=== PATIENT | male | born 1960 | race Caucasian/White ===

== ENCOUNTER 2020-05-04 14:52 | Inpatient (IN) | payer MEDICARE, SELFPAY ==
[2020-05-04] VITALS (8 sets, daily range): BP systolic 119–162; BP diastolic 70–87; PULSE 75–106; RESP 16–18; TEMP 36.5–36.9; O2SAT 95–97
--- NOTE | 2020-05-04 15:05 | XR_ITS ---
WS: [id number] Exam: XR foot RT min 3V* [id number] Date/Time of Exam: 05/04/2020 3:09 PM Reason For Exam: infection Comparison 08/31/2015. No acute fracture noted. Marked soft tissue swelling of the second toe. No obvious bone destruction a t this time. There is been amputation of the third toe. Advanced degenerative changes noted in the mi dfoot joints. Posterior heel spur. No soft tissue foreign bodies are seen. XR/XR foot RT min 3V* [id number] IMPRESSION: 1. Marked soft tissue swelling of the second toe. No bone destruction identifie d at this time. 2. No acute fracture. Degenerative changes. 3. Amputation of the third toe.
--- NOTE | 2020-05-04 17:00 | XR_ITS ---
WS: [id number] Exam: XR chest 1V portable [id number] Date/Time of Exam: 05/04/2020 5:07 PM Reason For Exam: reduced breath sounds Comparison 09/16/2015. Findings: The lungs are clear and fully expanded. Costophrenic angles are sharp. No infiltrates. Bronchovascula r relief appears normal. Cardiac silhouette is unremarkable. Bony elements are intact. XR/XR chest 1V portable [id number] IMPRESSION: Unremarkable chest radiograph.
[2020-05-04 17:03] LABS: Glucose Point of Care 348 mg/dL (70-110)
--- NOTE | 2020-05-04 17:05 | ECG_ITS ---
[facility] Test Date: 2020-05-04 Pat Name: Evan Iverson Jr Department: Room: Gender: Male Mental Telepathist: : 1960 Requested By: Jorge Black Order Number: [id number] Reading MD: ALONSO BRANCH Measurements Intervals [place] Rate: 93 P: -1 CA: 129 QRS: -4 QRSD: 97 T: 39 QT: 349 QTc: 436 Interpretive Statements SINUS RHYTHM LOW QRS VOLTAGE IN PRECORDIAL LEADS [QRS DEFLECTION < 1.0 mV IN CHEST LEADS] No previous ECG available for comparison Electronically Signed On 05-04-2020 20:07:11 NETWORK FIREWALL ENGINEER by ALONSO BRANCH [id number]
--- NOTE | 2020-05-04 17:06 | W.ED.EXTPRO ---
HPI - Extremity Problem General: Chief complaint: Extremity Problem,Nontraumatic Stated complaint: infected toe on right foot. Dr. Haas sent over Time Seen by Provider: 05/04/20 16:49 History of Present Illness: HPI Narrative: The patient is a 60-year-old male type II diabetic who comes to the ER complaining of right second toe swelling. He was seen at podiatry earlier today and told to come to the ER for evaluation. His right second toe has a large abscess and cellulitis to it extending to his right midfoot. He takes nothing for his diabetes. He says the oral medications make him vomit and the insulin makes him feel sick to his stomach. I described to him he already has his right third toe amputated and then they will start cutting feet legs off, kidney failure, infections, blindness, impotence, and . He says I have heard it all before man I do not care I am not going to take those medicines. MD Complaint: extremity pain and extremity swelling Location: right Quality: sharp Radiation: none Relieving factors: nothing Associated symptoms: Reports no associated symptoms; Deny chest pain or rash Review of Systems General: Reports: 10 or more systems reviewed and unremarkable except in HPI and below Const: Denies: fatigue Eyes: Denies: change in vision, blurry vision or eye redness ENMT: Denies: throat pain, swelling of lips/tongue, ear or mastoid pain or nasal congestion Card: Denies: chest pain, palpitations, irregular heart rhythm, edema, dyspnea on exertion or orthopnea Resp: Denies: dyspnea, productive cough or non-productive cough GI: Denies: abdominal pain, diarrhea or GI cramping : Denies: flank pain, urinary frequency or urinary urgency Musc: Reports: joint pain; Denies: neck pain, back pain, extremity pain, joint redness, limited range of motion or muscle weakness Skin/Breast: Denies: rash, pruritus, erythema, skin pain or skin tenderness Neuro: Denies: headache(s), numbness in extremities, weakness in extremities, sensory changes, difficulty walking, dizziness, confusion or Slurred speech present Psych: Denies: anxiety or depression Endo: Denies: polyuria All/Imm: Denies: urticaria, throat swelling or tongue swelling Physical Exam Const: COMMON NORMALS: no acute distress, average body habitus, patient oriented x3, no limitations, healthy appearing, alert and well nourished GENERAL APPEARANCE: cooperative, comfortable, well kempt and well developed ORIENTATION/CONSCIOUSNESS: Yes awake, Yes oriented to person, Yes oriented to place and Yes oriented to time HENMT: COMMON NORMALS: normocephalic, external ears normal and Normal external nose present HEAD & SCALP: normal to inspection and normocephalic NOSE: Normal external nose present EXTERNAL EAR: Yes external ears normal MOUTH: Normal oral and palatal mucosa present THROAT: posterior oropharynx normal Eye: COMMON NORMALS: Equal, round and reactive pupils present and EOMs intact bilaterally GENERAL EYE: appearance normal, both eyes and all related structures PUPIL: Yes Equal, round and reactive pupils present Neck/C-Spine: COMMON NORMALS: full ROM, no lymphadenopathy, no meningeal signs and no JVD GENERAL: Yes normal visual inspection Lymph: LYMPHATIC: no lymphadenopathy noted Chest: COMMONS NORMALS: normal inspection of the chest and normal palpation of entire chest wall Resp: COMMON NORMALS: normal respiratory effort, No retractions, No use of accessory muscles, clear to auscultation bilaterally and percussion normal EFFORT & INSPECTION: Yes able to speak in complete sentences AUSCULTATION: clear to auscultation bilaterally PERCUSSION: percussion normal Cardio: COMMON NORMALS: no JVD, regular rhythm, S1 normal heart sound present, S2 normal heart sound present and Peripheral pulses 2+ throughout RATE: tachycardic (100) RHYTHM: regular rhythm HEART SOUNDS: S1 normal heart sound present and S2 normal heart sound present PERIPHERAL PULSES: Peripheral pulses 2+ throughout GI: COMMON NORMALS: Normal to inspection, nondistended, normoactive bowel sounds present, Soft to palpation, non-tender and no masses INSPECTION: Yes normal to inspection PALPATION: Yes Soft to palpation : COMMON NORMALS: Yes no CVA tenderness BLADDER/KIDNEY EXAM: Yes no CVA tenderness Back/Pelvis: COMMON NORMALS: no CVA tenderness, thoracic and lumbar spine normal to inspection, no thoracic nor lumbar tenderness and thoraco-lumbar ROM normal Extremity: COMMON NORMALS: normal to inspection, full ROM, capillary refill normal, no joint enlargement and no pedal edema GENERAL: Yes normal exam except as noted Neuro: COMMON NORMALS: patient oriented x3, CN's II-XII intact bilaterally, moves all extremities, no focal motor deficits, no sensory deficits noted and gait normal SENSORIUM/ORIENTATION: Yes alert, Yes oriented to person, Yes oriented to place and Yes oriented to time MENINGEAL SIGNS: Yes no meningeal signs Psych: COMMON NORMALS: mental status grossly normal, Normal thought process present, cooperative, normal affect and speech normal APPEARANCE: Yes well kempt ATTITUDE: Yes calm SPEECH: Yes normal speech THOUGHT PROCESS: Normal thought process present Skin: COMMON NORMALS: no rashes or lesions noted NARRATIVE SKIN EXAM: Right third toe amputated. Right second toe large and swollen with obvious large abscess to the distal aspect. Likely need surgical drainage or amputation. Cellulitis extending to right midfoot from the abscess. Associated mild swelling and tenderness in the foot GENERAL SKIN EXAM: no rashes or lesions noted Course Vital Signs: Vital signs: Vital Signs Temperature 98.4 F 05/04/20 15:00 Pulse Rate 96 05/04/20 17:03 Respiratory Rate 18 05/04/20 17:03 Blood Pressure 119/78 05/04/20 17:03 Pulse Oximetry 97 05/04/20 17:03 MDM - Extremity (Nontraumatic) MDM Narrative: Medical decision making narrative: Patient comes in from Dr. Haas's office with a right second toe abscess. He is a noncompliant diabetic and refuses to take anything for his diabetes due to side effects. He already has his right third toe amputated. X-ray is negative for osteomyelitis but does show soft tissue swelling. He also has cellulitis to the right midfoot. He was started on IV Vanco, Zosyn, and IV fluids. Discussed with Dr. Haas who interestingly says he did not see him today. He has no records of him and his system either. He also says he is not on-call and cannot consult on this patient. Discussed with Dr. Connelly who declined the consult because he does not do toe abscesses. Discussed with who will follow him on the floor. Recommends CT IV contrast. Lab Data: Labs: Lab Results 05/04/20 05/04/20 05/04/20 Range/Units 16:58 17:10 17:10 WBC 8.2 (4.0-10.0) 10^3/ uL RBC 5.24 (4.1-5.3) 10^6/u L Hgb 14.8 (11.7-16.6) g/dL Hct 44.5 (42.0-52.0) % MCV 84.9 (80-94) fL MCH 28.2 (28.0-34.0) pg MCHC 33.3 (30.0-36.0) g/dL RDW 11.6 L (12.1-15.1) % Plt Count 253 (130-400) 10^3/c mm MPV 9.3 (7.4-10.4) fL Neut % (Auto) 71.9 % Lymph % (Auto) 13.0 % [place] % (Auto) 14.1 % Eos % (Auto) 0.4 % Baso % (Auto) 0.2 % Neut # (Auto) 5.88 (1.8-7.7) 10^3/u L Lymph # (Auto) 1.1 (0.8-4.8) 10^3/u L [place] # (Auto) 1.2 H (0.2-0.9) 10^3/u L Eos # (Auto) 0.0 (0.0-0.8) 10^3/u L Baso # (Auto) 0.0 (0.0-0.1) 10^3/u L Nucleated RBC % (a uto) 0 % Nucleated RBCs # 0.0 /100WBC Sodium 130 L (136-145) mmol/L Potassium 4.5 (3.5-5.1) mmol/L Chloride 95 L (98-107) mmol/L Carbon Dioxide 23 (22-29) mmol/L Anion Gap 16.5 (5-19) BUN 14 (8-23) mg/dL Creatinine 0.7 (0.7-1.2) mg/dL GFR Calculation 114.3 (90-130) mL/min Glucose 350 H (65-115) mg/dL POC Glucose 348 H (70-110) mg/dL Calculated Osmolal ity 284 L (285-295) mOsm/k g Lactic Acid (0.5-2.2) mmol/L Calcium 9.1 (8.5-10.5) mg/dL Total Bilirubin 0.7 (0.15-1.2) mg/dL AST 10 (0-40) U/L ALT 12 (0-41) U/L Alkaline Phosphata se 74 (40-130) IU/L C-Reactive Protein 107.9 H (0.0-4.9) mg/L Total Protein 7.5 (6.6-8.7) g/dL Albumin 3.8 (3.5-5.2) g/dL Globulin 3.7 (1.3-4.6) g/dL 05/04/20 Range/Units 17:10 WBC (4.0-10.0) 10^3/ uL RBC (4.1-5.3) 10^6/u L Hgb (11.7-16.6) g/dL Hct (42.0-52.0) % MCV (80-94) fL MCH (28.0-34.0) pg MCHC (30.0-36.0) g/dL RDW (12.1-15.1) % Plt Count (130-400) 10^3/c mm MPV (7.4-10.4) fL Neut % (Auto) % Lymph % (Auto) % [place] % (Auto) % Eos % (Auto) % Baso % (Auto) % Neut # (Auto) (1.8-7.7) 10^3/u L Lymph # (Auto) (0.8-4.8) 10^3/u L [place] # (Auto) (0.2-0.9) 10^3/u L Eos # (Auto) (0.0-0.8) 10^3/u L Baso # (Auto) (0.0-0.1) 10^3/u L Nucleated RBC % (a uto) % Nucleated RBCs # /100WBC Sodium (136-145) mmol/L Potassium (3.5-5.1) mmol/L Chloride (98-107) mmol/L Carbon Dioxide (22-29) mmol/L Anion Gap (5-19) BUN (8-23) mg/dL Creatinine (0.7-1.2) mg/dL GFR Calculation (90-130) mL/min Glucose (65-115) mg/dL POC Glucose (70-110) mg/dL Calculated Osmolal ity (285-295) mOsm/k g Lactic Acid 1.3 (0.5-2.2) mmol/L Calcium (8.5-10.5) mg/dL Total Bilirubin (0.15-1.2) mg/dL AST (0-40) U/L ALT (0-41) U/L Alkaline Phosphata se (40-130) IU/L C-Reactive Protein (0.0-4.9) mg/L Total Protein (6.6-8.7) g/dL Albumin (3.5-5.2) g/dL Globulin (1.3-4.6) g/dL Discharge Plan Discharge Patient Disposition: Admitted As Inpatient Clinical Impression: Abscess of second toe of right foot, Cellulitis, Hx of medication noncompliance Condition: Stable Coding Level of Care Code ED Investigator Welfare for Mayeg Fwd Exam Comprehensive
[2020-05-04 17:22] LABS: Basophils % 0.2 %; Eosinophils % 0.4 %; Hematocrit 44.5 % (42.0-52.0); Hemoglobin 14.8 g/dL (11.7-16.6); Lymphocytes # 1.1 10^3/uL (0.8-4.8); Mean Corpuscular HGB Conc 33.3 g/dL (30.0-36.0); Mean Corpuscular Hemoglobin 28.2 pg (28.0-34.0); Mean Corpuscular Volume 84.9 fL (80-94); Mean Platelet Volume 9.3 fL (7.4-10.4); Monocytes # 1.2 10^3/uL (0.2-0.9); Monocytes % 14.1 %; Neutrophils # 5.88 10^3/uL (1.8-7.7); Neutrophils % 71.9 %; Nucleated Red Blood Cells % 0 %; Platelet Count 253 10^3/cmm (130-400); Red Blood Count 5.24 10^6/uL (4.1-5.3); Red Cell Distribution Width 11.6 % (12.1-15.1); White Blood Count 8.2 10^3/uL (4.0-10.0)
[2020-05-04 17:40] LABS: Lactic Sepsis W/Reflex 1.3 mmol/L (0.5-2.2)
[2020-05-04] MEDS: vancomycin 1,000 MG in sodium chloride 0.9% 250 ML 250 MG IV ×2 (17:40→17:56)
[2020-05-04] MEDS: piperacillin-tazobactam 3.375 GM in sodium chloride 0.9% (plus) 50 ML IV (17:41)
[2020-05-04] MEDS: sodium chloride 0.9% 1,000 ML 999 ML IV (17:41)
[2020-05-04 17:47] LABS: Alanine Aminotransferase 12 U/L (0-41); Albumin Level 3.8 g/dL (3.5-5.2); Alkaline Phosphatase 74 IU/L (40-130); Anion Gap 16.5 (5-19); Aspartate Amino Transferase 10 U/L (0-40); Blood Urea Nitrogen 14 mg/dL (8-23); C Reactive Protein 107.9 mg/L (0.0-4.9); Calcium 9.1 mg/dL (8.5-10.5); Carbon Dioxide 23 mmol/L (22-29); Chloride 95 mmol/L (98-107); Creatinine Clr Calc Pharmacy 150.9269; Globulin 3.7 g/dL (1.3-4.6); Glomerular Filtration Rate 114.3 mL/min (90-130); Glucose 350 mg/dL (65-115); Osmolality Calculated 284 mOsm/kg (285-295); Potassium 4.5 mmol/L (3.5-5.1); Sodium 130 mmol/L (136-145); Total Bilirubin 0.7 mg/dL (0.15-1.2); Total Protein 7.5 g/dL (6.6-8.7)
--- NOTE | 2020-05-04 19:09 | CTR_ITS ---
PROCEDURE INFORMATION: Exam: CT Right Lower Extremity With Contrast, Foot Exam date and time: 05/04/2020 7:24 PM Age: 60 years old Clinical indication: Swelling, leg or foot; Prior surgery; Additional info: Osteomyelitis? TECHNIQUE: Imaging protocol: CT of the Right lower extremity with intravenous contrast was performed. Exam focused on the foot. Radiation optimization: All CT scans at this facility use at least one of these dose optimization techniques: automated exposure control; mA and/or kV adjustment per patient size (includes targeted exams where dose is matched to clinical indication); or iterative reconstruction. Contrast material: OMNI 300; Contrast volume: 95 ml; Contrast route: INTRAVENOUS (IV); COMPARISON: CR XR foot RT min 3V* [id number] 05/04/2020 3:07 PM RADIATION DOSE METRICS: Total DLP (mGy-cm): 350.88 FINDINGS: Bones/joints: Previous 3rd digit amputation. Distal phalanx of the 2nd toe is fragmented and eroded. Lucent changes are noted in the middle phalanx of the 2nd toes well. Proximal phalanx of the 2nd toe appears unremarkable. Productive osteoarthritis changes throughout the midfoot with osteophytes between tarsal bones and the metatarsal tarsal joint spaces. Hindfoot alignment is unremarkable. Calcaneal insertional enthesophytes are noted. Soft tissues: There is soft tissue thickening and soft tissue gas of the 2nd digit. Vasculature: Scattered arterial wall calcifications. CT/CT foot RT w con [id number] IMPRESSION: Osteomyelitis in the 2nd digit distal phalanx and middle phalanx with surrounding soft tissue infection with gas-forming organism. Radiation Dose CTDIVOL = (mGy): DLP = 350.88 (mGy-cm)
--- NOTE | 2020-05-04 19:24 | PM.HP ---
Providers/Chief Complaint Primary Care Provider: Sreekanth Balbuena, DEPUTY PROGRAM MANAGER-C Chief Complaint: infected toe on right foot. Dr. Haas sent over History of Present Illness Evan Iverson Jr is a 60 year old male with history of type 2 diabetes, noncompliant does not want to use insulin or Metformin because it makes him sick(nausea and vomiting), presented today from wound care clinic for worsening right second toe ulcer. Patient is stating that he noticed change in skin color around 3 days ago of right second toe and in 3 days it has gotten worse to the point it has some purulent drainage, black necrotic tissue and it has swollen more. He has not noticed any fever, nausea, vomiting, diarrhea. He is insensate in his extremities. Denies chest pain orthopnea, shortness of breath. He considers himself very active for his age he [id number] his [place]. Diagnostics in the ER revealed normal hemodynamics, does not show signs of sepsis, high CRP noted, I have requested ESR, however foot x-ray is it does show swelling of right second toe with edema, CT scan of second toe showed osteomyelitis with concern for gas gangrene. Review of Systems Const: Denies: fever(s), chills, body aches or change in appetite Eyes: Denies: change in vision ENMT: Denies: throat pain Card: Denies: chest pain Resp: Denies: dyspnea GI: Denies: abdominal pain : Denies: flank pain Musc: Reports: extremity swelling, joint pain, joint swelling, joint redness, joint warmth and joint stiffness; Denies: extremity pain Skin/Breast: Reports: skin pain, skin tenderness, skin swelling, new lesions, changing lesions, non-healing lesions and dry skin Neuro: Denies: headache(s) Psych: Denies: anxiety Endo: Denies: polyuria [place]/Lymph: Denies: easy bruising All/Imm: Denies: urticaria Medications/Allergies Home Medications Medication Instructions Recorded Confirmed Last Taken Type Vitamin B-12 1 tab PO QAM 05/04/20 05/04/20 05/04/20 History Vitamin C 1 tab PO QAM 05/04/20 05/04/20 05/04/20 History aspirin [Aspir-81] 81 mg PO QAM 05/04/20 05/04/20 05/04/20 History cholecalciferol (vitamin D3) 25 mcg PO QAM 05/04/20 05/04/20 05/04/20 History [Vitamin D3] cinnamon bark [Cinnamon] 2,500 mg PO BID 05/04/20 05/04/20 05/04/20 08:00 History ibuprofen 800 mg PO PRN 05/04/20 05/04/20 Unknown History turmeric 400 mg PO QAM 05/04/20 05/04/20 05/04/20 08:00 History zinc 1 cap PO QAM 05/04/20 05/04/20 05/04/20 History Allergies Allergy/AdvReac Type Severity Reaction Status Date / Time No Known Allergies Allergy Verified 05/04/20 17:20 PFSH Acute PFSH: Medical History Amputation toe Right toe 2015 through level of [place] tarsal phalangeal joint Diabetic foot ulcer Hx of medication noncompliance Peripheral neuropathy Type 2 diabetes mellitus Surgical History H/O hand surgery H/O knee surgery H/O neck surgery Family History Other Family history non-contributory Social History Smoking and tobacco status: never smoked Alcohol intake: former Substance/Drug Use: never Lives independently: Yes Housing: House Vitals/I&O/Wt Last Vital Signs Temp 98.4 F 05/04/20 15:00 Pulse 96 05/04/20 17:03 Resp 18 05/04/20 17:03 BP 119/78 05/04/20 17:03 Pulse Ox 97 05/04/20 17:03 05/04/20 05/04/20 05/04/20 06:59 14:59 22:59 Intake Total 50 / 50 Balance 50 / 50 Weight last 48 hrs Weight 97.522 kg Physical Exam Narrative: EXAM NARRATIVE: Very pleasant middle-aged male Currently comfortable in his bed not complaining of active pain however he is insensate in his extremities Currently saturating well on room air No active signs of sepsis S1, S2 sinus rhythm no active signs of heart failure No acute respiratory distress Abdomen soft nontender Awake alert oriented x3 No neurological deficit Right second toe with purulent base, black eschar at the dorsum of the toe with purulent cellulitis at the metatarsophalangeal joint, swelling 1+, dorsalis pedis pulses 1+ No cyanosis, gas/wet gangrene Left foot no skin ulcers or edema Data : 05/04/20 17:10 05/04/20 17:10 Micro: Microbiology 05/04/20 17:21 Blood Culture - Preliminary Blood SPECIMEN COLLECTED 05/04/20 17:20 Blood Culture - Preliminary Blood SPECIMEN COLLECTED A&P Assessment and plan (1) Abscess of second toe of right foot: Status: Acute (2) Cellulitis: Status: Acute (3) Osteomyelitis: Status: Acute Additional A&P Information Right second toe osteomyelitis Nonhealing diabetic foot ulcer, patient does have exposure to farm animals He has not been using Metformin or insulin We will check hemoglobin A1c, Dr. Sanon has been notified, I would add vancomycin Zosyn and clindamycin because of gas gangrene concerns, does not show signs of necrotizing fasciitis No active signs of sepsis We will keep him n.p.o. with normal saline He received short acting insulin in the ER I would not repeat at this time and check blood sugar every 6 hours while he is n.p.o. Noncompliant/suboptimally controlled type 2 diabetes We will check hemoglobin A1c level, for now I would keep him on moderate sliding scale and add long-acting insulin once he is able to eat after the surgery Full code N.p.o. DVT prophylaxis: SCDs Attestations Medical Necessity Statement*: Anticipating stay in the hospital cross more than 2 midnights he will need surgical intervention for right second toe osteomyelitis/gas gangrene Time Spent in Patient Care: (>than 50% of time spent in counselling and/or direct pt care on unit). 35mins Coding Level of Care Code Acute Telecommunication Tower Technician for Marva Orr Diagnoses Abscess of second toe of right foot L02.611 Cellulitis L03.90 Osteomyelitis M86.9
--- NOTE | 2020-05-04 19:40 | PM.CONSULT ---
Providers/Reason For Consult Consulting Physican/Specialty*: Chip Haas D.P.M. Reason for Consult*: Clarify documentation error Primary Care Provider: Sreekanth Balbuena, RICCARDO-Anna History of Present Illness History of Present Illness I was consulted by Dr. Aguilar from the emergency department this evening 05/04/2020 in regards to patient Evan Iverson. I would like to address multiple inaccuracies in the documentation from the emergency department physician. Chief complaint states that Dr. Haas referred this patient to the emergency department. THIS IS INCORRECT. I did not referred this patient to the emergency department. Mr. Iverson is unknown to me, I have never seen him in clinic, I do not know this gentleman, this is no documentation of me ever having been involved in his care. Unfortunately after being contacted by Dr. Aguilar and clarifying with him that I have not seen this patient his documentation remains unclear, my name remaines in the chief complaint as well as in the assessment and plan, this is likely a scribe documentation error. Meds/Allergies Home Medications and Allergies Home Medications Medication Instructions Recorded Confirmed Last Taken Type Vitamin B-12 1 tab PO QAM 05/04/20 05/04/20 05/04/20 History Vitamin C 1 tab PO QAM 05/04/20 05/04/20 05/04/20 History aspirin [Aspir-81] 81 mg PO QAM 05/04/20 05/04/20 05/04/20 History cholecalciferol (vitamin D3) 25 mcg PO QAM 05/04/20 05/04/20 05/04/20 History [Vitamin D3] cinnamon bark [Cinnamon] 2,500 mg PO BID 05/04/20 05/04/20 05/04/20 08:00 History ibuprofen 800 mg PO PRN 05/04/20 05/04/20 Unknown History turmeric 400 mg PO QAM 05/04/20 05/04/20 05/04/20 08:00 History zinc 1 cap PO QAM 05/04/20 05/04/20 05/04/20 History Allergies Allergy/AdvReac Type Severity Reaction Status Date / Time No Known Allergies Allergy Verified 05/04/20 17:20 PFSH Acute PFSH: Medical History (Updated 05/04/20 @ 19:29 by Asim Vickers MD) Amputation toe Right toe 2016 through level of [place] tarsal phalangeal joint Diabetic foot ulcer Hx of medication noncompliance Peripheral neuropathy Type 2 diabetes mellitus Surgical History (Updated 05/04/20 @ 19:29 by Asim Vickers MD) H/O hand surgery H/O knee surgery H/O neck surgery Family History (Updated 05/04/20 @ 19:29 by Asim Vickers MD) Other Family history non-contributory Social History (Updated 05/04/20 @ 19:29 by Asim Vickers MD) Smoking and tobacco status: never smoked Alcohol intake: former Substance/Drug Use: never Lives independently: Yes Housing: House Vitals/I&O/Wt Last Vital Signs Temp 98.4 F 05/04/20 15:00 Pulse 96 05/04/20 17:03 Resp 18 05/04/20 17:03 BP 119/78 05/04/20 17:03 Pulse Ox 97 05/04/20 17:03 05/04/20 05/04/20 05/04/20 06:59 14:59 22:59 Intake Total 50 / 50 Balance 50 / 50 Weight last 48 hrs Weight 215 lb Data Micro: Micro: Microbiology 05/04/20 17:21 Blood Culture - Pr eliminary Blood SPECIMEN COLLEC SAMANTHA 05/04/20 17:20 Blood Culture - Pr eliminary Blood SPECIMEN COLLE SAMANTHA Coding Level of Care Code Acute Counter Top Maker for Marva Orr
[2020-05-04] MEDS: iohexol 300 mg/mL 100 mL Btl IV (20:09)
[2020-05-04 20:12] LABS: Add Urine Microscopic? NO
[2020-05-04 20:31] LABS: Bilirubin Urine Neg (Negative); Blood Urine Neg (Negative); Glucose Urine UA 4+ (Normal); Ketones Urine 2+ (Negative); Leukocyte Esterase Urine Negative (Negative); Nitrate Urine Negative (Negative); Protein Urine Neg (Negative); Urine Appearance Clear (CLEAR); Urine Color Yellow (Yellow); Urobilinogen Urine Norm (Negative); pH Urine 5 (5-7)
[2020-05-04 22:29] LABS: Glucose Point of Care 382 mg/dL (70-110)
[2020-05-04 22:47] LABS: Chol HDL Ratio 4.78 mg/dL (1.0-5.00); Cholesterol 196 mg/dL (0-200); HDL Cholesterol 41 mg/dL (60-100); LDL Cholesterol Calculated 121 mg/dL (50-129); LDL HDL Ratio 2.95 RATIO (0.00-3.22); Triglycerides 172 mg/dL (0-150)
[2020-05-04 22:59] LABS: Erythrocyte Sedimentation Rate 56 mm/hr (0-10)
[2020-05-04] MEDS: clindamycin 600 MG/50 ML PREMIX 100 MG IV (23:22)
[2020-05-04] MEDS: sodium chloride 0.9% 1,000 ML 100 ML IV (23:22)
[2020-05-04] MEDS: ketorolac 30 mg/mL INJ 15 MG IVP (23:23)
[2020-05-04 23:29] LABS: Estmated Average Glucose 295; Hemoglobin A1C 11.9 % (4.0-6.0)
[2020-05-05] VITALS (10 sets, daily range): BP systolic 117–155; BP diastolic 58–85; PULSE 59–70; RESP 16–18; TEMP 36.1–37.1; O2SAT 95–98
--- NOTE | 2020-05-05 00:18 | PC.PHAR ---
Pharmacokinetic dosing service Date: 05/05/20 Time: 29 Objective: Patient: Evan Iverson Floor: 251-2 Age: 60 yo Serum creatinine: 0.7 mg/dL Height: 76.0 Inches Weight (kg): 97.522 Diagnosis: Relevant medical/social history: Cultures and sensitivities: Other labs: Assessment: IBW (kg): 86.80 Dosing wt(kg): 97.522 Estimated Creatinine clearance (ml/min): 130 Clearance limited to 130 ml/min to reduce risk of overdosing. CRCL method: Cockcroft and Gault using ibw(default). Drug selected: Vancomycin Loading dose (mg): 0 Vd (liters): 87.8 (factor used: 0.9 L/kg) Dagoberto (hr-1): 0.112 Half life (hrs): 6.19 Recommended dose: 1500 mg Interval: 8 hrs Infusion time (hrs): 1.5 Predicted peak (mcg/mL): 26.6 Predicted trough (mcg/mL): 12.84 Total body weight is being used for vancomycin dosing. Renal function is stable [ ] /unstable [ ] Recommendations: Give Vancomycin 1500 mg q 8 hrs with an expected Cpeak of 26.6 mcg/ml and an expected Ctrough of 12.84 mcg/ml Renal dosing of other antibiotics (review renal dosing of other medications and list guidelines here): Thank you for the consult, will continue to follow. Signature: Sheeba [facility]
[2020-05-05] MEDS: vancomycin 1,500 MG/300 ML PIGGYBACK 200 MG IV (01:08)
[2020-05-05] MEDS: piperacillin-tazobactam 3.375 GM in sodium chloride 0.9% (plus) 50 ML IV ×4 (03:22→18:18)
[2020-05-05 03:26] LABS: Basophils % 0.3 %; Eosinophils # 0.1 10^3/uL (0.0-0.8); Eosinophils % 1.2 %; Hematocrit 40.2 % (42.0-52.0); Hemoglobin 13.2 g/dL (11.7-16.6); Lymphocytes # 1.8 10^3/uL (0.8-4.8); Lymphocytes % 27.5 %; Mean Corpuscular HGB Conc 32.8 g/dL (30.0-36.0); Mean Corpuscular Hemoglobin 27.9 pg (28.0-34.0); Mean Platelet Volume 9.5 fL (7.4-10.4); Monocytes # 1.3 10^3/uL (0.2-0.9); Monocytes % 19.1 %; Neutrophils % 51.4 %; Nucleated Red Blood Cells % 0 %; Platelet Count 234 10^3/cmm (130-400); Red Blood Count 4.73 10^6/uL (4.1-5.3); Red Cell Distribution Width 11.6 % (12.1-15.1); White Blood Count 6.6 10^3/uL (4.0-10.0)
[2020-05-05 03:47] LABS: Blood Urea Nitrogen 15 mg/dL (8-23); Calcium 8.8 mg/dL (8.5-10.5); Carbon Dioxide 26 mmol/L (22-29); Chloride 104 mmol/L (98-107); Glomerular Filtration Rate 114.3 mL/min (90-130); Glucose 208 mg/dL (65-115); Osmolality Calculated 291 mOsm/kg (285-295); Sodium 137 mmol/L (136-145)
[2020-05-05 05:18] LABS: Glucose Point of Care 262 mg/dL (70-110)
--- NOTE | 2020-05-05 05:57 | PM.CONSULT ---
Providers/Reason For Consult Consulting Physican/Specialty*: Alphonse Sanon MD Reason for Consult*: Diabetic foot infection Attending Physician: Asim Vickers MD Primary Care Provider: CLYDE Johnson History of Present Illness History of Present Illness Mr. Evan Iverson Jr is a 60 year old male presents to the emergency department with worsening diabetic foot infection involving the right second toe. Patient denies fevers chills nausea or vomiting reports that over the past couple of days got worse, no history of trauma and he does give history of right third toe amputation. Right foot x-ray No acute fracture noted. Marked soft tissue swelling of the second toe. No obvious bone destruction at this time. There is been amputation of the third toe. Advanced degenerative changes noted in the midfoot joints. Posterior heel spur. No soft tissue foreign bodies are seen. XR/XR foot RT min 3V* [id number] IMPRESSION: 1. Marked soft tissue swelling of the second toe. No bone destruction identified at this time. 2. No acute fracture. Degenerative changes. 3. Amputation of the third toe. CT scan: FINDINGS: Bones/joints: Previous 3rd digit amputation. Distal phalanx of the 2nd toe is fragmented and eroded. Lucent changes are noted in the middle phalanx of the 2nd toes well. Proximal phalanx of the 2nd toe appears unremarkable. Productive osteoarthritis changes throughout the midfoot with osteophytes between tarsal bones and the metatarsal tarsal joint spaces. Hindfoot alignment is unremarkable. Calcaneal insertional enthesophytes are noted. Soft tissues: There is soft tissue thickening and soft tissue gas of the 2nd digit. Vasculature: Scattered arterial wall calcifications. CT/CT foot RT w con [id number] IMPRESSION: Osteomyelitis in the 2nd digit distal phalanx and middle phalanx with surrounding soft tissue infection with gas-forming organism. Patient was admitted on the hospitalist service for diabetes management and control General surgery was consulted for further evaluation and potential intervention Review of Systems General: Reports: 10 or more systems reviewed and unremarkable except in HPI and below Meds/Allergies Home Medications and Allergies Home Medications Medication Instructions Recorded Confirmed Last Taken Type Vitamin B-12 1 tab PO QAM 05/04/20 05/04/20 05/04/20 History Vitamin C 1 tab PO QAM 05/04/20 05/04/20 05/04/20 History aspirin [Aspir-81] 81 mg PO QAM 05/04/20 05/04/20 05/04/20 History cholecalciferol (vitamin D3) 25 mcg PO QAM 05/04/20 05/04/20 05/04/20 History [Vitamin D3] cinnamon bark [Cinnamon] 2,500 mg PO BID 05/04/20 05/04/20 05/04/20 08:00 History ibuprofen 800 mg PO PRN 05/04/20 05/04/20 Unknown History turmeric 400 mg PO QAM 05/04/20 05/04/20 05/04/20 08:00 History zinc 1 cap PO QAM 05/04/20 05/04/20 05/04/20 History Allergies Allergy/AdvReac Type Severity Reaction Status Date / Time No Known Allergies Allergy Verified 05/05/20 06:08 Current Medications Current Medications Generic Name Dose Route Start Last Admin Trade Name Freq PRN Reason Stop Dose Admin Clindamycin HCl/Dextrose 600 mg in 50 mls @ 100 mls/hr 05/04/20 23:00 05/05/20 03:22 Cleocin IV 05/05/20 15:29 Infused Q8H SEBASTIÁN Infusion Protocol Piperacillin Sod/Tazobactam 50 mls @ 12.5 mls/hr 05/05/20 02:00 05/05/20 03:22 Sod 3.375 gm/ Sodium Chloride IV 12.5 mls/hr Q8H SEBASTIÁN Administration Protocol Sodium Chloride 1,000 mls @ 100 mls/hr 05/04/20 21:55 05/05/20 03:22 Sodium Chloride 0.9% IV 100 mls/hr .Q10H SEBASTIÁN Infusion Vancomycin/PEG/NADA/Lysine/Water 1,500 mg in 300 mls @ 200 mls/hr 05/05/20 00:30 05/05/20 03:23 Vancocin IV Infused Q8H SEBASTIÁN Infusion Insulin Aspart 0 unit 05/04/20 21:55 05/04/20 23:23 Insulin Aspart 100 Unit/1 Ml SUBCUT 12 unit WM&BEDTIME SEBASTIÁN Administration Protocol PFSH Acute PFSH: Medical History Amputation toe Right toe 2016 through level of [place] tarsal phalangeal joint Diabetic foot ulcer Hx of medication noncompliance Peripheral neuropathy Type 2 diabetes mellitus Surgical History H/O hand surgery H/O knee surgery H/O neck surgery Family History Other Family history non-contributory Social History Smoking and tobacco status: never smoked Alcohol intake: former Substance/Drug Use: never Lives independently: Yes Housing: House Vitals/I&O/Wt Last Vital Signs Temp 98.2 F 05/05/20 04:14 Pulse 68 05/05/20 04:14 Resp 18 05/05/20 04:14 BP 155/73 05/05/20 04:14 Pulse Ox 97 05/05/20 04:14 05/04/20 05/04/20 05/05/20 14:59 22:59 06:59 Intake Total 1550 / 1550 750 / 2300 Output Total 0 / 0 Balance 1550 / 1550 750 / 2300 Weight last 48 hrs Weight 215 lb Physical Exam Narrative: EXAM NARRATIVE: Patient is conscious alert oriented X3 BMI 26 Head and neck examination PERRLA no masses no cervical lymphadenopathy no jaundice Cardiac examination audible S1-S2 no murmurs no gallops no arrhythmias Chest is clear bilateral,abscence of Rhonchi or wheezes,no surgical emphysema Abdomen nontender nondistended soft no organomegaly guarding or rigidity/no signs of peritonitis Right foot palpable right dorsalis pedis artery and posterior tibial artery with swelling of the right second toe with cellulitis and edema. Capillary refill less than 2 seconds. Evidence of amputation of right third toe in the past. Data Micro: Micro: Microbiology 05/04/20 17:21 Blood Culture - Pr eliminary Blood SPECIMEN [facility] 05/04/20 17:20 Blood Culture - Pr eliminary Blood SPECIMEN [facility] A&P Assessment and plan (1) Abscess of second toe of right foot: After thorough history physical examination reviewing the chart and images of the x-rays and CT scan with my personal interpretation we will proceed with right second toe amputation as I did patient financial counselor the patient and he agrees to proceed accordingly. Informed consent per chart Status: Acute Consult Attestations Medical Necessity Statement: Hospitalization for medical management of diabetes and perioperative care of right second toe amputation Time Spent in Patient Care: (>than 50% of time spent in counselling and/or direct pt care on unit). Coding Level of Care Code Acute Local Company Truck Driver for Marva Orr Diagnoses Abscess of second toe of right foot L02.611
[2020-05-05] MEDS: clindamycin 600 MG/50 ML PREMIX 100 MG IV ×2 (06:24→14:53)
--- NOTE | 2020-05-05 07:31 | PC.NURSE ---
AM NOTE SEE PTS SKIN ASSESSMENT IN WOUND ASSESSMENT
[2020-05-05] MEDS: vancomycin 1,500 MG/300 ML PIGGYBACK 300 MG IV ×2 (08:13→16:12)
--- NOTE | 2020-05-05 10:08 | PC.NURSE ---
OR NOTE OFF FLOOR VIA OR STRETCHER WITH TYRONE CHIN AT SIDE
--- NOTE | 2020-05-05 10:50 | PC.CHAP ---
Pastoral Care Encounter/Spiritual Assessment Type of Contact [] Declined raiser helper visit [] Patient/Family/Request visit [] Outpatient visit [x] Follow-up visit [] Physician referral [] Code/Alert [] Routine visit [] Staff referral [] Actively dying [] Patient sleeping [] Family support [] [] Out of room [] Palliative care [] [] Receiving care in room [] Pre-surgical visit [] Trauma [] Long length of stay [] ICU visit [] Other: Relational/Emotional Strength [] Patient feels connected with others/family/visitors/staff [] Distress [] Loneliness/isolation [] Abandonment Spirituality of Patient [] Person of [place] [] Attends Yazidism of their [place] [] Believes in Prayer [] Reads Bible or Moravian materials [] There are Spiritual issues to be addressed Product/Device Technologist Interventions [] Prayer [] Active listening [] Non-anxious presence [] Spiritual/emotional support [] Crisis/trauma care [] Spiritual counseling [] Bereavement support [] Provided bereavement packet [] Provided Bible/devotional materials [] Provided toy/stuffed animal, coloring book to patient or family member [] Provided Communion [] Anointing/[place] [] Salvation [] Completed spiritual assessment [] Other: Impact on Illness or Injury [] Angry [] Fearful [] Anxious [] Often cries [] Exhaustion [] Unable to work [] Unable to attend pentecostalism [] Unable to walk/stand [] Unable to read [] Unable to drive [] Unable to eat/drink [] Unable to sleep [] Unable to be with family [] Patient intubated [] Other: Summary Follow-up visit Time spent with patient 5 min s
--- NOTE | 2020-05-05 11:19 | P.ANESASSM_ITS ---
Pre-Anesthetic Assessment Pre-Anesthetic Assessment: Height/Weight: Height 1.93 m Weight 97.522 kg Temp Pulse Resp BP Pulse Ox 98.8 F 70 18 117/58 96 05/05/20 11:02 05/05/20 11:02 05/05/20 11:02 05/05/20 11:02 05/05/20 11:02 Preop Diagnosis: Right diabetic foot infection Proposed Procedure: Operation Date: 05/05/20 11:25 Proposed Procedures p amputation right second toe(Not Applicable) - Alphonse Sanon MD Was Beta Elizabeth taken within 24 hours: N/A Last intake: Intake Last Liquid Date 05/05/20 Last Liquid Time 08:00 Last Solid Date 05/04/20 Last Solid Time 22:00 Social: Social History: No alcohol and No tobacco Exam: Pre-Anes Outpt Exam: alert, oriented x 3, clear to auscultation bilaterally and regular rate & rhythm Airway: Submandibular: WNL Cervical ROM: WNL MP: 2 Dentition: Full Metabolic: Metabolic: DM (poorly controlled) Neuropsych: Neuropsych: Neuropathy Anesthetic Plan: ASA status: 3 Anesthesia: MAC Risk of > 500 ml blood loss (7ml/kg in children): No Meds/Allergies Current Medications: Current Medications Generic Name Dose Route Start Last Admin Trade Name Freq PRN Reason Stop Dose Admin Clindamycin HCl/De xtrose 600 mg in 50 mls @ 100 mls/hr 05/04/20 23:00 05/05/20 06:54 Cleocin IV Infused Q8H SEBASTIÁN Infusion Protocol Piperacillin Sod/T azobactam 50 mls @ 12.5 mls /hr 05/05/20 02:00 05/05/20 10:15 Sod 3.375 gm/ So dium Chloride IV 12.5 mls/hr Q8H SEBASTIÁN Administration Protocol Sodium Chloride 1,000 mls @ 100 m ls/hr 05/04/20 21:55 05/05/20 03:22 Sodium Chloride 0.9% IV 100 mls/hr .Q10H SEBASTIÁN Infusion Vancomycin/PEG/NAD A/Lysine/Water 1,500 mg in 300 m ls @ 200 mls/hr 05/05/20 00:30 05/05/20 08:13 Vancocin IV 300 mls/hr Q8H SEBASTIÁN Administration Insulin Aspart 0 unit 05/04/20 21:55 05/05/20 08:12 Insulin Aspart 1 00 Unit/1 Ml SUBCUT 10 unit WM&BEDTIME SEBASTIÁN Administration Protocol PFSH Anesthesia PFSH: Medical History Amputation toe Right toe 2015 through level of [place] tarsal phalangeal joint Diabetic foot ulcer Hx of medication noncompliance Peripheral neuropathy Type 2 diabetes mellitus Surgical History H/O hand surgery H/O knee surgery H/O neck surgery Family History Other Family history non-contributory Social History Smoking and tobacco status: never smoked Alcohol intake: former Substance/Drug Use: never Lives independently: Yes Housing: House Data Anesthesia CBC & Chem 7: 05/05/20 02:53 05/05/20 02:53 Other Labs: Laboratory Results - last 48 hr 05/04/20 05/04/20 05/04/20 16:58 17:10 17:10 WBC 8.2 RBC 5.24 Hgb 14.8 Hct 44.5 MCV 84.9 MCH 28.2 MCHC 33.3 RDW 11.6 L Plt Count 253 MPV 9.3 Neut % (Auto) 71.9 Lymph % (Auto) 13.0 [place] % (Auto) 14.1 Eos % (Auto) 0.4 Baso % (Auto) 0.2 Neut # (Auto) 5.88 Lymph # (Auto) 1.1 [place] # (Auto) 1.2 H Eos # (Auto) 0.0 Baso # (Auto) 0.0 Nucleated RBC % (auto) 0 Nucleated RBCs # 0.0 ESR Sodium 130 L Potassium 4.5 Chloride 95 L Carbon Dioxide 23 Anion Gap 16.5 BUN 14 Creatinine 0.7 GFR Calculation 114.3 Glucose 350 H POC Glucose 348 H Estimat Average Glucose Hemoglobin A1c Calculated Osmolality 284 L Lactic Acid Calcium 9.1 Total Bilirubin 0.7 AST 10 ALT 12 Alkaline Phosphatase 74 C-Reactive Protein 107.9 H Total Protein 7.5 Albumin 3.8 Globulin 3.7 Triglycerides Cholesterol LDL Cholesterol, Calc HDL Cholesterol LDL/HDL Ratio Cholesterol/HDL Ratio Urine Color Urine Appearance Urine pH Ur Specific Emerson Urine Protein Urine Glucose (UA) Urine Ketones Urine Blood Urine Nitrate Urine Bilirubin Urine Urobilinogen Ur Leukocyte Esterase 05/04/20 05/04/20 05/04/20 17:10 17:10 17:10 WBC RBC Hgb Hct MCV MCH MCHC RDW Plt Count MPV Neut % (Auto) Lymph % (Auto) [place] % (Auto) Eos % (Auto) Baso % (Auto) Neut # (Auto) Lymph # (Auto) [place] # (Auto) Eos # (Auto) Baso # (Auto) Nucleated RBC % (auto) Nucleated RBCs # ESR 56 H Sodium Potassium Chloride Carbon Dioxide Anion Gap BUN Creatinine GFR Calculation Glucose POC Glucose Estimat Average Glucose 295 Hemoglobin A1c 11.9 H Calculated Osmolality Lactic Acid 1.3 Calcium Total Bilirubin AST ALT Alkaline Phosphatase C-Reactive Protein Total Protein Albumin Globulin Triglycerides Cholesterol LDL Cholesterol, Calc HDL Cholesterol LDL/HDL Ratio Cholesterol/HDL Ratio Urine Color Urine Appearance Urine pH Ur Specific [place] Urine Protein Urine Glucose (UA) Urine Ketones Urine Blood Urine Nitrate Urine Bilirubin Urine Urobilinogen Ur Leukocyte Esterase 05/04/20 05/04/20 05/04/20 17:10 17:43 22:14 WBC RBC Hgb Hct MCV MCH MCHC RDW Plt Count MPV Neut % (Auto) Lymph % (Auto) [place] % (Auto) Eos % (Auto) Baso % (Auto) Neut # (Auto) Lymph # (Auto) [place] # (Auto) Eos # (Auto) Baso # (Auto) Nucleated RBC % (auto) Nucleated RBCs # ESR Sodium Potassium Chloride Carbon Dioxide Anion Gap BUN Creatinine GFR Calculation Glucose POC Glucose 382 H Estimat Average Glucose Hemoglobin A1c Calculated Osmolality Lactic Acid Calcium Total Bilirubin AST ALT Alkaline Phosphatase C-Reactive Protein Total Protein Albumin Globulin Triglycerides 172 H Cholesterol 196 LDL Cholesterol, Calc 121 HDL Cholesterol 41 L LDL/HDL Ratio 2.95 Cholesterol/HDL Ratio 4.78 Urine Color Yellow Urine Appearance Clear Urine pH 5 Ur Specific Emerson 1.020 Urine Protein Neg Urine Glucose (UA) 4+ H Urine Ketones 2+ H Urine Blood Neg Urine Nitrate Negative Urine Bilirubin Neg Urine Urobilinogen Norm Ur Leukocyte Esterase Negative 05/05/20 05/05/20 05/05/20 02:53 02:53 05:10 WBC 6.6 RBC 4.73 Hgb 13.2 Hct 40.2 L MCV 85.0 MCH 27.9 L MCHC 32.8 RDW 11.6 L Plt Count 234 MPV 9.5 Neut % (Auto) 51.4 Lymph % (Auto) 27.5 [place] % (Auto) 19.1 Eos % (Auto) 1.2 Baso % (Auto) 0.3 Neut # (Auto) 3.40 Lymph # (Auto) 1.8 [place] # (Auto) 1.3 H Eos # (Auto) 0.1 Baso # (Auto) 0.0 Nucleated RBC % (auto) 0 Nucleated RBCs # 0.0 ESR Sodium 137 Potassium 4.0 Chloride 104 Carbon Dioxide 26 Anion Gap 11.0 BUN 15 Creatinine 0.7 GFR Calculation 114.3 Glucose 208 H POC Glucose 262 H Estimat Average Glucose Hemoglobin A1c Calculated Osmolality 291 Lactic Acid Calcium 8.8 Total Bilirubin AST ALT Alkaline Phosphatase C-Reactive Protein Total Protein Albumin Globulin Triglycerides Cholesterol LDL Cholesterol, Calc HDL Cholesterol LDL/HDL Ratio Cholesterol/HDL Ratio Urine Color Urine Appearance Urine pH Ur Specific [place] Urine Protein Urine Glucose (UA) Urine Ketones Urine Blood Urine Nitrate Urine Bilirubin Urine Urobilinogen Ur Leukocyte Esterase Micro: Microbiology 05/04/20 17:21 Blood Culture - Preliminary Blood SPECIMEN COLLECTED 05/04/20 17:20 Blood Culture - Preliminary Blood SPECIMEN COLLECTED Cardiac Studies: No Data to Display
[2020-05-05] MEDS: lidocaine 2% INJ 20 mL (13:11)
--- NOTE | 2020-05-05 13:34 | P.OP_ITS ---
Operative Report Date of procedure: May 05, 2020 Pre-op Diagnosis: Right diabetic foot infection Post-op diagnosis: same (Right diabetic foot infection with involvement of right second toe showing wet gangrene) Procedure Done: Amputation of right second toe Specimens removed/disposition: Right second toe Surgeon: Alphonse Sanon Ripening Room Attendant: factory focus technician Lynne Circulating nurse Abbi Anesthesia: MAC (Alcides Boothe), Local and Other (Digital block of right second toe Dr. Sanon) Estimated blood loss (mL): 5 Condition: stable Disposition: floor Brief History: Full H&P per chart for right diabetic foot infection with wet gangrene of right second toe Informed consent per chart Procedure: Right second toe amputation to the level of the proximal part of proximal phalanx Patient after being identified in the holding area and his right lower extremity was marked by me, and informed consent per chart ,patient was then taken back to the OR placed in supine position got IV propofol by anesthesia. Time-out was done verifying the patient's name/date of /planned procedure and destination after the procedure,all were in agreement.preoperative antibiotics administered per protocol, and beta alberto protocol was confirmed. prep and drape of the right lower extremity was done under the usual sterile technique. I started by digital nerve block of the right second toe(wet gangrene of the right second toe), an elliptical longitudinal skin incision at the base of the right second toe was done, dissection was carried down all the way to the proximal phalanx, were an electric saw used to amputate at the level of the healthier proximal half of the proximal phalanx of the right second toe. The specimen was then passed to the circulating nurse for permanent pathology, and electric bone rasp was used to Sooth the edges of the amputated bone,hemostasis was achieved followed by copious and thorough irrigation, 3-0 yes was used to cover the bone with the related tendon, followed by deep subdermal closure then interrupted figure of mattress 3-0 nylon sutures. Followed by dry dressing, then ABD Kerlix and Count was completed at the end of the procedure I was present for the whole entire procedure Patient was then taken to the recovery in stable condition.
--- NOTE | 2020-05-05 13:52 | ANE.PACU2 ---
Inpatient post-anesthesia follow up: Airway intact: Yes Vital signs: Temperature 98.0 F Pulse Rate [Apical ] 96 Pulse Rate 63 Respiratory Rate 16 Blood Pressure [Le ft Arm] 145/85 Blood Pressure 120/85 Pulse Oximetry 95 Oxygen Delivery Me thod Room Air Oxygen Flow Rate Fraction of Inspir ed Oxygen Hydration adequate: Yes Nausea and vomiting: No Pain level: 1 Mental status: Baseline
--- NOTE | 2020-05-05 14:48 | PC.NURSE ---
OR NOTE UP VIA ELSY WITH TYRONE GILLESPIE ASSISTING PT TO BED - THIS NURSE NOT PRESENT IN ROOM AT TIME OF BED TRANSFER - HAND OFF GIVEN - AP RRR - LUNGS CTA THROUGHOUT - ABD SOFT WITH NO DISTENTION BS - IV TO LEFT ARM INFUSING VIA PUMP - BULKY MAUREEN DRESSING TO RIGHT FOOT C/D/I
[2020-05-05] MEDS: sodium chloride 0.9% 1,000 ML 100 ML IV (14:54)
--- NOTE | 2020-05-05 15:53 | PM.PN ---
Subjective Subjective: Interval history: Patient states he would like to lower his blood sugars naturally. He wants to go to a natural path. He does not check his blood sugars at home. He has lost about 50 pounds recently. No complaints. Medications: Reviewed: Yes Vitals/I&O/Wt Last Vital Signs Temp 96.9 F L 05/05/20 14:20 Pulse 61 05/05/20 14:20 Resp 16 05/05/20 14:20 BP 142/74 05/05/20 14:20 Pulse Ox 98 05/05/20 14:20 05/05/20 05/05/20 05/05/20 06:59 14:59 22:59 Intake Total 800 / 2350 950 / 950 100 / 1050 Output Total 0 / 0 255 / 255 Balance 800 / 2350 695 / 695 100 / 795 Weight last 48 hrs Weight 97.522 kg Physical Exam Narrative: EXAM NARRATIVE: General: Patient appears his stated age of 60. He is in no acute distress at time of exam Heart: Rate and rhythm are regular. Normal S1-S2 without murmurs clicks gallops rubs Lung: Clear to auscultation bilaterally without wheezes rales or rhonchi Abdomen: Soft nontender nondistended normal bowel sounds no hepatosplenomegaly or masses palpated Extremities: No clubbing cyanosis or edema in the lower extremities or ankles. Did not remove dressing. Data : 05/05/20 02:53 05/05/20 02:53 Micro: Microbiology 05/04/20 17:21 Blood Culture - Preliminary Blood SPECIMEN COLLECTED 05/04/20 17:20 Blood Culture - Preliminary Blood SPECIMEN COLLECTED A&P Assessment and plan (1) Uncontrolled diabetes mellitus: Patient's hemoglobin A1c is over 11. He is rather unrealistic about natural medications assisting this condition. I have scheduled insulin to start tonight at 10 units Lantus. I ordered agricultural extension educator hopefully he can at least get an Accu-Chek machine at home and hopefully education. Status: Acute (2) Osteomyelitis: iDiscussed with Dr. Graf. He completely removed all infected bone and tissue. It is reasonable to continue antibiotics due to patient's hyperglycemia Status: Acute (3) Abscess of second toe of right foot: Status post amputation Status: Acute Attestations Medical Necessity Statement*: osteomyelitis and uncontrolled DM with new insulin start Coding Level of Care Code Acute Vacuum Cleaner Mechanic for Chg Fwd Diagnoses Uncontrolled diabetes mellitus E11.65 Osteomyelitis M86.9 Abscess of second toe of right foot L02.611
[2020-05-05 16:46] LABS: Glucose Point of Care 302 mg/dL (70-110)
[2020-05-05 20:27] LABS: Glucose Point of Care 301 mg/dL (70-110)
[2020-05-05] MEDS: insulin glargine 100 units/1 mL 10 UNIT SUBCUT (21:41)
[2020-05-05 23:56] LABS: Vancomycin Trough 15.9 ug/mL (10-15)
[2020-05-06] VITALS: BP 142/73; PULSE 62; RESP 18; TEMP 36.7; O2SAT 97
[2020-05-06] MEDS: vancomycin 1,500 MG/300 ML PIGGYBACK 300 MG IV (00:40)
[2020-05-06 00:46] LABS: Glucose Point of Care 187 mg/dL (70-110)
[2020-05-06 04:00] VITALS: BP 152/79; PULSE 63; RESP 18; TEMP 36.6; O2SAT 97
[2020-05-06] MEDS: sodium chloride 0.9% 1,000 ML 100 ML IV (04:09)
--- NOTE | 2020-05-06 06:13 | P.PN_ITS ---
Subjective Subjective: Interval history: Patient overall is feeling better and doing well. No acute events overnight. Undergone uneventful right second toe amputation 05/05/2020. Vitals/I&O/Wt Last Vital Signs Temp 97.9 F 05/06/20 04:00 Pulse 63 05/06/20 04:00 Resp 18 05/06/20 04:00 BP 152/79 05/06/20 04:00 Pulse Ox 97 05/06/20 04:00 05/05/20 05/05/20 05/06/20 14:59 22:59 06:59 Intake Total 950 / 950 645.625 / 3670.572 8660 / 3185.625 Output Total 255 / 255 600 / 855 760 / 1615 Balance 695 / 695 45.625 / 740.625 830 / 1570.625 Weight last 48 hrs Weight 215 lb Physical Exam Narrative: EXAM NARRATIVE: Patient is conscious alert oriented X3 BMI 26.2 Right foot dressing is dry and in place. Incision is clean dry and intact, sutures in place Data : 05/05/20 02:53 05/05/20 02:53 Micro: Microbiology 05/04/20 17:21 Blood Culture - Preliminary Blood NEGATIVE TO DATE 05/04/20 17:20 Blood Culture - Preliminary Blood NEGATIVE TO DATE A&P Assessment and plan (1) Abscess of second toe of right foot: Patient is a status post amputation of right second toe 05/05/2020 Daily dressing change in the form of 4 x 4's ABDs Kerlix and Nasir Nonweightbearing right forefoot Upon discharge patient can follow-up with me at surgical nurse practitioner clinic in 1 week Defer diabetes management and education to hospitalist service Assurance and education All questions have been answered and all concerns have been addressed to patient's satisfaction. Status: Acute Attestations Medical Necessity Statement*: Ongoing hospitalization for medical management of diabetes and perioperative surgical care of right second toe amputation Time Spent in Patient Care: 16 - 35 minutes (>than 50% of time spent in counselling and/or direct pt care on unit) . Coding Level of Care Code Acute Burn Nurse for Marva Orr Diagnoses Abscess of second toe of right foot L02.611
[2020-05-06 06:22] LABS: Glucose Point of Care 272 mg/dL (70-110)
[2020-05-06 07:24] VITALS: BP 162/87; PULSE 63; RESP 17; TEMP 36.8; O2SAT 97
[2020-05-06] MEDS: vancomycin 1,500 MG/300 ML PIGGYBACK 200 MG IV (08:16)
[2020-05-06] MEDS: piperacillin-tazobactam 3.375 GM in sodium chloride 0.9% (plus) 50 ML IV (10:04)
[2020-05-06 10:56] LABS: Glucose Point of Care 327 mg/dL (70-110)
[2020-05-06 12:00] VITALS: BP 161/75; PULSE 69; RESP 18; TEMP 36.5; O2SAT 96
--- NOTE | 2020-05-06 12:53 | P.DS_ITS ---
Discharge Providers Date of Admission: 05/04/20 19:17 Date of Discharge: May 06, 2020 Attending Provider at Admission: Asim Vickers MD Attending Provider at Discharge: Buddy Chatman Primary Care Provider: CLYDE Johnson Diagnoses at Discharge Discharge Diagnosis (1) Abscess of second toe of right foot: Status: Resolved Reason for Visit Reason for Visit: infected toe on right foot. Dr. Haas sent over Hospital Course Hospital Course 60 year old male with history of type 2 diabetes, noncompliant does not want to use insulin or Metformin because it makes him sick(nausea and vomiting), presented today from wound care clinic for worsening right second toe ulcer. Patient is stating that he noticed change in skin color around 3 days ago of right second toe and in 3 days it has gotten worse to the point it has some purulent drainage, black necrotic tissue and it has swollen more. He has not noticed any fever, nausea, vomiting, diarrhea. He is insensate in his extremities. Denies chest pain orthopnea, shortness of breath. He considers himself very active for his age he [id number] his [address] [place]. Diagnostics in the ER revealed normal hemodynamics, does not show signs of sepsis, high CRP noted, I have requested ESR, however foot x-ray is it does show swelling of right second toe with edema, CT scan of right second toe showed osteomyelitis with concern for gas gangrene. Patient was started on Vancomycin and Zosyn 3.375g IV q8hr. Patient was taken for right second toe amputation by general surgery on 05/05. Post op patient has been doing well. 05/04 blood culture take did not show any growth. Wound culture also did not show any growth on preliminary cultures. At the time I assumed care the patient and discussed with general surgery he was stable for discharge on oral antibiotics with close outpatient follow-up with wound care clinic. Patient was discharged in stable condition. Physical Exam Narrative: EXAM NARRATIVE: General: Patient appears his stated age of 60. He is in no acute distress at time of exam Heart: Rate and rhythm are regular. Normal S1-S2 without murmurs clicks gallops rubs Lung: Clear to auscultation bilaterally without wheezes rales or rhonchi Abdomen: Soft nontender nondistended normal bowel sounds no hepatosplenomegaly or masses palpated Extremities: No clubbing cyanosis or edema in the lower extremities or ankles. Did not remove dressing. Discharge Data Data Completed and Pending: Completed Studies During Hospitalization Category Date Time Status CT foot RT w con [id number] Stat Cat Scan 05/04/20 19:09 Completed XR chest 1V ayse ble [id number] Urgent Exams 05/04/20 17:00 Completed XR foot RT min 3V * [id number] Urgent Exams 05/04/20 15:05 Completed Pending at discharge Category Date Time Status Blood Culture Sta t Lab 05/04/20 17:21 Results Wound Culture Sta t Lab 05/04/20 20:58 Results Wound Culture and Gram Stain Stat Lab 05/04/20 21:55 Uncollected Pathology: Surgic al [PTH] Routine Pth 05/05/20 13:20 Received Labs from last 24 hours 05/06/20 05/06/20 05/06/20 10:48 06:19 00:17 POC Glucose 327 H 272 H 187 H Vancomycin Trough 05/05/20 05/05/20 05/05/20 23:21 20:23 16:35 POC Glucose 301 H 302 H Vancomycin Trough 15.9 H Vitals: Last Vital Signs Temp 97.7 F 05/06/20 12:00 Pulse 69 05/06/20 12:00 Resp 18 05/06/20 12:00 BP 161/75 05/06/20 12:00 Pulse Ox 96 05/06/20 12:00 Discharge Plan Discharge Patient Disposition: Home Condition: Stable Prescriptions: New Lantus Solostar U-100 Insulin 100 unit/mL (3 mL) insulin pen 10 unit SUBCUT QPM Qty: 3 RF: 0 Augmentin 875-125 mg tablet 1 tab PO Q12H Qty: 20 RF: 0 Continued aspirin 81 mg Tablet,Delayed Release (Dr/Ec) 81 mg PO QAM RF: 0 Cinnamon 500 mg Capsule 2,500 mg PO BID RF: 0 Vitamin D3 25 mcg (1,000 unit) Tablet 25 mcg PO QAM RF: 0 Vitamin B-12 1 tab PO QAM RF: 0 Vitamin C 1 tab PO QAM RF: 0 zinc 1 cap PO QAM RF: 0 Discontinued ibuprofen 200 mg Tablet 800 mg PO PRN RF: 0 turmeric 400 mg Capsule 400 mg PO QAM RF: 0 Discharge Orders: Discharge Order (Routine); Ordered 05/06/20 Ordered By: Buddy Chatman Referrals: Alphonse Sanon MD [Physician] - 05/19/20 9:15 am ([facility]OCK[facility] ASSEMBLY OPERATOR OFFICE in one week(NOT THE [facility])) Sreekanth Balbuena, CHUR[employer] HISTORY PROFESSOR-C [Primary Care Provider] - 05/16/20 1:40 pm Ender Rosales MD [Physician] - 1 week (Call on Saturday to make an appointment to be seen in 1 week.) Discharge Diet: Diabetic Discharge Activity: Limit activity as instructed Patient Instructions: Type 2 Diabetes, Diabetes and Diet, Amoxicillin/Clavulanate Potassium (By mouth), Insulin Glargine (Injection), Foot Care for Diabetics, How to Check Your Blood Sugar (GEN), Acute Wound Care (GEN), Toe Amputation (DC) Activity Restrictions/Additional Instructions: 1. Patient can shower after 48 hours from surgery PROVIDING THE A PLASTIC BAG COVERING THE RIGHT FOOT. 2. DAILY APPLICATION OF DRY GAUZE FOLLOWED BY ABD AND MAUREEN WRAP 3. NON WEIGHT BEARING RIGHT FOREFOOT 4. Do lift HEAVILY 5. Do not operate heavy machinery or drive while using pain medications. 6.Contact the office or return to the ER for worsening nausea vomiting fevers or chills, or noticing any redness around incision site or discharge. Diabetes Mellitus - Monitor blood sugar in am and three time per day with meals - If blood sugar aboove 200 persistently please contact your PCP Discharge Attestations Time Spent in Discharge Care*: greater than 30 min Specific Discharge Activities: educating patient, discussing with pcp/other providers ( Discussed with general surgery and clear discharge), discussing with supportive employment case manager/social workers/dc planners, documenting/other paperwork and evaluating patient/reviewing data Status at Discharge: Cognitive status at discharge: cognitively intact , Behavioral status at discharge: cooperative , Functional status at discharge: other ( now weight-bearing boot was prescribed) Overall status at discharge: patient is back to baseline Quality Metrics Clinical Quality Measures During this hospital stay, did patient experience: None Coding Level of Care Code Acute Fiberglass Insulation Installer for Chg Fwd Diagnoses Abscess of second toe of right foot L02.611
--- NOTE | 2020-05-06 14:17 | PC.NURSE ---
discharge instructions provided, verbalized understanding and denies further questions or concerns.
[2020-05-06 15:18] VITALS: BP 161/75; PULSE 69; RESP 18; TEMP 36.5; O2SAT 96
== END 2020-05-06 15:11 | disposition home or self-care (01) | DRG 616 ==
LOC: ER 19:34 → MEDSURG 20:04
PROVIDERS: Internal Medicine; Physician Assistant; Surgery; Admitting Provider Internal Medicine; Emergency Provider Family Medicine; PCP Nurse Practitioner; Visit Provider Hospitalist
PROC: 0Y6R0Z1 Detachment at Right 2nd Toe, High, Open Approach (ICD-10-PCS; principal; 2020-05-05 11:25)
DX: E11.69 Type 2 diabetes mellitus with other specified complication (principal); A48.0 Gas gangrene; M86.171 Other acute osteomyelitis, right ankle and foot; E11.52 Type 2 diabetes mellitus with diabetic peripheral angiopathy with gangrene; T38.3X6A Underdosing of insulin and oral hypoglycemic [antidiabetic] drugs, initial encounter; Z91.128 Patient's intentional underdosing of medication regimen for other reason; Z89.421 Acquired absence of other right toe(s); L03.031 Cellulitis of right toe; F10.21 Alcohol dependence, in remission; E11.621 Type 2 diabetes mellitus with foot ulcer
CPT/HCPCS: 10160; 36415; 36416; 71045; 73630; 73701; 80048; 80053; 80061; 80202; 81003; 82962; 83036; 83605; 85025; 85651; 86140; 87040; 87070; 87077; 87186; 88305; 93005; 96365; 96367; 96372; 97161; 97760; 99285; J1815 ×2; J1885; J2250; J2543; J2704; J3010; J3370; J3490; J7030; J7050; Q9967

== ENCOUNTER → 2020-05-19 09:00 | Outpatient (BNVA) | payer MEDICARE, SELFPAY | PROVIDERS: PCP Nurse Practitioner; Visit Provider Internal Medicine | DX: E11.621 Type 2 diabetes mellitus with foot ulcer (principal); L97.509 Non-pressure chronic ulcer of other part of unspecified foot with unspecified severity; E11.65 Type 2 diabetes mellitus with hyperglycemia; E78.5 Hyperlipidemia, unspecified; M86.9 Osteomyelitis, unspecified; S98.139A Complete traumatic amputation of one unspecified lesser toe, initial encounter | CPT/HCPCS: 99204 ==

== ENCOUNTER 2020-07-01 09:40 | Outpatient (CLI) | payer MEDICARE, SELFPAY | END 2020-07-01 09:41 | disposition home or self-care (01) | LOC: WOUND 09:42 | PROVIDERS: PCP Nurse Practitioner; Visit Provider Surgery | DX: E11.621 Type 2 diabetes mellitus with foot ulcer (principal); L97.512 Non-pressure chronic ulcer of other part of right foot with fat layer exposed ==

== ENCOUNTER 2020-07-08 09:35 | Outpatient (CLI) | payer MEDICARE, SELFPAY | END 2020-07-08 09:36 | disposition home or self-care (01) | LOC: WOUND 09:37 | PROVIDERS: PCP Nurse Practitioner; Visit Provider Nurse Practitioner Family | DX: E11.621 Type 2 diabetes mellitus with foot ulcer (principal); L97.512 Non-pressure chronic ulcer of other part of right foot with fat layer exposed ==

== ENCOUNTER → 2021-03-21 10:09 | Outpatient (BNVA) | payer MEDICARE, SELFPAY | PROVIDERS: PCP Nurse Practitioner; Visit Provider Nurse Practitioner Family | DX: Z20.822 Contact with and (suspected) exposure to COVID-19 (principal) | CPT/HCPCS: 87635 ==

== ENCOUNTER 2021-03-24 08:47 | Outpatient (CLI) | payer MEDICARE, SELFPAY ==
[2021-03-24 08:45] VITALS: BP 158/82; PULSE 78; RESP 18; TEMP 36.9; O2SAT 97; BMI 27.7
[2021-03-24 09:26] VITALS: BP 142/87; PULSE 73; RESP 18; TEMP 36.9; O2SAT 96
[2021-03-24 10:22] VITALS: BP 136/82; PULSE 74; RESP 18; TEMP 36.8; O2SAT 96
== END 2021-03-24 08:48 | disposition home or self-care (01) ==
LOC: OPS 08:49
PROVIDERS: PCP Nurse Practitioner; Visit Provider Nurse Practitioner Family
DX: U07.1 COVID-19 (principal)
CPT/HCPCS: 96365

== ENCOUNTER → 2021-11-02 13:27 | Outpatient (BNVA) | payer MEDICARE, SELFPAY | PROVIDERS: Visit Provider Internal Medicine | DX: E11.65 Type 2 diabetes mellitus with hyperglycemia (principal); E11.621 Type 2 diabetes mellitus with foot ulcer; E78.5 Hyperlipidemia, unspecified; L97.529 Non-pressure chronic ulcer of other part of left foot with unspecified severity; S98.139A Complete traumatic amputation of one unspecified lesser toe, initial encounter; L03.032 Cellulitis of left toe; Z79.4 Long term (current) use of insulin | CPT/HCPCS: 99215 ==

== ENCOUNTER 2021-11-02 14:54 | Emergency (ER) | payer MEDICARE, SELFPAY ==
[2021-11-02 15:29] VITALS: BP 173/86; PULSE 83; RESP 16; TEMP 37.3; O2SAT 97; BMI 27.6
--- NOTE | 2021-11-02 16:38 | XRR_ITS ---
PROCEDURE INFORMATION: Exam: XR Left Foot Exam date and time: 11/02/2021 6:24 PM Age: 61 years old Clinical indication: Condition or disease; Other: Ulcer TECHNIQUE: Imaging protocol: Radiologic exam of the Left foot. Views: 3 or more views. COMPARISON: No relevant prior studies available. 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 Soft tissues: Normal. XR/XR foot LT min 3V* [id number] IMPRESSION: 1. Negative for acute bony abnormality. 2. 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
--- NOTE | 2021-11-02 18:20 | ED_ITS ---
HPI - Extremity Problem General: Chief complaint: Extremity Problem,Nontraumatic Stated complaint: infection on left toe Time Seen by Provider: 11/02/21 18:08 Source: patient Mode of arrival: ambulatory Limitations: no limitations History of Present Illness: 61-year-old male who has a history of a diabetes and states that he noticed a wound to his left great toe roughly 4 to 5 days ago an area where he peeled off skin he has had some erythema to the toe as well. States he has follow-up with podiatry next week but he saw his docket clerk today who was concerned. He denies any pain but does have some nephropathy. He has had low-grade fevers denies any drainage. Associated symptoms: Deny chest pain or fever(s) Review of Systems Const: Denies: fever(s), chills, body aches or change in appetite Eyes: Denies: blurry vision or eye discomfort ENMT: Denies: throat pain or dental pain Card: Denies: chest pain Resp: Denies: dyspnea GI: Denies: abdominal pain, nausea, vomiting or diarrhea : Denies: dysuria Musc: Reports: extremity pain Skin/Breast: Reports: erythema Neuro: Denies: headache(s) Psych: Denies: depression Laureano/Lymph: Denies: easy bruising All/Imm: Denies: urticaria PFSH ED PFSH: Medical History Amputation toe Right toe 2016 through level of [place] tarsal phalangeal joint Diabetic foot ulcer Hx of medication noncompliance Peripheral neuropathy Type 2 diabetes mellitus Surgical History H/O hand surgery H/O knee surgery H/O neck surgery Family History Other Diabetes Hypertension Social History Smoking and tobacco status: never smoked Alcohol intake: former Lives independently: Yes Housing: House Physical Exam Const: COMMON NORMALS: no acute distress, patient oriented x3 and healthy appearing HENMT: COMMON NORMALS: normocephalic and atraumatic HEAD & SCALP: normocephalic and atraumatic Eye: COMMON NORMALS: Equal, round and reactive pupils present and EOMs intact bilaterally PUPIL: Yes Equal, round and reactive pupils present Neck/C-Spine: COMMON NORMALS: full ROM and supple Chest: COMMONS NORMALS: normal inspection of the chest and normal palpation of entire chest wall Resp: COMMON NORMALS: normal respiratory effort, No retractions, No use of accessory muscles and clear to auscultation bilaterally AUSCULTATION: clear to auscultation bilaterally Cardio: COMMON NORMALS: regular rate, regular rhythm and No murmurs present (Cardio) RATE: regular rate RHYTHM: regular rhythm GI: COMMON NORMALS: Normal to inspection, nondistended, normoactive bowel sounds present, Soft to palpation, non-tender and no masses PALPATION: Yes Soft to palpation Extremity: COMMON NORMALS: full ROM NARRATIVE EXTREMITY EXAM: Erythema noted to left great toe does have a small ulcer roughly dime size no drainage at this time Neuro: COMMON NORMALS: patient oriented x3, moves all extremities and no focal motor deficits Psych: COMMON NORMALS: mental status grossly normal, Normal thought process present and cooperative THOUGHT PROCESS: Normal thought process present Skin: COMMON NORMALS: no rashes or lesions noted and no wounds GENERAL SKIN EXAM: no rashes or lesions noted Course Vital Signs: Vital signs: Vital Signs Temperature 99.2 F 11/02/21 15:29 Pulse Rate 83 11/02/21 15:29 Respiratory Rate 16 11/02/21 15:29 Blood Pressure 173/86 11/02/21 15:29 Pulse Oximetry 97 11/02/21 15:29 MDM - Extremity (Nontraumatic) Medical Decision Making Patient presents with a diabetic foot ulcer with mild cellulitis his x-ray shows no osteomyelitis White count is normal we will start patient on Bactrim he has follow-up with podiatry next week already he is to follow-up as scheduled return if worsening. Lab Data : 11/02/21 18:22 11/02/21 18:22 Radiology Impressions Foot X-Ray 11/02/21 16:38 IMPRESSION: 1. Negative for acute bony abnormality. 2. 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 Laboratory Results WBC 11.2 10^3/uL (4.0-10.0) H 11/02/21 18:22 RBC 4.77 10^6/uL (4.1-5.3) 11/02/21 18:22 Hgb 13.9 g/dL (11.7-16.6) 11/02/21 18: Hct 42.4 % (42.0-52.0) 11/02/21: MCV 88.9 fl (80-94) 11/02/21 18: MCH 29.1 pg (28.0-34.0) 11/02/21 18: MCHC 32.8 g/dL (30.0-36.0) 11/02/21: RDW 11.4 % (12.1-15.1) L 11/02/21 18: Plt Count 246 10^3/cmm (130-400) 11/02/21: MPV 9.3 fL (7.4-10.4) 11/02/21 18: Neut % (Auto) 70.7 % 11/02/21 18: Lymph % (Auto) 14.6 % 11/02/21 18: Villalba % (Auto) 13.5 % 11/02/21 18: Eos % (Auto) 0.5 % 11/02/21 18: Baso % (Auto) 0.3 % 11/02/21 18: Neut # (Auto) 7.91 10^3/uL (1.8-7.7) H 11/02/21: Lymph # (Auto) 1.6 10^3/uL (0.8-4.8) 11/02/21 18: Villalba # (Auto) 1.5 10^3/uL (0.2-0.9) H 11/02/21: Eos # (Auto) 0.1 10^3/uL (0.0-0.8) 11/02/21 18: Baso # (Auto) 0.0 10^3/uL (0.0-0.1) 11/02/21: Nucleated RBC % (auto) 0 % 11/02/21: Nucleated RBCs # 0.0 /100WBC 11/02/21 18:22 Sodium 135 mmol/L (136-145) L 11/02/21 18: Potassium 4.4 mmol/L (3.5-5.1) 11/02/21 18:22 Chloride 98 mmol/L (98-107) 11/02/21 18:22 Carbon Dioxide 24 mmol/L (22-29) 11/02/21 18:22 Anion Gap 17.4 (5-19) 11/02/21 18:22 BUN 16 mg/dL (8-23) 11/02/21 18:22 Creatinine 0.8 mg/dL (0.7-1.2) 11/02/21 18:22 GFR Calculation 97.6 mL/min (90-130) 11/02/21 18:22 Glucose 120 mg/dL (65-115) H 11/02/21 18:22 Calculated Osmolality 282 mOsm/kg (285-295) L 11/02/21 18:22 Calcium 9.4 mg/dL (8.5-10.5) 11/02/21 18:22 Discharge Plan Discharge Patient Disposition: Home Clinical Impression: Diabetic foot ulcer Qualifiers: Diabetic foot ulcer location: toe Diabetes mellitus type: other specified (including NEELA) Laterality: left Non-pressure ulcer stage: unspecified non- pressure ulcer stage Qualified Code(s): E13.621 - Other specified diabetes mellitus with foot ulcer Cellulitis Qualifiers: Site of cellulitis: extremity Site of cellulitis of extremity: toe Laterality: left Qualified Code(s): L03.032 - Cellulitis of left toe Condition: Stable Prescriptions: New Bactrim DS 800-160 mg tablet 1 tab PO BID 10 Days Qty: 20 0RF No Action magnesium 250 mg tablet 250 mg PO DAILY budesonide-formoterol [Symbicort] 160-4.5 mcg/actuation HFA aerosol inhaler 2 puff inhalation BID 14 Days Qty: 10.2 0RF Rx Instructions: 340 B aspirin 81 mg Tablet,Delayed Release (Dr/Ec) 81 mg PO QAM Cinnamon 500 mg Capsule 2,500 mg PO BID Vitamin D3 25 mcg (1,000 unit) Tablet 25 mcg PO QAM Vitamin B-12 1 tab PO QAM Vitamin C 1 tab PO QAM zinc 1 cap PO QAM Discharge Orders: Discharge ED (Routine); Ordered 11/02/21 Ordered By: Marina Ron Discharge Diet: Advance as tolerated Discharge Activity: Resume usual activity Patient Instructions: Diabetic Foot Ulcers (ED) Coding Level of Care Code ED Cyber Defense Analyst for Chg Fwd Exam Comprehensive
[2021-11-02 18:37] LABS: Basophils % 0.3 %; Eosinophils # 0.1 10^3/uL (0.0-0.8); Eosinophils % 0.5 %; Hematocrit 42.4 % (42.0-52.0); Hemoglobin 13.9 g/dL (11.7-16.6); Lymphocytes # 1.6 10^3/uL (0.8-4.8); Lymphocytes % 14.6 %; Mean Corpuscular HGB Conc 32.8 g/dL (30.0-36.0); Mean Corpuscular Hemoglobin 29.1 pg (28.0-34.0); Mean Corpuscular Volume 88.9 fl (80-94); Mean Platelet Volume 9.3 fL (7.4-10.4); Monocytes # 1.5 10^3/uL (0.2-0.9); Monocytes % 13.5 %; Neutrophils # 7.91 10^3/uL (1.8-7.7); Neutrophils % 70.7 %; Nucleated Red Blood Cells % 0 %; Platelet Count 246 10^3/cmm (130-400); Red Blood Count 4.77 10^6/uL (4.1-5.3); Red Cell Distribution Width 11.4 % (12.1-15.1); White Blood Count 11.2 10^3/uL (4.0-10.0)
[2021-11-02] MEDS: vancomycin 1,000 MG in sodium chloride 0.9% 250 ML 250 MG IV (18:54)
[2021-11-02 19:08] LABS: Blood Urea Nitrogen 16 mg/dL (8-23); Calcium 9.4 mg/dL (8.5-10.5); Carbon Dioxide 24 mmol/L (22-29); Chloride 98 mmol/L (98-107); Glomerular Filtration Rate 97.6 mL/min (90-130); Glucose 120 mg/dL (65-115); Osmolality Calculated 282 mOsm/kg (285-295); Sodium 135 mmol/L (136-145)
[2021-11-02 19:10] LABS: Anion Gap 17.4 (5-19); Potassium 4.4 mmol/L (3.5-5.1)
[2021-11-02 19:42] VITALS: BP 146/79; PULSE 69; RESP 16; O2SAT 99
[2021-11-02 20:02] VITALS: BP 146/79; PULSE 69; RESP 16; O2SAT 99
== END 2021-11-02 20:04 | disposition home or self-care (01) ==
PROVIDERS: Family Medicine; Emergency Provider Emergency Medicine
DX: L03.032 Cellulitis of left toe (principal); E11.621 Type 2 diabetes mellitus with foot ulcer; L97.529 Non-pressure chronic ulcer of other part of left foot with unspecified severity; Z89.421 Acquired absence of other right toe(s); Z79.82 Long term (current) use of aspirin
CPT/HCPCS: 73630; 80048; 85025; 96365; 99215; 99284; J3370; J7050

== ENCOUNTER 2021-11-04 08:59 | Inpatient (IN) | payer MEDICARE, SELFPAY ==
[2021-11-04] VITALS (7 sets, daily range): BP systolic 144–178; BP diastolic 55–83; PULSE 63–87; RESP 15–19; TEMP 36.6–37.2; O2SAT 93–98; BMI 27.6
--- NOTE | 2021-11-04 09:40 | XRR_ITS ---
PROCEDURE INFORMATION: Exam: XR Left Foot Exam date and time: 11/04/2021 9:48 AM Age: 61 years old Clinical indication: Swelling, leg or foot; Additional info: Diabetic foot ulcer big toe TECHNIQUE: Imaging protocol: Radiologic exam of the Left foot. Views: 3 or more views. AP Oblique Lateral COMPARISON: CR (LOW EXM, ) 11/02/2021 6:24 PM FINDINGS: Bones/joints: There is normal alignment without fractures or dislocations. Unchanged moderate toe interphalangeal degenerative changes are seen, involving the 1st through 3rd toes. [id number]-[id number]-[id number] mid tarsal degenerative changes are seen with small degenerative osteophytes. There are no osseous erosive changes seen. Soft tissues: There is no radiographic soft tissue swelling. There are no radiopaque foreign bodies. There is no soft tissue gas. Notes: If there is further concern, recommend follow-up radiographs, three-phase bone scan or MRI for complete assessment. XR/XR foot LT min 3V* [id number] IMPRESSION: No fractures or dislocation of the left foot. Degenerative changes, as noted above. No osseous erosive changes.
--- NOTE | 2021-11-04 10:12 | ED_ITS ---
HPI - Skin/Abscess/Foreign Bdy General: Chief complaint: Skin/Abscess/Foreign Body Stated complaint: Right Toe abnormality Time Seen by Provider: 11/04/21 09:29 Source: patient Mode of arrival: ambulatory History of Present Illness: 61-year-old male presents emergency room with complaint of left great toe infection. He was here 2 days ago and started on Bactrim. He is noticed malodorous discharge from the wound when he went to change the dressing today he has been taking the Bactrim. Patient is an insulin controlled diabetic. He does not smoke. He has no known history of peripheral artery disease. No fever sweats or chills. MD complaint: abscess/boil Onset (ago): day(s) Tetanus up to date: yes Location: L foot (Left great toe) Quality: aching Relieving factors: none Exacerbating factors: none Context: other (Diabetic toe ulcer) Associated symptoms: Deny arthralgias, chills, cough, fever(s), itching, myalgias, nausea, rigidity, short of breath, vomiting or other Treatments prior to arrival: none Review of Systems Const: Denies: fever(s), chills, fatigue or malaise ENMT: Denies: throat pain, ear or mastoid pain, nasal discharge or nasal congestion Card: Denies: chest pain, palpitations, irregular heart rhythm, edema, dyspnea on exertion or orthopnea Resp: Denies: dyspnea, productive cough or non-productive cough GI: Denies: nausea or vomiting : Denies: flank pain, difficulty urinating, dysuria, urinary frequency or urinary urgency Skin/Breast: Denies: rash or pruritus PFSH ED PFSH: Medical History Amputation toe Right toe 2016 through level of [place] tarsal phalangeal joint Diabetic foot ulcer Hx of medication noncompliance Peripheral neuropathy Type 2 diabetes mellitus Surgical History H/O hand surgery H/O knee surgery H/O neck surgery History of amputation Family History Other Diabetes Hypertension Social History Smoking and tobacco status: never smoked Alcohol intake: former Lives independently: Yes Housing: House Physical Exam Const: GENERAL APPEARANCE: cooperative and comfortable ORIENTATION/CONSCIOUSNESS: Yes awake, Yes oriented to person, Yes oriented to place and Yes oriented to time HENMT: COMMON NORMALS: normocephalic, atraumatic, hearing grossly normal bilaterally, external ears normal, EAC's normal, TM's normal bilaterally, Normal nasal mucous membranes and turbinates present, moist oral mucous membranes and oropharynx normal HEAD & SCALP: normocephalic and atraumatic NOSE: Normal nasal mucous membranes and turbinates present EXTERNAL EAR: Yes external ears normal EXTERNAL AUDITORY CANAL: EAC's normal TYMPANIC MEMBRANE: TM's normal bilaterally Eye: COMMON NORMALS: Equal, round and reactive pupils present, EOMs intact bilaterally, conjunctivae normal and no scleral icterus CONJUNCTIVA: Yes conjunctivae normal PUPIL: Yes Equal, round and reactive pupils present Neck/C-Spine: COMMON NORMALS: full ROM, no lymphadenopathy, supple and no JVD Lymph: LYMPHATIC: no lymphadenopathy noted and no lymphedema noted Resp: COMMON NORMALS: normal respiratory effort, No retractions, No use of accessory muscles and clear to auscultation bilaterally AUSCULTATION: clear to auscultation bilaterally Cardio: COMMON NORMALS: no JVD, regular rate, regular rhythm and No murmurs present (Cardio) RATE: regular rate RHYTHM: regular rhythm GI: COMMON NORMALS: Soft to palpation and No hepatosplenomegaly present AUSCULTATION: Yes normoactive bowel sounds PALPATION: Yes Soft to palpation, No Tenderness to palpation present (GI), No Guarding due to palpation present (GI) and Yes No hepatosplenomegaly present Extremity: COMMON NORMALS: normal to inspection, capillary refill normal, no clubbing, cyanosis or edema, no calf tenderness and no pedal edema OTHER: Left great toe discolored with a central ulcer surrounding skin blanchable except there may be an underlying abscess. No exposed bone x-ray does not show any tissue gas. There is some proximal erythema and lymphangitic streaking. Neuro: SENSORIUM/ORIENTATION: Yes oriented to person, Yes oriented to place and Yes oriented to time Skin: COMMON NORMALS: no rashes or lesions noted GENERAL SKIN EXAM: no rashes or lesions noted Course Vital Signs: Vital signs: Vital Signs Temperature 98.2 F 08/30/22 10:40 Pulse Rate 80 11/07/21 10:40 Respiratory Rate 17 11/07/21 10:40 Blood Pressure 158/79 11/07/21 10:40 Pulse Oximetry 98 11/07/21 10:40 Oxygen Delivery Me thod 11/07/21 10:40 Oxygen Flow Rate 6 11/07/21 08:08 MDM - Skin/Abscess/Foreign Bdy Medicial Decision Making Admitted for cellulitis. Suspect osteomyelitis left great toe will need aggressive antibiotics vascular evaluation consultation with orthopedics discussed with hospitalist orders written Medical Records I reviewed the patient's medical records. Lab Data I reviewed the patient's lab results. : 11/07/21 01:51 11/07/21 01:51 Radiology Impressions Foot X-Ray 11/04/21 09:40 IMPRESSION: No fractures or dislocation of the left foot. Degenerative changes, as noted above. No osseous erosive changes. Foot CT 11/04/21 10:20 IMPRESSION: Findings are consistent with acute osteomyelitis with pathologic fracture involving the plantar aspect of the 1st distal phalanx. No abscess or drainable fluid collection identified. Duplex Scan Lower Extremity Artery 11/04/21 12:40 IMPRESSION: No significant stenosis or occlusion. Laboratory Results WBC 11.2 10^3/uL (4.0-10.0) H 11/04/21 10:00 RBC 4.70 10^6/uL (4.1-5.3) 11/04/21 10:00 Hgb 13.7 g/dL (11.7-16.6) 11/04/21 10:00 Hct 41.6 % (42.0-52.0) L 11/04/21 10:00 MCV 88.5 fl (80-94) 11/04/21 10:00 MCH 29.1 pg (28.0-34.0) 11/04/21 10:00 MCHC 32.9 g/dL (30.0-36.0) 11/04/21 10:00 RDW 11.3 % (12.1-15.1) L 11/04/21 10:00 Plt Count 272 10^3/cmm (130-400) 11/04/21 10:00 MPV 9.3 fL (7.4-10.4) 11/04/21 10:00 Neut % (Auto) 75.8 % 11/04/21 10:00 Lymph % (Auto) 11.8 % 11/04/21 10:00 Bowie % (Auto) 11.1 % 11/04/21 10:00 Eos % (Auto) 0.7 % 11/04/21 10:00 Baso % (Auto) 0.2 % 11/04/21 10:00 Neut # (Auto) 8.51 10^3/uL (1.8-7.7) H 11/04/21 10:00 Lymph # (Auto) 1.3 10^3/uL (0.8-4.8) 11/04/21 10:00 Bowie # (Auto) 1.2 10^3/uL (0.2-0.9) H 11/04/21 10:00 Eos # (Auto) 0.1 10^3/uL (0.0-0.8) 11/04/21 10:00 Baso # (Auto) 0.0 10^3/uL (0.0-0.1) 11/04/21 10:00 Nucleated RBC % (auto) 0 % 11/04/21 10:00 Nucleated RBCs # 0.0 /100WBC 11/04/21 10:00 ESR 27 mm/hr (0-10) H 11/04/21 10:00 Sodium 137 mmol/L (136-145) 11/04/21 10:00 Potassium 5.7 mmol/L (3.5-5.1) H 11/04/21 10:00 Chloride 103 mmol/L (98-107) 11/04/21 10:00 Carbon Dioxide 23 mmol/L (22-29) 11/04/21 10:00 Anion Gap 16.2 (5-19) 11/04/21 10:00 BUN 20 mg/dL (8-23) 11/04/21 10:00 Creatinine 0.9 mg/dL (0.7-1.2) 11/04/21 10:00 GFR Calculation 85.2 mL/min (90-130) L 11/04/21 10:00 Glucose 170 mg/dL (65-115) H 11/04/21 10:00 Calculated Osmolality 291 mOsm/kg (285-295) 11/04/21 10:00 Calcium 9.1 mg/dL (8.5-10.5) 11/04/21 10:00 Iron 19 ug/dL (59-158) L 11/04/21 10:19 TIBC 251 mcg/dl 11/04/21 10:19 % Saturation 7.5 % (20-50) L 11/04/21 10:19 Unsat Iron Binding 232 ug/dL (112-347) 11/04/21 10:19 C-Reactive Protein 54.1 mg/L (0.0-4.9) H 11/04/21 10:19 Vitamin B12 449 pg/mL (232-1245) 11/04/21 10:19 Procalcitonin 0.06 ng/mL (0-0.5) 11/04/21 10:19 TSH 2.21 uIU/mL (0.27-4.20) 11/04/21 10:19 Discharge Plan Discharge Patient Disposition: Admitted As Inpatient Admit Provider: Savage Quezada Clinical Impression: Cellulitis, Abscess of skin or subcutaneous tissue, Uncontrolled diabetes mellitus Condition: Stable Discharge Diet: Advance as tolerated Discharge Activity: Limit activity as instructed Coding Level of Care Code ED Breakfast Bar Attendant for Marva Orr
--- NOTE | 2021-11-04 10:20 | CTR_ITS ---
PROCEDURE INFORMATION: Exam: CT Left Lower Extremity With Contrast, Foot Exam date and time: 11/04/2021 10:55 AM Age: 61 years old Clinical indication: Other: Non healing ulcer lt great toe; Additional info: Diabetic toe ulcer - L great toe TECHNIQUE: Imaging protocol: CT of the Left lower extremity with intravenous contrast was performed. Exam focused on the foot. Radiation optimization: All CT scans at this facility use at least one of these dose optimization techniques: automated exposure control; mA and/or kV adjustment per patient size (includes targeted exams where dose is matched to clinical indication); or iterative reconstruction. Contrast material: OMNI 350; Contrast volume: 80 ml; Contrast route: INTRAVENOUS (IV); COMPARISON: CR (LOW EXM, ) 11/04/2021 9:48 AM RADIATION DOSE METRICS: Total DLP (mGy-cm): 159.19 FINDINGS: Bones/joints: There is erosive change along the plantar aspect of the 1st distal phalanx with what appears to be a pathologic fracture. Findings are consistent with acute osteomyelitis. Soft tissues: There is subcutaneous edema and skin thickening involving the 1st digit. No definite abscess or drainable fluid collection is seen. CT/CT foot LT w con [id number] IMPRESSION: Findings are consistent with acute osteomyelitis with pathologic fracture involving the plantar aspect of the 1st distal phalanx. No abscess or drainable fluid collection identified.
[2021-11-04 10:21] LABS: Basophils % 0.2 %; Eosinophils # 0.1 10^3/uL (0.0-0.8); Eosinophils % 0.7 %; Hematocrit 41.6 % (42.0-52.0); Hemoglobin 13.7 g/dL (11.7-16.6); Lymphocytes # 1.3 10^3/uL (0.8-4.8); Lymphocytes % 11.8 %; Mean Corpuscular HGB Conc 32.9 g/dL (30.0-36.0); Mean Corpuscular Hemoglobin 29.1 pg (28.0-34.0); Mean Corpuscular Volume 88.5 fl (80-94); Mean Platelet Volume 9.3 fL (7.4-10.4); Monocytes # 1.2 10^3/uL (0.2-0.9); Monocytes % 11.1 %; Neutrophils # 8.51 10^3/uL (1.8-7.7); Neutrophils % 75.8 %; Nucleated Red Blood Cells % 0 %; Platelet Count 272 10^3/cmm (130-400); Red Cell Distribution Width 11.3 % (12.1-15.1); White Blood Count 11.2 10^3/uL (4.0-10.0)
[2021-11-04 10:34] LABS: Blood Urea Nitrogen 20 mg/dL (8-23); Calcium 9.1 mg/dL (8.5-10.5); Carbon Dioxide 23 mmol/L (22-29); Chloride 103 mmol/L (98-107); Glomerular Filtration Rate 85.2 mL/min (90-130); Glucose 170 mg/dL (65-115); Osmolality Calculated 291 mOsm/kg (285-295); Sodium 137 mmol/L (136-145)
[2021-11-04 10:41] LABS: Potassium 5.7 mmol/L (3.5-5.1)
[2021-11-04] MEDS: vancomycin 1,000 MG in sodium chloride 0.9% 250 ML 250 MG IV (10:44)
[2021-11-04 10:59] LABS: Anion Gap 16.2 (5-19)
[2021-11-04] MEDS: iohexol 350 mg/mL 100 mL Btl IV (10:59)
[2021-11-04 11:11] LABS: C Reactive Protein 54.1 mg/L (0.0-4.9)
[2021-11-04 12:22] LABS: Glucose Point of Care 132 mg/dL (70-110)
--- NOTE | 2021-11-04 12:30 | PC.NURSE ---
Patient arrived from ER wia wheelchair. Patient is alert and oriented, up ad bri. Patient has been educated on safety guidelines and is aware of call carrizales use. Patient VS are stable. Pulses are deplorable bilaterally.
--- NOTE | 2021-11-04 12:40 | USR_ITS ---
PROCEDURE INFORMATION: Exam: US Duplex Lower Extremity Arteries Exam date and time: 11/04/2021 1:29 PM Age: 61 years old Clinical indication: Pain; Toes; Left; Additional info: Pad TECHNIQUE: Imaging protocol: Real-time ultrasound scan of the arteries of the bilateral lower extremities with 2-D mcclure scale, color Doppler flow and spectral waveform analysis. Images documented and saved. COMPARISON: CT foot RT w con [id number] 11/04/2021 10:55 AM FINDINGS: Diffuse intimal thickening and other sclerotic changes with scattered small plaques are noted bilaterally. There is a small partially calcified plaque eccentric plaque in the right common femoral artery measuring 10 mm in length and 2 mm in thickness. No other obvious large focal plaques are identified. Right common femoral artery: No occlusion or significant stenosis. Normal waveform. Right superficial femoral artery: No occlusion or significant stenosis. Normal waveform. Right popliteal artery: No occlusion or significant stenosis. Normal waveform. Right calf/foot arteries: No occlusion or significant stenosis in the visualized arteries. Normal waveforms. Dorsalis pedis artery is patent. The peroneal branch was not assessed. Left common femoral artery: No occlusion or significant stenosis. Normal waveform. Left superficial femoral artery: No occlusion or significant stenosis. Normal waveform. Left popliteal artery: No occlusion or significant stenosis. Normal waveform. Left calf/foot arteries: No occlusion or significant stenosis in the visualized arteries. Monophasic waveforms. Dorsalis pedis artery is patent. The peroneal branch was not assessed. US/[place] [id number] IMPRESSION: No significant stenosis or occlusion.
--- NOTE | 2021-11-04 12:42 | USCV_ITS ---
Evan Iverson Age: 61 Gender: M : 1960 Exam Date: 11/04/2021 13:47 Ordering Phys: Savage Quezada MD Technologist: JAYCEE [place]am Location: [facility] [place] Indication: CAD BP: 169 / 83 HR: 62 Rhythm: Sinus Technical Quality: Adequate MEASUREMENTS (Male / Female) Normal Values 2D ECHO LV Diastolic Diameter PLAX 4.8 cm 4.2 - 5.9 / 3.9 - 5.3 cm LV Systolic Diameter PLAX 3.3 cm IVS Diastolic Thickness 1.3 cm 0.6 - 1.0 / 0.6 - 0.9 cm IVS Systolic Thickness 2.6 cm LVPW Diastolic Thickness 1.6 cm 0.6 - 1.0 / 0.6 - 0.9 cm LVPW Systolic Thickness 2.4 cm LVOT Diameter 2.0 cm LV Ejection Fraction 2D Teich 59.4 % LV Ejection Fraction MOD 2C 55.6 % LV Ejection Fraction 2C AL 54.3 % LA Diameter 3.5 cm LA Width 3.5 cm LA Height 5.0 cm RA Width 4.3 cm RA Height 4.4 cm Aorta at Sinotubular Diameter 2.3 cm IVC Diameter 1.8 cm M-MODE Aortic Annulus Diameter 3.3 cm LA Ao Ratio MM 1.1 MV E Point Septal Separation 0.9 cm DOPPLER AV Peak Velocity 135.0 cm/s LVOT Peak Velocity 86.0 cm/s AV Area Cont Eq vti 2.1 cm squared AV Area Cont Eq pk 2.0 cm squared MV Peak Velocity 103.0 cm/s MV Area PHT 3.5 cm squared Mitral E to A Ratio 0.8 MV E' Velocity 43.5 cm/s Mitral E to MV E' Ratio 11.7 Mitral E to LV E' Lateral Ratio 10.8 Mitral E to LV E' Septal Ratio 12.9 TR Peak Velocity 231.5 cm/s TR Peak Gradient 21.4 mmHg TR Mean Velocity 180.3 cm/s TR Mean Gradient 14.1 mmHg TR Velocity Time Integral 71.4 cm TV Peak E Velocity 62.0 cm/s Right Atrial Pressure 3.0 mmHg Pulmonary Artery Systolic Pressu 24.4 mmHg PV Peak Velocity 90.0 cm/s RV Acceleration Time 0.1 s RV Ejection Time 0.3 s RV AcT/ET 0.4 FINDINGS Left Ventricle Normal left ventricular size, systolic function and wall thickness, with no regional wall motion abnormalities. Grade I/IV diastolic dysfunction (abnormal relaxation filling pattern), normal to mildly elevated filling pressures. Left ventricular ejection fraction is estimated at 60%. Right Ventricle Normal right ventricular size and systolic function. Normal right ventricular systolic pressure. Right Atrium The right atrium is normal in size. Left Atrium The left atrium is normal in size. Mitral Valve Structurally normal mitral valve without significant stenosis or prolapse. There is no mitral regurgitation. Aortic Valve Structurally normal aortic valve without significant sclerosis or stenosis. There is no aortic regurgitation. Tricuspid Valve Structurally normal tricuspid valve without significant stenosis or regurgitation. Pulmonary artery systolic pressure is normal. Pulmonic Valve Pulmonic valve not well visualized. Pericardium Normal pericardium without effusion. Aorta Normal ascending aorta dimension. IVC The inferior vena cava pulmonary and hepatic veins appear normal. CONCLUSIONS Normal left ventricular size, systolic function and wall thickness, with no regional wall motion abnormalities. Grade I/IV diastolic dysfunction (abnormal relaxation filling pattern), normal to mildly elevated filling pressures. Left ventricular ejection fraction is estimated at 60%. There are no prior echocardiogram studies to compare. Dr. Salbador Stewart MD (Electronically Signed) Final Date: 04 November 2021 22:16 S
[2021-11-04] MEDS: piperacillin-tazobactam 3.375 GM in sodium chloride 0.9% (plus) 50 ML IV ×2 (13:18→21:17)
[2021-11-04] MEDS: sodium chloride 0.9% 1,000 ML 50 ML IV (13:18)
[2021-11-04 13:32] LABS: Thyroid Stimulating Hormone 2.21 uIU/mL (0.27-4.20); Vitamin B12 449 pg/mL (232-1245)
[2021-11-04 14:02] LABS: Iron 19 ug/dL (59-158); Percent Saturation 7.5 % (20-50); Total Iron Binding Capacity 251 mcg/dl; Unsaturated Iron Binding 232 ug/dL (112-347)
[2021-11-04 14:08] LABS: Procalcitonin 0.06 ng/mL (0-0.5)
[2021-11-04 15:36] LABS: Add Urine Microscopic? NO; Charge for UA Resulting for Rev
--- NOTE | 2021-11-04 15:36 | PM.HP ---
Providers/Chief Complaint Admitting Physician: Savage Quezada MD Chief Complaint: Right Toe abnormality History of Present Illness Evan Iverson Jr is a 61 year old male with past medical history of type 2 diabetes mellitus, hyperlipidemia, amputation of second and third right toe because of osteomyelitis presents to the ER today because of discoloration and pain at the tip of left great toe. As per the patient it started with skin peeling off around 5 days ago which he cut with a pair of scissors. Because of discoloration and pain he presented the ER few days ago and he was sent home on oral Bactrim. He started taking the medication since last night and as it was not helping he presented to the ER. Blood work showed a white count of 11.2, hemoglobin 13.7, potassium of 5.7, creatinine 0.9, CRP of 54, CT foot as below. Review of Systems General: Reports: 10 or more systems reviewed and unremarkable except in HPI and below Const: Denies: fever(s), chills, body aches, change in appetite, change in weight, malaise, night sweats, diaphoresis, change in sleep pattern, daytime sleepiness or snoring Eyes: Denies: change in vision, blurry vision, photophobia, eye discomfort or eye discharge ENMT: Denies: throat pain, enlarged tonsils, hoarseness, mouth pain, oral sores, dry mouth, tinnitus, nasal congestion or post nasal drip Card: Denies: chest pain, palpitations, irregular heart rhythm, edema, swelling of feet/ankles, lightheadedness, syncope, pre-syncope, dyspnea on exertion, orthopnea, leg pain with exertion or acrocyanosis Resp: Denies: dyspnea, productive cough, non-productive cough, wheezing, stridor, pain on inspiration, change in phlegm color, hemoptysis or chest congestion GI: Denies: abdominal pain, nausea, vomiting, hematemesis, coffee ground emesis, dysphagia, heartburn, diarrhea, constipation, bloating, GI cramping, change in bowel habits, pain on defecation, hematochezia or melena : Denies: flank pain, difficulty urinating, dysuria, urinary frequency, urinary urgency, urinary hesitancy, urinary dribbling, difficulty starting urination, change in urine stream, nocturia or hematuria Musc: Denies: neck pain, back pain, extremity pain, joint pain, joint swelling, joint redness, joint stiffness or limited range of motion Neuro: Denies: headache(s), numbness in extremities, weakness in extremities, sensory changes, lack of coordination, difficulty walking, frequent falls, dizziness, vertigo, confusion, Slurred speech present, difficulty communicating thoughts or seizure-like activity Psych: Denies: anxiety, depression, mood swings, panic attacks, hopelessness or irritability Endo: Denies: polyuria, polydipsia, tired all the time, cold intolerance, excessive sweating, flushing or heat intolerance Laureano/Lymph: Denies: easy bruising or easy bleeding All/Imm: Denies: tongue swelling, facial swelling or acute wheezing Medications/Allergies Home Medications Medication Instructions Recorded Confirmed Last Taken Type aspirin 81 mg tablet,delayed 81 mg PO QAM 05/04/20 11/04/21 10/31/21 History release sulfamethoxazole 800 1 tab PO BID 10 days #20 tabs 11/02/21 11/04/21 11/03/21 Rx mg-trimethoprim 160 mg tablet (Bactrim DS) insulin glargine 100 unit/mL 36 unit SUBCUT BEDTIME 11/04/21 11/04/21 11/03/21 History subcutaneous solution (Lantus U-100 Insulin) Allergies Allergy/AdvReac Type Severity Reaction Status Date / Time No Known Allergies Allergy Verified 11/02/21 13:39 PFSH Acute PFSH: Medical History (Updated 11/04/21 @ 15:40 by Savage Quezada MD) Amputation toe Right toe 2015 through level of [place] tarsal phalangeal joint Diabetic foot ulcer Hx of medication noncompliance Peripheral neuropathy Type 2 diabetes mellitus Surgical History (Updated 11/04/21 @ 15:38 by Savage Quezada MD) H/O hand surgery H/O knee surgery H/O neck surgery History of amputation Family History Other Diabetes Hypertension Social History Smoking and tobacco status: never smoked Alcohol intake: former Lives independently: Yes Housing: House Vitals/I&O/Wt Last Vital Signs Temp 98.0 F 11/04/21 12:44 Pulse 68 11/04/21 14:26 Resp 16 11/04/21 14:26 BP 178/55 11/04/21 12:44 Pulse Ox 98 11/04/21 14:26 O2 Del Method 11/04/21 14:26 11/04/21 11/04/21 11/04/21 06:59 14:59 22:59 Intake Total 1000 / 1000 Balance 1000 / 1000 Weight last 48 hrs Weight 102.965 kg Physical Exam Narrative: General: No acute distress, AO x3 HEENT: PERRLA, pupils bilaterally equal and reactive Chest: Normal vesicular breath sounds, no added sounds, equal good air entry bilaterally CVS: S1-S2 regular, no murmurs, no tachycardia, no gallops, no rubs Abdomen: Soft, nontender, no organomegaly, bowel sounds present Neuro: No focal deficits, no facial deformity, AO x3, power 5/5 in all limbs Extremity: Second and third toe right foot, left great toe at the base of Blackish discoloration surrounded with under the skin collection of purulent discharge, fluctuant, tender Data : 11/04/21 10:00 11/04/21 10:00 Micro: Microbiology 11/04/21 10:25 Blood Culture - Preliminary Blood SPECIMEN COLLECTED 11/04/21 10:30 Blood Culture - Preliminary Blood SPECIMEN COLLECTED A&P Assessment and plan (1) Osteomyelitis of great toe of left foot: At the base of left great toe. CT foot done in the ER consistent with osteomyelitis. Stop Bactrim. IV vancomycin and Zosyn. Blood culture, MRSA swab, procalcitonin. Orthopedic consulted from the ER. Patient would most likely need amputation of the great toe. Patient pretty upset regarding possibility of amputation. Option discussed with patient whether amputation of the great toe versus deep debridement, OR cultures followed by 6 weeks of IV antibiotics after which also there is a high chance that he would need amputation with risk of spread of osteomyelitis proximally. Status: Acute (2) Diabetic foot ulcer: Status: Acute Qualifiers: Diabetes mellitus type: other specified (including NEELA) Diabetic foot ulcer location: toe Laterality: left Non-pressure ulcer stage: unspecified non-pressure ulcer stage Qualified Code(s): E13.621 - Other specified diabetes mellitus with foot ulcer; L97.529 - Non-pressure chronic ulcer of other part of left foot with unspecified severity (3) Uncontrolled diabetes mellitus: Check A1c. Continue with home dose of Lantus. Since sliding scale at low-dose protocol Status: Acute (4) Hyperlipidemia: Check lipid panel. Patient is not on statins at home. Status: Acute Plan High blood pressure: Goal blood pressure less than 140/90 mmHg. Does not have history of hypertension in the past. Will start on medications accordingly. Full code. Cardiac carb consistent diet. Insulin sliding scale. Famotidine for PUD prophylaxis. SCDs for DVT prophylaxis Attestations Medical Necessity Statement*: Admission for more than 2 midnights for management of osteomyelitis of left great toe in setting of uncontrolled diabetes mellitus Time Spent in Patient Care: Greater than 35 minutes Coding Level of Care Code Acute Reservation Clerk for [facility] Fwd Diagnoses Osteomyelitis of great toe of left foot M86.9 Diabetic foot ulcer E13.621; L97.529 Diabetes mellitus type: other specified (including NEELA) Diabetic foot ulcer location: toe Laterality: left Non-pressure ulcer stage: unspecified non-pressure ulcer stage Uncontrolled diabetes mellitus E11.65 Hyperlipidemia E78.5
[2021-11-04 16:03] LABS: Bilirubin Urine Neg (Negative); Blood Urine Neg (Negative); Glucose Urine UA Norm (Normal); Ketones Urine Negative (Negative); Leukocyte Esterase Urine Negative (Negative); Nitrate Urine Negative (Negative); Protein Urine Neg (Negative); Urine Appearance Clear (CLEAR); Urine Color Yellow (Yellow); Urobilinogen Urine Norm (Negative); pH Urine 6 (5-7)
[2021-11-04 16:09] LABS: Potassium, Radom Urine 21 mmol/L; Urine Random Chloride 99 mmol/L; Urine Random Sodium 104 mmol/L
[2021-11-04] MEDS: insulin regular-human 10 UNIT in SYRINGE 1 EACH IVP (16:19)
[2021-11-04] MEDS: dextrose 50% syringe 50 mL IVP (16:19)
--- NOTE | 2021-11-04 16:28 | PC.NURSE ---
pt wishes to keep wallet and car keys in bedside table
[2021-11-04 17:03] LABS: Glucose Point of Care 123 mg/dL (70-110)
[2021-11-04 17:10] LABS: Erythrocyte Sedimentation Rate 27 mm/hr (0-10)
[2021-11-04] MEDS: ferrous gluconate 324 mg Tablet PO (17:32)
[2021-11-04] MEDS: vancomycin 1,500 MG/300 ML PIGGYBACK 200 MG IV (17:32)
[2021-11-04] MEDS: docusate sodium 100 mg Capsule PO (17:32)
[2021-11-04] MEDS: famotidine 20 mg/2 mL INJ IVP (18:28)
[2021-11-04 20:16] LABS: Glucose Point of Care 117 mg/dL (70-110)
[2021-11-05] VITALS (10 sets, daily range): BP systolic 142–161; BP diastolic 70–88; PULSE 55–76; RESP 16–17; TEMP 36.4–36.7; O2SAT 96–99
[2021-11-05] MEDS: vancomycin 1,500 MG/300 ML PIGGYBACK 200 MG IV ×2 (04:11→17:58)
[2021-11-05] MEDS: piperacillin-tazobactam 3.375 GM in sodium chloride 0.9% (plus) 50 ML IV ×3 (04:46→20:19)
[2021-11-05 05:18] LABS: Basophils % 0.5 %; Eosinophils # 0.2 10^3/uL (0.0-0.8); Eosinophils % 1.7 %; Hematocrit 39.3 % (42.0-52.0); Lymphocytes # 1.8 10^3/uL (0.8-4.8); Lymphocytes % 20.7 %; Mean Corpuscular HGB Conc 33.1 g/dL (30.0-36.0); Mean Corpuscular Hemoglobin 29.1 pg (28.0-34.0); Mean Corpuscular Volume 87.9 fl (80-94); Mean Platelet Volume 9.1 fL (7.4-10.4); Monocytes # 1.2 10^3/uL (0.2-0.9); Monocytes % 13.4 %; Neutrophils # 5.53 10^3/uL (1.8-7.7); Neutrophils % 63.4 %; Nucleated Red Blood Cells % 0 %; Platelet Count 257 10^3/cmm (130-400); Red Blood Count 4.47 10^6/uL (4.1-5.3); Red Cell Distribution Width 11.4 % (12.1-15.1); White Blood Count 8.7 10^3/uL (4.0-10.0)
[2021-11-05 05:39] LABS: Magnesium 2.4 mg/dL (1.7-2.3); Phosphorus 3.9 mg/dL (2.5-4.5)
[2021-11-05 05:40] LABS: Alanine Aminotransferase 9 U/L (0-41); Albumin Level 3.5 g/dL (3.5-5.2); Alkaline Phosphatase 61 U/L (40-130); Anion Gap 13.4 (5-19); Aspartate Amino Transferase 10 U/L (0-40); Blood Urea Nitrogen 16 mg/dL (8-23); Calcium 8.6 mg/dL (8.5-10.5); Carbon Dioxide 22 mmol/L (22-29); Chloride 105 mmol/L (98-107); Globulin 2.9 g/dL (1.3-4.6); Glomerular Filtration Rate 97.6 mL/min (90-130); Glucose 90 mg/dL (65-115); Osmolality Calculated 283 mOsm/kg (285-295); Potassium 4.4 mmol/L (3.5-5.1); Sodium 136 mmol/L (136-145); Total Bilirubin 0.6 mg/dL (0.15-1.2); Total Protein 6.4 g/dL (6.6-8.7)
[2021-11-05 05:44] LABS: Chol HDL Ratio 3.51 mg/dL (1.0-5.00); Cholesterol 165 mg/dL (0-200); HDL Cholesterol 47 mg/dL (60-100); LDL Cholesterol Calculated 106 mg/dL (50-129); Triglycerides 62 mg/dL (0-150); VLDL Cholestrol Calculation 12 mg/dL (0-30)
[2021-11-05] MEDS: famotidine 20 mg/2 mL INJ IVP (05:51)
[2021-11-05 06:14] LABS: Estmated Average Glucose 154
[2021-11-05 06:15] LABS: Glucose Point of Care 88 mg/dL (70-110)
[2021-11-05] MEDS: ferrous gluconate 324 mg Tablet PO ×2 (08:01→17:12)
[2021-11-05] MEDS: docusate sodium 100 mg Capsule PO ×2 (08:01→17:12)
[2021-11-05 12:10] LABS: Glucose Point of Care 140 mg/dL (70-110)
--- NOTE | 2021-11-05 12:20 | PM.PN ---
Subjective Subjective: No acute events overnight. Patient denies any new complaints. Has remained afebrile. Yet to be seen by orthopedics. Vitals/I&O/Wt Last Vital Signs Temp 97.9 F 11/05/21 08:00 Pulse 76 11/05/21 08:40 Resp 17 11/05/21 08:40 BP 147/82 11/05/21 08:00 Pulse Ox 96 11/05/21 08:40 O2 Del Method 11/05/21 08:40 11/04/21 11/05/21 11/05/21 22:59 06:59 14:59 Intake Total 840.1 / 1840.1 1070 / 2910.1 168 / 168 Output Total 800 / 800 700 / 1500 Balance 40.1 / 1040.1 370 / 1410.1 168 / 168 Weight last 48 hrs Weight 102.149 kg Weight 102.965 kg Physical Exam Narrative: General: No acute distress, AO x3 HEENT: PERRLA, pupils bilaterally equal and reactive Chest: Normal vesicular breath sounds, no added sounds, equal good air entry bilaterally CVS: S1-S2 regular, no murmurs, no tachycardia, no gallops, no rubs Abdomen: Soft, nontender, no organomegaly, bowel sounds present Neuro: No focal deficits, no facial deformity, AO x3, power 5/5 in all limbs Extremity: Second and third toe right foot, left great toe at the base of Blackish discoloration surrounded with under the skin collection of purulence, fluctuant, tender Data : 11/05/21 04:45 11/05/21 04:45 Micro: Microbiology 11/04/21 10:25 Blood Culture - Preliminary Blood NEGATIVE TO DATE 11/04/21 10:30 Blood Culture - Preliminary Blood NEGATIVE TO DATE 11/04/21 15:00 Legionella Urinary Antigen - Final Urine,Clean Catch A&P Assessment and plan (1) Osteomyelitis of great toe of left foot: At the base of left great toe. CT foot done in the ER consistent with osteomyelitis. Continue with IV vancomycin and Zosyn. Blood culture, MRSA swab pending. Orthopedic consulted from the ER. Patient would most likely need amputation of the great toe. Patient pretty upset regarding possibility of amputation. Option discussed with patient whether amputation of the great toe versus deep debridement, OR cultures followed by 6 weeks of IV antibiotics after which also there is a high chance that he would need amputation with risk of spread of osteomyelitis proximally. Status: Acute (2) Diabetic foot ulcer: Status: Acute Qualifiers: Diabetes mellitus type: other specified (including NEELA) Diabetic foot ulcer location: toe Laterality: left Non-pressure ulcer stage: unspecified non-pressure ulcer stage Qualified Code(s): E13.621 - Other specified diabetes mellitus with foot ulcer; L97.529 - Non-pressure chronic ulcer of other part of left foot with unspecified severity (3) Uncontrolled diabetes mellitus: A1c 7. Continue with home dose of Lantus. Insulin sliding scale at low-dose protocol Status: Acute (4) Hyperlipidemia: Lipid panel stable. Start on atorvastatin 10 mg oral daily. Status: Acute Plan Hypertension: New diagnosis. Goal blood pressure less than 140/90 mmHg. Does not have history of hypertension in the past. Start on lisinopril 10 mg oral daily. Will monitor creatinine and potassium. Full code. Cardiac carb consistent diet. Insulin sliding scale. Famotidine for PUD prophylaxis. SCDs for DVT prophylaxis Attestations Medical Necessity Statement*: Requires further hospitalization for management of osteomyelitis of great toe of left foot in setting of diabetes Time Spent in Patient Care: Greater than 35 minutes Coding Level of Care Code Acute Wood Chopper for [facility] Fwd Diagnoses Osteomyelitis of great toe of left foot M86.9 Diabetic foot ulcer E13.621; L97.529 Diabetes mellitus type: other specified (including NEELA) Diabetic foot ulcer location: toe Laterality: left Non-pressure ulcer stage: unspecified non-pressure ulcer stage Uncontrolled diabetes mellitus E11.65 Hyperlipidemia E78.5
[2021-11-05 17:08] LABS: Glucose Point of Care 149 mg/dL (70-110)
[2021-11-05] MEDS: insulin lispro 100 unit/1 mL SUBCUT ×2 (17:16→21:36)
--- NOTE | 2021-11-05 18:08 | PM.CONSULT ---
Providers/Reason For Consult Consulting Physician/Specialty*: Krishna Perez MD; orthopedic surgery Reason for Consult*: Osteomyelitis left big toe Attending Physician: Savage Quezada MD History of Present Illness History of Present Illness Evan Iverson Jr is a 61 year old male with gangrene of his left big toe. He described problems beginning approximately 5 days ago. He noted an initial scab which he picked and progressive duskiness and discoloration. He was seen in the emergency room on 11/02/2021 and begun on Bactrim.. He followed back up on11/04/2021 in the emergency room were progressive changes were identified. He was admitted to the hospitalist service for IV antibiotics and possible surgical treatment. Medications/Allergies Home Medications Medication Instructions Recorded Confirmed Last Taken Type aspirin 81 mg tablet,delayed 81 mg PO QAM 05/04/20 11/04/21 10/31/21 History release sulfamethoxazole 800 1 tab PO BID 10 days #20 tabs 11/02/21 11/04/21 11/03/21 Rx mg-trimethoprim 160 mg tablet (Bactrim DS) insulin glargine 100 unit/mL 36 unit SUBCUT BEDTIME 11/04/21 11/04/21 11/03/21 History subcutaneous solution (Lantus U-100 Insulin) Allergies Allergy/AdvReac Type Severity Reaction Status Date / Time No Known Allergies Allergy Verified 11/02/21 13:39 Current Medications Generic Name Dose Route Start Last Admin Trade Name Freq PRN Reason Stop Dose Admin Docusate Sodium 100 mg 11/04/21 18:00 11/05/21 17:12 Docusate Sodium 100 Mg Capsule PO 100 mg BID SEBASTIÁN Administration Famotidine 20 mg 11/04/21 18:00 11/05/21 17:11 Famotidine 20 Mg/2 Ml Inj IVP Not Given Q12H SEBASTIÁN Ferrous Gluconate 324 mg 11/04/21 18:00 11/05/21 17:12 Ferrous Gluconate 324 Mg Tablet PO 324 mg BIDWM SEBASTIÁN Administration Piperacillin Sod/Tazobactam 50 mls @ 12.5 mls/hr 11/04/21 13:00 11/05/21 17:58 Sod 3.375 gm/ Sodium Chloride IV Infused Q8H SEBASTIÁN Infusion Protocol As Directed Vancomycin/PEG/NADA/Lysine/Water 1,500 mg in 300 mls @ 200 mls/hr 11/05/21 05:00 11/05/21 17:58 Vancocin IV 200 mls/hr Q12H SEBASTIÁN Administration Insulin Glargine 30 unit 11/04/21 21:00 11/04/21 21:23 Insulin Glargine 100 Units/1 Ml SUBCUT Not Given BEDTIME SEBASTIÁN Insulin Human Lispro 0 unit 11/04/21 18:00 11/05/21 17:16 Insulin Lispro 100 Unit/1 Ml SUBCUT 2 unit WM&BEDTIME SEBASTIÁN Administration Protocol Lisinopril 10 mg 11/05/21 12:25 11/05/21 13:36 Lisinopril 10 Mg Tablet PO Not Given DAILY SEBASTIÁN PFSH Acute PFSH: Medical History (Updated 11/04/21 @ 15:40 by Savage Quezada MD) Amputation toe Right toe 2015 through level of [place] tarsal phalangeal joint Diabetic foot ulcer Hx of medication noncompliance Peripheral neuropathy Type 2 diabetes mellitus Surgical History (Updated 11/04/21 @ 15:38 by Savage Quezada MD) H/O hand surgery H/O knee surgery H/O neck surgery History of amputation Family History Other Diabetes Hypertension Social History Smoking and tobacco status: never smoked Alcohol intake: former Lives independently: Yes Housing: House Vitals/I&O/Wt Last Vital Signs Temp 98.0 F 11/05/21 16:00 Pulse 63 11/05/21 16:00 Resp 16 11/05/21 16:00 BP 143/79 11/05/21 16:00 Pulse Ox 99 11/05/21 16:00 O2 Del Method 11/05/21 16:00 11/05/21 11/05/21 11/05/21 06:59 14:59 22:59 Intake Total 1070 / 2910.1 286 / 286 50 / 336 Output Total 700 / 1500 450 / 450 Balance 370 / 1410.1 -164 / -164 50 / -114 Weight last 48 hrs Weight 225 lb 3.2 oz Weight 227 lb Physical Exam Narrative: The patient's left foot reveals a necrotic gangrenous ulceration over the plantar tip of the toe. There is reactive erythema extending up to approximately the mid level of the proximal phalanx. There is no fluctuance or purulence I can appreciate. He is able to flex and send the tip of the toe. His right foot is remarkable for previous amputations of the second and third toes of that foot. Palpable dorsalis pedis pulses bilaterally. Data : 11/05/21 04:45 11/05/21 04:45 Micro: Microbiology 11/04/21 15:00 Bacterial Antigens - Final Urine Kidney 11/04/21 14:50 MRSA Culture - Final Nose 11/04/21 10:25 Blood Culture - Preliminary Blood NEGATIVE TO DATE 11/04/21 10:30 Blood Culture - Preliminary Blood NEGATIVE TO DATE 11/04/21 15:00 Legionella Urinary Antigen - Final Urine,Clean Catch Xray Ortho: My impression: 3 views of the left foot are reviewed dated 11/04/2021. Fragmentation is identified about the distal phalanx of the left big toe. Other CT: My impression: CT scan is reviewed dated 11/04/2021. Fragmentation is seen about the distal phalanx of the left big toe suspicious for pathologic fracture with osteomyelitis. Subcutaneous edema is seen but no obvious fluid collection noted Other data: Duplex ultrasound was reviewed dated 11/04/2021 which shows no significant stenosis or occlusion in the left lower extremity A&P Assessment and plan (1) Osteomyelitis of great toe of left foot: Mr. Iverson has clear osteomyelitis involving at least the distal phalanx of the left big toe with associated reactive cellulitis. There is a large plantar ulcer over the tip of the digit as well. I discussed treatment options with him. In a diabetic male I think there really is no chance of salvage with antibiotics alone. I think the best option would be amputation of at least the distal phalanx of the left big toe. I discussed the procedure with him. He is course is familiar with digital amputations from his right foot. He states he was hoping to salvage the toe but understands. He is in agreement with our plan of care. We will proceed to the operating room Saturday morning for amputation of the left first toe Status: Acute Coding Level of Care Code Acute Supervisor Telephone Answering Service for [facility] Diagnoses Osteomyelitis of great toe of left foot M86.9
[2021-11-05] MEDS: atorvastatin 40 mg Tablet 20 MG PO (20:17)
[2021-11-05 21:30] LABS: Glucose Point of Care 199 mg/dL (70-110)
[2021-11-05] MEDS: insulin glargine 100 units/1 mL 30 UNIT SUBCUT (21:36)
[2021-11-06] VITALS (8 sets, daily range): BP systolic 131–166; BP diastolic 73–87; PULSE 60–102; RESP 17–18; TEMP 36.4–36.9; O2SAT 96–97
[2021-11-06 04:18] LABS: Basophils # 0.1 10^3/uL (0.0-0.1); Basophils % 0.6 %; Eosinophils # 0.2 10^3/uL (0.0-0.8); Eosinophils % 2.2 %; Hematocrit 40.8 % (42.0-52.0); Hemoglobin 13.5 g/dL (11.7-16.6); Lymphocytes # 1.9 10^3/uL (0.8-4.8); Lymphocytes % 22.1 %; Mean Corpuscular HGB Conc 33.1 g/dL (30.0-36.0); Mean Corpuscular Hemoglobin 28.8 pg (28.0-34.0); Mean Corpuscular Volume 87.2 fl (80-94); Mean Platelet Volume 8.9 fL (7.4-10.4); Monocytes # 1.2 10^3/uL (0.2-0.9); Neutrophils # 5.36 10^3/uL (1.8-7.7); Neutrophils % 60.9 %; Nucleated Red Blood Cells % 0 %; Platelet Count 301 10^3/cmm (130-400); Red Blood Count 4.68 10^6/uL (4.1-5.3); Red Cell Distribution Width 11.3 % (12.1-15.1); White Blood Count 8.8 10^3/uL (4.0-10.0)
[2021-11-06 04:43] LABS: Anion Gap 13.5 (5-19); Blood Urea Nitrogen 18 mg/dL (8-23); Carbon Dioxide 25 mmol/L (22-29); Chloride 104 mmol/L (98-107); Glomerular Filtration Rate 75.5 mL/min (90-130); Glucose 74 mg/dL (65-115); Osmolality Calculated 287 mOsm/kg (285-295); Potassium 4.5 mmol/L (3.5-5.1); Sodium 138 mmol/L (136-145)
[2021-11-06 04:44] LABS: Vancomycin Trough 16.3 ug/mL (10-15)
[2021-11-06] MEDS: vancomycin 1,500 MG/300 ML PIGGYBACK 200 MG IV (05:38)
[2021-11-06] MEDS: famotidine 20 mg/2 mL INJ IVP (05:39)
[2021-11-06] MEDS: piperacillin-tazobactam 3.375 GM in sodium chloride 0.9% (plus) 50 ML IV ×3 (05:41→21:04)
[2021-11-06 06:42] LABS: Glucose Point of Care 86 mg/dL (70-110)
[2021-11-06] MEDS: docusate sodium 100 mg Capsule PO (08:36)
[2021-11-06] MEDS: ferrous gluconate 324 mg Tablet PO (08:36)
--- NOTE | 2021-11-06 09:47 | P.PN_ITS ---
Subjective Subjective: No acute vents overnight. Denies any nausea vomiting, headache. Patient seen by orthopedic team yesterday. Plan for great toe amputation on Saturday. Patient agreeable now. Blood pressures have been on the higher side. Patient is reluctant on starting new medications including antihypertensives for now. Vitals/I&O/Wt Last Vital Signs Temp 98.2 F 11/06/21 08:00 Pulse 65 11/06/21 08:00 Resp 17 11/06/21 08:00 BP 154/76 11/06/21 08:00 Pulse Ox 97 11/06/21 08:00 O2 Del Method 11/06/21 08:00 11/05/21 11/06/21 11/06/21 22:59 06:59 14:59 Intake Total 1840 / 2126 50 / 2176 530 / 530 Output Total 400 / 400 Balance 1840 / 1676 50 / 1726 130 / 130 Weight last 48 hrs Weight 120.656 kg Weight 102.149 kg Physical Exam Narrative: General: No acute distress, AO x3 HEENT: PERRLA, pupils bilaterally equal and reactive Chest: Normal vesicular breath sounds, no added sounds, equal good air entry bilaterally CVS: S1-S2 regular, no murmurs, no tachycardia, no gallops, no rubs Abdomen: Soft, nontender, no organomegaly, bowel sounds present Neuro: No focal deficits, no facial deformity, AO x3, power 5/5 in all limbs Extremity: Second and third toe right foot, left great toe at the base of Blackish discoloration surrounded with under the skin collection of purulence, fluctuant, tender Data : 11/06/21 04:08 11/06/21 04:08 Micro: Microbiology 11/04/21 15:00 Bacterial Antigens - Final Urine Kidney 11/04/21 14:50 MRSA Culture - Final Nose 11/04/21 10:25 Blood Culture - Preliminary Blood NEGATIVE TO DATE 11/04/21 10:30 Blood Culture - Preliminary Blood NEGATIVE TO DATE A&P Assessment and plan (1) Osteomyelitis of great toe of left foot: At the base of left great toe. CT foot done in the ER consistent with osteomyelitis. Continue with IV vancomycin and Zosyn. Blood culture, MRSA swab pending. Orthopedic consulted from the ER. Patient would most likely need amputation of the great toe. Patient pretty upset regarding possibility of amputation. Option discussed with patient whether amputation of the great toe versus deep debridement, OR cultures followed by 6 weeks of IV antibiotics after which also there is a high chance that he would need amputation with risk of spread of osteomyelitis proximally. Status: Acute (2) Diabetic foot ulcer: Status: Acute Qualifiers: Diabetes mellitus type: other specified (including NEELA) Diabetic foot ulcer location: toe Laterality: left Non-pressure ulcer stage: unspecified non-pressure ulcer stage Qualified Code(s): E13.621 - Other specified diabetes mellitus with foot ulcer; L97.529 - Non-pressure chronic ulcer of other part of left foot with unspecified severity (3) Uncontrolled diabetes mellitus: A1c 7. Continue with home dose of Lantus. Insulin sliding scale at low-dose protocol Status: Acute (4) Hyperlipidemia: Lipid panel stable. Start on atorvastatin 10 mg oral daily. Status: Acute Plan Hypertension: New diagnosis. Goal blood pressure less than 140/90 mmHg. Does not have history of hypertension in the past. Start on lisinopril 10 mg oral daily. Will monitor creatinine and potassium. Full code. Cardiac carb consistent diet. Insulin sliding scale. Famotidine for PUD prophylaxis. SCDs for DVT prophylaxis Plan for the day: Stop vancomycin. Continue Zosyn. Plan for toe amputation tomorrow. N.p.o. after midnight. Continue insulin sliding scale. Atorvastatin 20 mg, lisinopril 10 mg for hypertension and hyperlipidemia. 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
[2021-11-06 12:00] LABS: Glucose Point of Care 142 mg/dL (70-110)
[2021-11-06 17:14] LABS: Glucose Point of Care 140 mg/dL (70-110)
--- NOTE | 2021-11-06 18:32 | P.PN_ITS ---
Subjective Subjective: No change in pain left big toe Vitals/I&O/Wt Last Vital Signs Temp 98.1 F 11/06/21 16:00 Pulse 71 11/06/21 16:00 Resp 18 11/06/21 16:00 BP 166/84 11/06/21 16:00 Pulse Ox 97 11/06/21 16:00 O2 Del Method 11/06/21 16:00 11/06/21 11/06/21 11/06/21 06:59 14:59 22:59 Intake Total 50 / 2176 820 / 820 50 / 870 Output Total 400 / 400 Balance 50 / 1726 420 / 420 50 / 470 Weight last 48 hrs Weight 266 lb Weight 225 lb 3.2 oz Physical Exam Narrative: Erythema and swelling unchanged left big toe Data : 11/06/21 04:08 11/06/21 04:08 Micro: Microbiology 11/04/21 15:00 Bacterial Antigens - Final Urine Kidney 11/04/21 14:50 MRSA Culture - Final Nose A&P Assessment and plan (1) Osteomyelitis of great toe of left foot: To the operating room in a.m. for an amputation left big toe. Prognosis would appear to be reasonable for healing as foot is quite vascular. The patient of this is of course counseled with diabetes microvasculature could be compromised and even with reasonable large vessels. Healing can be a problem and future surgery is required. Status: Acute Attestations Medical Necessity Statement*: To OR in the morning for amputation big toe Coding Level of Care Code Acute Typing Section Chief for [facility] Diagnoses Osteomyelitis of great toe of left foot M86.9
[2021-11-06] MEDS: atorvastatin 40 mg Tablet 20 MG PO (20:34)
[2021-11-06 20:44] LABS: Glucose Point of Care 218 mg/dL (70-110)
[2021-11-06] MEDS: insulin lispro 100 unit/1 mL SUBCUT (20:57)
[2021-11-06] MEDS: insulin glargine 100 units/1 mL 30 UNIT SUBCUT (20:57)
[2021-11-07] VITALS (11 sets, daily range): BP systolic 133–162; BP diastolic 72–89; PULSE 64–87; RESP 10–18; TEMP 36.1–36.8; O2SAT 94–98
[2021-11-07 02:12] LABS: Basophils % 0.5 %; Eosinophils # 0.2 10^3/uL (0.0-0.8); Eosinophils % 2.6 %; Hematocrit 40.4 % (42.0-52.0); Hemoglobin 13.6 g/dL (11.7-16.6); Lymphocytes # 2.1 10^3/uL (0.8-4.8); Lymphocytes % 24.8 %; Mean Corpuscular HGB Conc 33.7 g/dL (30.0-36.0); Mean Corpuscular Hemoglobin 29.3 pg (28.0-34.0); Mean Corpuscular Volume 87.1 fl (80-94); Monocytes # 0.9 10^3/uL (0.2-0.9); Monocytes % 11.1 %; Neutrophils # 5.13 10^3/uL (1.8-7.7); Neutrophils % 60.4 %; Nucleated Red Blood Cells % 0 %; Platelet Count 279 10^3/cmm (130-400); Red Blood Count 4.64 10^6/uL (4.1-5.3); Red Cell Distribution Width 11.3 % (12.1-15.1); White Blood Count 8.5 10^3/uL (4.0-10.0)
[2021-11-07 02:36] LABS: Alanine Aminotransferase 9 U/L (0-41); Albumin Level 3.5 g/dL (3.5-5.2); Alkaline Phosphatase 62 U/L (40-130); Anion Gap 13.1 (5-19); Aspartate Amino Transferase 8 U/L (0-40); Blood Urea Nitrogen 18 mg/dL (8-23); Calcium 8.9 mg/dL (8.5-10.5); Carbon Dioxide 24 mmol/L (22-29); Chloride 106 mmol/L (98-107); Glomerular Filtration Rate 85.2 mL/min (90-130); Glucose 125 mg/dL (65-115); Osmolality Calculated 291 mOsm/kg (285-295); Potassium 4.1 mmol/L (3.5-5.1); Sodium 139 mmol/L (136-145); Total Bilirubin 0.3 mg/dL (0.15-1.2); Total Protein 6.5 g/dL (6.6-8.7)
[2021-11-07] MEDS: piperacillin-tazobactam 3.375 GM in sodium chloride 0.9% (plus) 50 ML IV (04:33)
[2021-11-07] MEDS: famotidine 20 mg/2 mL INJ IVP (04:33)
--- NOTE | 2021-11-07 06:28 | ANES.PREANE2 ---
Pre-Anesthetic Assessment Height/Weight: Height 1.93 m Weight 103.056 kg Temp Pulse Resp BP Pulse Ox O2 Del Method 97.9 F 64 17 162/79 98 11/07/21 04:00 11/07/21 06:00 11/07/21 04:00 11/07/21 04:00 11/07/21 04:00 11/06/21 16:00 Preop Diagnosis: Right diabetic foot infection Operation Date: 11/07/21 07:00 Proposed Procedures p Amputation Left Great Toe(Left) - Krishna Perez MD Familial anesthetic complications: None Was Beta Elizabeth taken within 24 hours: N/A Was Clonidine taken within 24 hours: N/A Last intake: Intake Last Liquid Date 11/06/21 Last Liquid Time 00:00 Last Solid Date 11/06/21 Last Solid Time 00:00 Social No alcohol and No tobacco Exam alert, oriented x 3, clear to auscultation bilaterally and regular rate & rhythm Airway Submandibular: within normal limits Cervical ROM: within normal limits Mallampati: Class I Dentition: full History/ROS No significant complaints Pulmonary None reported CV/HEM None reported TTE 11/04/21 CONCLUSIONS ?Normal left ventricular size, systolic function and wall ?thickness, with no regional wall motion abnormalities. Grade ?I/IV diastolic dysfunction (abnormal relaxation filling ?pattern), normal to mildly elevated filling pressures. Left ?ventricular ejection fraction is estimated at 60%. ?There are no prior echocardiogram studies to compare. None reported Hepatic None reported GI None reported Metabolic Diabetes Mellitus and Hyperlipidemia [facility] [place] None reported Cellulitis Osteomyelitis Neuropsych Neuropathy Anesthetic Plan ASA status: 3 Anesthesia: Anesthesia Evaluation, General and MAC Other: We discussed risk and benefits of general anesthesia including PONV, sore throat (sometimes severe), corneal abrasion, positioning and peripheral nerve injuries, life threatening allergic reaction, post operative ICU admission requiring prolonged intubation, stroke, heart attack, , and rare incidences of recall. Patient consents to proceed with general anesthesia. Risk of > 500 ml blood loss (7ml/kg in children): No Medications/Allergies Home Medications Medication Instructions Recorded Confirmed Last Taken Type aspirin 81 mg tablet,delayed 81 mg PO QAM 05/04/20 11/04/21 10/31/21 History release sulfamethoxazole 800 1 tab PO BID 10 days #20 tabs 11/02/21 11/04/21 11/03/21 Rx mg-trimethoprim 160 mg tablet (Bactrim DS) insulin glargine 100 unit/mL 36 unit SUBCUT BEDTIME 11/04/21 11/04/21 11/03/21 History subcutaneous solution (Lantus U-100 Insulin) Allergies Allergy/AdvReac Type Severity Reaction Status Date / Time No Known Allergies Allergy Verified 11/02/21 13:39 Current Medications Generic Name Dose Route Start Last Admin Trade Name Freq PRN Reason Stop Dose Admin Atorvastatin Calcium 20 mg 11/05/21 21:00 11/06/21 20:34 Atorvastatin 40 Mg Tablet PO 20 mg BEDTIME SEBASTIÁN Administration Docusate Sodium 100 mg 11/04/21 18:00 11/06/21 17:46 Docusate Sodium 100 Mg Capsule PO Not Given BID SEBASTIÁN Famotidine 20 mg 11/04/21 18:00 11/07/21 04:33 Famotidine 20 Mg/2 Ml Inj IVP 20 mg Q12H SEBASTIÁN Administration Ferrous Gluconate 324 mg 11/04/21 18:00 11/06/21 17:47 Ferrous Gluconate 324 Mg Tablet PO Not Given BIDWM SEBASTIÁN Piperacillin Sod/Tazobactam 50 mls @ 12.5 mls/hr 11/04/21 13:00 11/07/21 04:33 Sod 3.375 gm/ Sodium Chloride IV 12.5 mls/hr Q8H SEBASTIÁN Administration Protocol As Directed Insulin Glargine 30 unit 11/04/21 21:00 11/06/21 20:57 Insulin Glargine 100 Units/1 Ml SUBCUT 30 unit BEDTIME SEBASTIÁN Administration Insulin Human Lispro 0 unit 11/04/21 18:00 11/06/21 20:57 Insulin Lispro 100 Unit/1 Ml SUBCUT 4 unit WM&BEDTIME SEBASTIÁN Administration Protocol Losartan Potassium 25 mg 11/06/21 14:20 11/06/21 15:28 Losartan 50 Mg Tablet PO Not Given DAILY SEBASTIÁN PFSH Anesthesia Medical History Amputation toe Right toe 2015 through level of [place] tarsal phalangeal joint Diabetic foot ulcer Hx of medication noncompliance Peripheral neuropathy Type 2 diabetes mellitus Surgical History H/O hand surgery H/O knee surgery H/O neck surgery History of amputation Family History Other Diabetes Hypertension Social History Smoking and tobacco status: never smoked Alcohol intake: former Lives independently: Yes Housing: House Data Anesthesia : 11/07/21 01:51 11/07/21 01:51 Short CBC 11/06/21 11/07/21 Range/Units 04:08 01:51 WBC 8.8 8.5 (4.0-10.0) 10^3/uL Hgb 13.5 13.6 (11.7-16.6) g/dL Hct 40.8 L 40.4 L (42.0-52.0) % MCV 87.2 87.1 (80-94) fl Plt Count 301 279 (130-400) 10^3/cmm Neut % (Auto) 60.9 60.4 % Neut # (Auto) 5.36 5.13 (1.8-7.7) 10^3/uL BMP 11/06/21 11/07/21 04:08 01:51 Sodium 138 139 Potassium 4.5 4.1 Chloride 104 106 Carbon Dioxide 25 24 BUN 18 18 Creatinine 1.0 0.9 Glucose 74 125 H Calcium 9.0 8.9 Liver Function 11/07/21 Range/Units 01:51 Total Bilirubin 0.3 (0.15-1.2) mg/dL AST 8 (0-40) U/L ALT 9 (0-41) U/L Alkaline Phosphatase 62 (40-130) U/L Albumin 3.5 (3.5-5.2) g/dL Cardiac Studies: Echocardiogram 11/04/21
[2021-11-07 06:48] LABS: Glucose Point of Care 126 mg/dL (70-110)
[2021-11-07] MEDS: sodium chloride 0.9% 1,000 ML 30 ML IV (07:13)
[2021-11-07] MEDS: ceFAZolin 1,000 mg SDV 1000 MG IRRIGATION (07:49)
--- NOTE | 2021-11-07 08:06 | PM.OP ---
Operative Report Date of procedure: November 07, 2021 Pre-op diagnosis: Preop Diagnosis osteomyelitis left big toe distal phalanx Post-op diagnosis: same Pathology: Distal phalangeal bone was sent to pathology for routine and anaerobic culture Surgeon: Krishna Perez Anesthesia: General Estimated blood loss (mL): 2 Tourniquet time (min): 16 Findings: The patient had a area of dry gangrene over the tip of the left big toe distal phalangeal involvement with communication to necrotic Procedure: The patient was taken to the operating room and given a general anesthesia. No antibiotics were given other than those prescribed preoperatively. A tourniquet was inflated to 350 mmHg. A dorsal and plantar flap were made over the proximal phalanx of the big toe approximately the mid portion of the proximal phalanx. Dissection was carried down full-thickness to bone. An oscillating saw was used to divide the proximal phalanx at the level of approximately its proximal third and the plantar flap was completed with a scalpel blade. The flexor tendons were identified and tenodesed to the dorsal extensor bolden with 2-0 Vicryl.. Deep tissues were closed with 2-0 Vicryl. The skin was closed with 3-0 Prolene. Sterile dressings were applied. The patient was extubated and taken to recovery room in stable condition.
--- NOTE | 2021-11-07 10:47 | P.DS_ITS ---
Discharge Providers Date of Admission: 11/04/21 11:22 Date of Discharge: November 07, 2021 Attending Provider at Admission: Savage Quezada MD Attending Provider at Discharge: Simona Wilkerson MD Diagnoses at Discharge Discharge Diagnosis (1) Osteomyelitis of great toe of left foot: Status: Acute Reason for Visit Reason for Visit: Right Toe abnormality Brief History: Evan Iverson Jr is a 61 year old male with past medical history of type 2 diabetes mellitus, hyperlipidemia, amputation of second and third right toe because of osteomyelitis presents to the ER today because of discoloration and pain at the tip of left great toe.? As per the patient it started with skin peeling off around 5 days ago which he cut with a pair of scissors.? Because of discoloration and pain he presented the ER few days ago and he was sent home on oral Bactrim.? He started taking the medication since last night and as it was not helping he presented to the ER. Blood work showed a white count of 11.2, hemoglobin 13.7, potassium of 5.7, creatinine 0.9, CRP of 54, CT foot as below. Hospital Course Hospital Course Patient diagnosed with osteomyelitis of great toe of left foot by CT. Patient underwent amputation of great toe of left foot. Patient received IV vanc and zosyn in hospital. BCx NTD. Lisinopril 10 mg daily and atorvastatin 20 daily added for the patient but patient stated he does not believe in medications. 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 Patient will be setup with PCP at discharge. Case discussed with ID over phone. As per ortho, margins clear. Bone cultures pending. Will tx with levaquin and oct x10 days. Dressing will be changed after 3 days and then daily thereafter. Wound care orders reviewed. HOme health will be setup for the patient. Physical Exam Narrative: General: No acute distress, AO x3 HEENT: nc/at, eomi Chest: clear to auscultation, no wheezes, CVS: S1-S2 regular, no murmurs, no tachycardia Abdomen: Soft, nontender, no organomegaly, bowel sounds present Neuro: No focal deficits Extremity:Left foot post-op covered by bandage. Discharge Data Studies Completed and Pending Completed Studies During Hospitalization Category Date Time Status CT foot LT w con [id number] Stat Cat Scan 11/04/21 10:20 Completed XR foot LT min 3V* [id number] Stat Exams 11/04/21 09:40 [place] [id number] Routine Ultrasound 11/04/21 12:40 Completed CV. echo complete* [id number] Routine Ultrasound 11/04/21 12:42 Completed Pending at discharge Category Date Time Status Blood Culture Stat Lab 11/04/21 10:25 Results Wound Culture and Gram Stain Routine Lab 11/07/21 07:44 Received Pathology: Surgical [PTH] Routine Pth 11/07/21 07:48 Received Radiology Impressions Foot X-Ray 11/04/21 09:40 IMPRESSION: No fractures or dislocation of the left foot. Degenerative changes, as noted above. No osseous erosive changes. Foot CT 11/04/21 10:20 IMPRESSION: Findings are consistent with acute osteomyelitis with pathologic fracture involving the plantar aspect of the 1st distal phalanx. No abscess or drainable fluid collection identified. Duplex Scan Lower Extremity Artery 11/04/21 12:40 IMPRESSION: No significant stenosis or occlusion. Laboratory Results WBC 8.5 10^3/uL (4.0-10.0) 11/07/21 01:51 RBC 4.64 10^6/uL (4.1-5.3) 11/07/21 01:51 Hgb 13.6 g/dL (11.7-16.6) 11/07/21 01:51 Hct 40.4 % (42.0-52.0) L 11/07/21 01:51 MCV 87.1 fl (80-94) 11/07/21 01:51 MCH 29.3 pg (28.0-34.0) 11/07/21 01:51 MCHC 33.7 g/dL (30.0-36.0) 11/07/21 01:51 RDW 11.3 % (12.1-15.1) L 11/07/21 01:51 Plt Count 279 10^3/cmm (130-400) 11/07/21 01:51 MPV 9.0 fL (7.4-10.4) 11/07/21 01:51 Neut % (Auto) 60.4 % 11/07/21 01:51 Lymph % (Auto) 24.8 % 11/07/21 01:51 Frio % (Auto) 11.1 % 11/07/21 01:51 Eos % (Auto) 2.6 % 11/07/21 01:51 Baso % (Auto) 0.5 % 11/07/21 01:51 Neut # (Auto) 5.13 10^3/uL (1.8-7.7) 11/07/21 01:51 Lymph # (Auto) 2.1 10^3/uL (0.8-4.8) 11/07/21 01:51 Frio # (Auto) 0.9 10^3/uL (0.2-0.9) 11/07/21 01:51 Eos # (Auto) 0.2 10^3/uL (0.0-0.8) 11/07/21 01:51 Baso # (Auto) 0.0 10^3/uL (0.0-0.1) 11/07/21 01:51 Nucleated RBC % (auto) 0 % 11/07/21 01:51 Nucleated RBCs # 0.0 /100WBC 11/07/21 01:51 ESR 27 mm/hr (0-10) H 11/04/21 10:00 Sodium 139 mmol/L (136-145) 11/07/21 01:51 Potassium 4.1 mmol/L (3.5-5.1) 11/07/21 01:51 Chloride 106 mmol/L (98-107) 11/07/21 01:51 Carbon Dioxide 24 mmol/L (22-29) 11/07/21 01:51 Anion Gap 13.1 (5-19) 11/07/21 01:51 BUN 18 mg/dL (8-23) 11/07/21 01:51 Creatinine 0.9 mg/dL (0.7-1.2) 11/07/21 01:51 GFR Calculation 85.2 mL/min (90-130) L 11/07/21 01:51 Glucose 125 mg/dL (65-115) H 11/07/21 01:51 POC Glucose 126 mg/dL (70-110) H 11/07/21 06:39 Estimat Average Glucose 154 11/05/21 04:45 Hemoglobin A1c 7.0 % (4.0-6.0) H 11/05/21 04:45 Calculated Osmolality 291 mOsm/kg (285-295) 11/07/21 01:51 Calcium 8.9 mg/dL (8.5-10.5) 11/07/21 01:51 Phosphorus 3.9 mg/dL (2.5-4.5) 11/05/21 04:45 Magnesium 2.4 mg/dL (1.7-2.3) H 11/05/21 04:45 Iron 19 ug/dL (59-158) L 11/04/21 10:19 TIBC 251 mcg/dl 11/04/21 10:19 % Saturation 7.5 % (20-50) L 11/04/21 10:19 Unsat Iron Binding 232 ug/dL (112-347) 11/04/21 10:19 Total Bilirubin 0.3 mg/dL (0.15-1.2) 11/07/21 01:51 AST 8 U/L (0-40) 11/07/21 01:51 ALT 9 U/L (0-41) 11/07/21 01:51 Alkaline Phosphatase 62 U/L (40-130) 11/07/21 01:51 C-Reactive Protein 54.1 mg/L (0.0-4.9) H 11/04/21 10:19 Total Protein 6.5 g/dL (6.6-8.7) L 11/07/21 01:51 Albumin 3.5 g/dL (3.5-5.2) 11/07/21 01:51 Globulin 3.0 g/dL (1.3-4.6) 11/07/21 01:51 Triglycerides 62 mg/dL (0-150) 11/05/21 04:45 Cholesterol 165 mg/dL (0-200) 11/05/21 04:45 LDL Cholesterol, Calc 106 mg/dL (50-129) 11/05/21 04:45 Total VLDL Cholesterol 12 mg/dL (0-30) 11/05/21 04:45 HDL Cholesterol 47 mg/dL (60-100) L 11/05/21 04:45 Cholesterol/HDL Ratio 3.51 mg/dL (1.0-5.00) 11/05/21 04:45 Vitamin B12 449 pg/mL (232-1245) 11/04/21 10:19 Folate 18.0 ng/mL (4.5-32.2) 11/04/21 13:31 Procalcitonin 0.06 ng/mL (0-0.5) 11/04/21 10:19 TSH 2.21 uIU/mL (0.27-4.20) 11/04/21 10:19 Urine Color Yellow (Yellow) 11/04/21 15:00 Urine Appearance Clear (CLEAR) 11/04/21 15:00 Urine pH 6 (5-7) 11/04/21 15:00 Ur Specific Ross 1.010 (1.005-1.030) 11/04/21 15:00 Urine Protein Neg (Negative) 11/04/21 15:00 Urine Glucose (UA) Norm (Normal) 11/04/21 15:00 Urine Ketones Negative (Negative) 11/04/21 15:00 Urine Blood Neg (Negative) 11/04/21 15:00 Urine Nitrate Negative (Negative) 11/04/21 15:00 Urine Bilirubin Neg (Negative) 11/04/21 15:00 Urine Urobilinogen Norm mg/dL (Negative) 11/04/21 15:00 Ur Leukocyte Esterase Negative (Negative) 11/04/21 15:00 Ur Random Sodium 104 mmol/L 11/04/21 15:00 Ur Random Potassium 21 mmol/L 11/04/21 15:00 Ur Random Chloride 99 mmol/L 11/04/21 15:00 Vancomycin Trough 16.3 ug/mL (10-15) H 11/06/21 04:08 Vitals Last Vital Signs Temp 97.8 F 11/07/21 09:40 Pulse 87 11/07/21 09:40 Resp 17 11/07/21 09:40 BP 150/78 11/07/21 09:40 Pulse Ox 95 11/07/21 09:40 O2 Del Method 11/07/21 09:40 O2 Flow Rate 6 11/07/21 08:08 Discharge Plan Discharge Patient Disposition: Home Health Service Condition: Stable Prescriptions: New hydrocodone-acetaminophen 5-325 mg Tablet 1 tab PO Q4H PRN (Reason: MODERATE PAIN) 7 Days Qty: 30 0RF amoxicillin-pot clavulanate 875-125 mg tablet 1 tab PO BID 10 Days Qty: 20 0RF levofloxacin 750 mg tablet 750 mg PO DAILY 10 Days Qty: 10 0RF lisinopril 10 mg tablet 10 mg PO DAILY 30 Days Qty: 30 0RF atorvastatin 20 mg tablet 20 mg PO DAILY 30 Days Qty: 30 0RF Continued aspirin 81 mg Tablet,Delayed Release (Dr/Ec) 81 mg PO QAM Lantus U-100 Insulin 100 unit/mL Solution 36 unit SUBCUT BEDTIME Discontinued sulfamethoxazole-trimethoprim [Bactrim DS] 800-160 mg tablet 1 tab PO BID 10 Days Qty: 20 0RF Discharge Orders: Discharge Order (Routine); Ordered 11/07/21 Ordered By: Simona Wilkerson Referrals: [facility] ([facility]) [Outside] Justina Balbuena FNP-C [Nurse Practitioner] - 11/21/21 11:20 am (WILL ETABLISH A NEW PATIENT STATUS WITH JUSTINA GU) Oskar Hillman FNP [Physician Ice Skating Coach] - 11/22/21 10:00 am Discharge Diet: Advance as tolerated Discharge Activity: Limit activity as instructed Patient Instructions: Hydrocodone/Acetaminophen (By mouth), Amoxicillin/Clavulanate Potassium (By mouth), Levofloxacin (By mouth), Oste omyelitis (GEN), Opioid Safety Activity Restrictions/Additional Instructions: May weight-bear as tolerated on left heel May change dressing as needed for drainage after 72 hours Keep foot dry for now. Will need to follow up with primary care doctor silvano 4-7 days of discharge. Please ensure you complete your prescribed antibiotics. Your cultures from bone that was removed have been sent to lab. You will need to follow up with your doctor for culture results and adjusting antibiotics accordingly. Home health will be setup for you. Wound Care: In 72 hours, please remove surgical dressing and apply light dressing of telfa and kerlix. Discharge Attestations Time Spent in Discharge Care*: less than 30 min Status at Discharge: Cognitive status at discharge: cognitively intact , Behavioral status at discharge: cooperative , Quality Metrics Clinical Quality Measures [ No reported AMI, CVA or VTE this stay] Coding Level of Care Code Acute Chg FW DC note Diagnoses Osteomyelitis of great toe of left foot M86.9
--- NOTE | 2021-11-07 10:56 | PC.SOCIAL ---
IMM update IMM updated with patient. Verbalized an understanding. Copy Pg 2 provided. Initialled, dated, timed, and placed in chart.
[2021-11-07 12:10] LABS: Glucose Point of Care 345 mg/dL (70-110)
--- NOTE | 2021-11-07 14:53 | ANE.PACU2 ---
Inpatient post-anesthesia follow up: Airway intact: Yes Vital signs: Temperature 98.2 F Pulse Rate 80 Respiratory Rate 17 Blood Pressure 158/79 Pulse Oximetry 98 Oxygen Delivery Me thod Room Air Oxygen Flow Rate 6 Fraction of Inspir ed Oxygen Hydration adequate: Yes Nausea and vomiting: No Pain level: 1 Mental status: Baseline
== END 2021-11-07 12:41 | disposition home health service (06) | DRG 617 ==
LOC: ER 10:34 → MEDSURG 11:51
PROVIDERS: Family Medicine; Orthopaedic Surgery; Admitting Provider Student in an Organized Health Care Education/Training Program; Emergency Provider Family Medicine; Visit Provider Internal Medicine
PROC: 0Y6Q0Z1 Detachment at Left 1st Toe, High, Open Approach (ICD-10-PCS; principal; 2021-11-07 07:00)
DX: E11.69 Type 2 diabetes mellitus with other specified complication (principal); E11.52 Type 2 diabetes mellitus with diabetic peripheral angiopathy with gangrene; I96 Gangrene, not elsewhere classified; M86.8X7 Other osteomyelitis, ankle and foot; E11.42 Type 2 diabetes mellitus with diabetic polyneuropathy; E11.621 Type 2 diabetes mellitus with foot ulcer; L97.529 Non-pressure chronic ulcer of other part of left foot with unspecified severity; E11.00 Type 2 diabetes mellitus with hyperosmolarity without nonketotic hyperglycemic-hyperosmolar coma (NKHHC); E78.5 Hyperlipidemia, unspecified; Z89.421 Acquired absence of other right toe(s); Z91.14 Patient's other noncompliance with medication regimen; I10 Essential (primary) hypertension
CPT/HCPCS: 36415; 36416; 73630; 73701; 80048; 80053; 80061; 80202; 81003; 82436; 82607; 82746; 82962; 83036; 83540; 83550; 83735; 84100; 84133; 84145; 84300; 84443; 85025; 85651; 86140; 86403; 87040; 87070; 87075; 87205; 87449; 87641; 88305; 88311; 93306; 93925; 94664; 96365; 96372; 99285; J0690; J1100; J1815; J2405; J2543; J2704; J3010; J3370; J3490; J7030; J7050; Q9967

== ENCOUNTER → 2021-12-25 13:10 | Outpatient (BNVA) | payer MEDICARE, SELFPAY | PROVIDERS: Visit Provider Internal Medicine | DX: E11.65 Type 2 diabetes mellitus with hyperglycemia (principal); E11.621 Type 2 diabetes mellitus with foot ulcer; E11.42 Type 2 diabetes mellitus with diabetic polyneuropathy; E78.5 Hyperlipidemia, unspecified; M86.9 Osteomyelitis, unspecified; S98.139A Complete traumatic amputation of one unspecified lesser toe, initial encounter; L03.032 Cellulitis of left toe; L97.529 Non-pressure chronic ulcer of other part of left foot with unspecified severity; Z79.4 Long term (current) use of insulin | CPT/HCPCS: 99214 ==

== ENCOUNTER → 2024-05-20 10:17 | Outpatient (BNVA) | payer MEDICARE, SELFPAY | PROVIDERS: Visit Provider Nurse Practitioner | DX: F41.1 Generalized anxiety disorder (principal); R53.83 Other fatigue | CPT/HCPCS: 84403 ==

== ENCOUNTER 2024-11-09 10:06 | Inpatient (IN) | payer MEDICARE, SELFPAY ==
[2024-11-09 10:06] VITALS: BP 162/77; PULSE 64; RESP 15; TEMP 36.6; O2SAT 98
--- OUTSIDE RECORDS SUMMARY | 2024-11-09 10:12 | XMS_ITS | Encounter Summary ---
Author Organization [facility] Address [address] [place] [address] Care Team Providers Care Site Project Manager Name Role Phone Unavailable Primary Care Provider Unavailabl e Encounter Details Date Type Department Care Team (Latest Contact Info) Description 02/13/2005 Outpatient Historical [facility] [place] [address] [facility] [address] [place] [address] Madhav Thayer MD [address] [place] [address] CLOSE SKULL FX NEC W/O COMA (CMS/HCC) (Primary Dx) Social History Tobacco Use Types Packs/Day Years Used Date Smoking Tobacco: Never Assessed Sex and Gender Information Value Date Recorded Sex Assigned at Not on file 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
--- OUTSIDE RECORDS SUMMARY | 2024-11-09 10:12 | XMS_ITS | Encounter Summary ---
Author Organization [facility] Address [address] [place] [address] Care Team Providers Care Javascript Web Developer Name Role Phone Unavailable Primary Care Provider Unavailabl e Encounter Details Date Type Department Care Team (Latest Contact Info) Description 06/01/2002 Outpatient Historical [facility] Family Medicine- [address] [place] [address] Yael Javier MD NO ADDRESS ON FILE ABN BLOOD CHEMISTRY NEC (Primary Dx) Social History Tobacco Use Types Packs/Day Years Used Date Smoking Tobacco: Never Assessed Sex and Gender Information Value Date Recorded Sex Assigned at Not on file 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
--- OUTSIDE RECORDS SUMMARY | 2024-11-09 10:12 | XMS_ITS | Encounter Summary ---
Author Organization [facility] Address [address] [place] [address] Care Team Providers Care Field Specialist Name Role Phone Unavailable Primary Care Provider Unavailabl e Encounter Details Date Type Department Care Team (Latest Contact Info) Description 02/05/2005 Outpatient Historical [facility] Ophthalmology 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
--- OUTSIDE RECORDS SUMMARY | 2024-11-09 10:12 | XMS_ITS | Encounter Summary ---
Author Organization [facility] Address [address] [place] [address] Care Team Providers Care Biscuit Maker Name Role Phone Unavailable Primary Care Provider Unavailabl e Encounter Details Date Type Department Care Team (Late st Contact Info) Description 03/07/2005 Outpatient Historical [facility] Orth[facility]- 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
--- OUTSIDE RECORDS SUMMARY | 2024-11-09 10:12 | XMS_ITS | Encounter Summary ---
Author Organization [facility] Address [address] [place] [address] Care Team Providers Care Propagation Manager Name Role Phone Unavailable Primary Care Provider Unavailabl e Encounter Details Date Type Department Care Team (Latest Contact Info) Description 07/06/2002 Outpatient Historical [facility]- [address] [address] Yael Javier MD NO ADDRESS ON FILE HYPERLIPIDEMIA NEC/NOS (Primary Dx) Social History Tobacco Use Types Packs/Day Years Used Date Smoking Tobacco: Never Assessed Sex and Gender Information Value Date Recorded Sex Assigned at Not on file 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
--- OUTSIDE RECORDS SUMMARY | 2024-11-09 10:12 | XMS_ITS | Encounter Summary ---
Author Organization [facility] Address [address] [place] [address] Care Team Providers Care Honest John Rocket Crew Member Name Role Phone Unavailable Primary Care Provider Unavailabl e Encounter Details Date Type Department Care Team (Latest Contact Info) Description 03/02/2005 Outpatient Historical [facility] Ophthalmology 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
--- OUTSIDE RECORDS SUMMARY | 2024-11-09 10:12 | XMS_ITS | Encounter Summary ---
Author Organization [facility] Address [address] [place] [address] Care Team Providers Care Cable Installation Technician Name Role Phone Unavailable Primary Care Provider Unavailabl e Encounter Details Date Type Department Care Team (Latest Contact Info) Description 03/07/2005 Outpatient Historical [facility] [address] [place] [phone] Magen Moreno MD NO ADDRESS ON FILE SURGERY FOLLOWUP NOS (Primary Dx) Social History Tobacco Use Types Packs/Day Years Used Date Smoking Tobacco: Never Assessed Sex and Gender Information Value Date Recorded Sex Assigned at Not on file Legal Sex Male 3:26 AM RN CIRCULATING Gender Identity Not on file Sexual Orientation Not on file documented as of this encounter Plan of Treatment Not on file documented as of this encounter Visit Diagnoses Diagnosis Follow-up examination, following unspecified surgery- Primary documented in this encounter
--- OUTSIDE RECORDS SUMMARY | 2024-11-09 10:12 | XMS_ITS | Encounter Summary ---
Author Organization [facility] Address [address] [place] [address] Care Team Providers Care Stem Setter Name Role Phone Unavailable Primary Care Provider Unavailabl e Encounter Details Date Type Department Care Team (Latest Contact Info) Description 04/08/2001 Outpatient Historical [facility] General Surgery [address] [place] [address] [place] [address] [facility] [address] [place] [address] OPEN WOUND OF FINGER (Primary Dx) Social History Tobacco Use Types Packs/Day Years Used Date Smoking Tobacco: Never Assessed Sex and Gender Information Value Date Recorded Sex Assigned at Not on file 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
--- OUTSIDE RECORDS SUMMARY | 2024-11-09 10:12 | XMS_ITS | Encounter Summary ---
Author Organization [facility] Address [address] [place] [address] Care Team Providers Care Marksmanship Instructor Name Role Phone Unavailable Primary Care Provider Unavailabl e Encounter Details Date Type Department Care Team (Latest Contact Info) Description 02/08/2003 Outpatient Historical [facility]- [address] [address] Clement Whitaker MD [address] [phone] ACUTE BRONCHITIS (Primary Dx) Social History Tobacco Use Types Packs/Day Years Used Date Smoking Tobacco: Never Assessed Sex and Gender Information Value Date Recorded Sex Assigned at Not on file 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
--- OUTSIDE RECORDS SUMMARY | 2024-11-09 10:12 | XMS_ITS | Clinical Summary ---
Author Organization [facility] Address [address] 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
--- OUTSIDE RECORDS SUMMARY | 2024-11-09 10:12 | XMS_ITS | Encounter Summary ---
Author Organization [facility] Address [address] [place] [address] Care Team Providers Care Electric Solderer Name Role Phone Unavailable Primary Care Provider Unavailabl e Encounter Details Date Type Department Care Team (Latest Contact Info) Description 01/20/2005 Inpatient Historical [facility] Operating Room [address] [place] [address] Hemant Preston MD [address] [place] [phone] OCULAR LAC W/O PROLAPSE (Primary Dx) Social History Tobacco Use Types Packs/Day Years Used Date Smoking Tobacco: Never Assessed Sex and Gender Information Value Date Recorded Sex Assigned at Not on file Legal Sex Male 3:26 AM SLP Gender Identity Not on file Sexual Orientation Not on file documented as of this encounter Plan of Treatment Not on file documented as of this encounter Procedures Procedure Name Priority Date/Time Associated Diagnosis Comments CBC WITH DIFFERENTIAL Routine 01/23/2005 3:29 AM SLP BASIC METABOLIC PANEL Routine 01/23/2005 3:29 AM SLP CBC WITH DIFFERENTIAL Routine 01/21/2005 2:27 AM SLP BASIC METABOLIC PANEL Routine 01/21/2005 2:27 AM SLP POC BLOOD GAS, LYTES AND H+H Routine 01/20/2005 11:39 AM SLP CBC WITH DIFFERENTIAL Routine 01/20/2005 5:15 AM SLP BASIC METABOLIC PANEL Routine 01/20/2005 5:15 AM SLP POC BLOOD GAS, LYTES AND H+H Routine 01/20/2005 3:35 AM SLP POC BLOOD GAS, LYTES AND H+H Routine 01/19/2005 8:37 PM SLP CBC WITH DIFFERENTIAL Routine 01/19/2005 8:30 PM SLP PROTIME-INR Routine 01/19/2005 8:30 PM SLP ETHANOL LEVEL Routine 01/19/2005 8:30 PM SLP BASIC METABOLIC PANEL Routine 01/19/2005 8:30 PM SLP documented in this encounter Results * (ABNORMAL) CBC WITH DIFFERENTIAL (01/23/2005 3:29 AM SLP) WBC 10.9 4.5 - 11.0 K/ul INTERFACE SYSTEM RBC 4.05(L) 4.60 - 6.20 Mil/ul INTERFACE SYSTEM HEMOGLOBIN 11.8(L) 14.0 - 18.0 g/dL INTERFACE SYSTEM HEMATOCRIT 35.8(L) 41.0 - 53.0 % INTERFACE SYSTEM MCV 88.4 84.0 - 103.0 Fl INTERFACE SYSTEM MCH 29.1 27.0 - 34.0 pg INTERFACE SYSTEM MCHC 33.0 30.0 - 35.0 g/dL INTERFACE SYSTEM RDW 12.3 11.0 - 14.5 % INTERFACE SYSTEM PLATELETS 249 140 - 440 K/ul INTERFACE SYSTEM MPV 9.6 8.9 - 12.8 Fl INTERFACE SYSTEM NEUTROPHILS 72.7 42.2 - 75.2 % INTERFACE SYSTEM LYMPHOCYTES 14.3(L) 24.0 - 44.0 % INTERFACE SYSTEM MONOCYTES 12.4(H) 2.0 - 10.0 % INTERFACE SYSTEM EOSINOPHILS 0.4 0.0 - 7.0 % INTERFACE SYSTEM BASOPHILS 0.2 0.0 - 1.0 % INTERFACE SYSTEM NEUTROPHIL ABSOLUTE 8.0 2.0 - 8.0 K/uL INTERFACE SYSTEM LYMPHOCYTE ABSOLUTE 1.6 1.2 - 4.0 K/ul INTERFACE SYSTEM MONOCYTE ABSOLUTE 1.4(H) 0.1 - 0.6 K/ul INTERFACE SYSTEM EOSINOPHIL ABSOLUTE 0.0 0.0 - 0.7 K/ul INTERFACE SYSTEM BASOPHILS ABSOLUTE 0.0 0.0 - 0.2 K/ul INTERFACE SYSTEM 01/23/2005 3:29 AM SLP Hemant Preston MD HEMATOLOGY ORDERABLES Final Result Performing Organization Address [facility] Phone Number INTERFACE SYSTEM Refer to clinic/hospital department * (ABNORMAL) BASIC METABOLIC PANEL (01/23/2005 3:29 AM SLP) GLUCOSE 223(H) 70 - 110 mg/dL INTERFACE SYSTEM BUN 15 9 - 20 mg/dL INTERFACE SYSTEM CREATININE 0.5(L) 0.7 - 1.5 mg/dL INTERFACE SYSTEM SODIUM 142 136 - 145 mEq/L INTERFACE SYSTEM POTASSIUM 4.0 3.5 - 5.0 mEq/L INTERFACE SYSTEM CHLORIDE 107 95 - 110 mEq/L INTERFACE SYSTEM CO2 22 22 - 32 mmol/l INTERFACE SYSTEM ANION GAP 17 9 - 20 mEq/L INTERFACE SYSTEM OSMOLALITY, CALCULATED 299(H) 275 - 295 mOsm/Kg INTERFACE SYSTEM CALCIUM 8.7 8.4 - 10.5 mg/dL INTERFACE SYSTEM 01/23/2005 3:29 AM SLP Hemant Preston MD CHEMISTRY ORDERABLES Final Result Performing Organization Address [facility] Phone Number INTERFACE SYSTEM Refer to clinic/hospital department * (ABNORMAL) CBC WITH DIFFERENTIAL (01/21/2005 2:27 AM SLP) WBC 15.1(H) 4.5 - 11.0 K/ul INTERFACE SYSTEM RBC 4.26(L) 4.60 - 6.20 Mil/ul INTERFACE SYSTEM HEMOGLOBIN 12.4(L) 14.0 - 18.0 g/dL INTERFACE SYSTEM HEMATOCRIT 37.3(L) 41.0 - 53.0 % INTERFACE SYSTEM MCV 87.6 84.0 - 103.0 Fl INTERFACE SYSTEM MCH 29.1 27.0 - 34.0 pg INTERFACE SYSTEM MCHC 33.2 30.0 - 35.0 g/dL INTERFACE SYSTEM RDW 12.7 11.0 - 14.5 % INTERFACE SYSTEM PLATELETS 186 140 - 440 K/ul INTERFACE SYSTEM MPV 9.5 8.9 - 12.8 Fl INTERFACE SYSTEM NEUTROPHILS 76.2(H) 42.2 - 75.2 % INTERFACE SYSTEM LYMPHOCYTES 9.3(L) 24.0 - 44.0 % INTERFACE SYSTEM MONOCYTES 14.4(H) 2.0 - 10.0 % INTERFACE SYSTEM BASOPHILS 0.1 0.0 - 1.0 % INTERFACE SYSTEM NEUTROPHIL ABSOLUTE 11.5(H) 2.0 - 8.0 K/uL INTERFACE SYSTEM LYMPHOCYTE ABSOLUTE 1.4 1.2 - 4.0 K/ul INTERFACE SYSTEM MONOCYTE ABSOLUTE 2.2(H) 0.1 - 0.6 K/ul INTERFACE SYSTEM BASOPHILS ABSOLUTE 0.0 0.0 - 0.2 K/ul INTERFACE SYSTEM PERIPHERAL BLOOD SMEAR REVIEW Smear Reviewed INTERFACE SYSTEM 01/21/2005 2:27 AM SLP us Hemnat Preston MD HEMATOLOGY ORDERABLES Final Result Performing Organization Address [facility] Co de Phone Number INTERFACE SYSTEM Refer to clinic/hospital department * (ABNORMAL) BASIC METABOLIC PANEL (01/21/2005 2:27 AM SLP) GLUCOSE 262(H) 70 - 110 mg/dL INTERFACE SYSTEM BUN 11 9 - 20 mg/dL INTERFACE SYSTEM CREATININE 0.8 0.7 - 1.5 mg/dL INTERFACE SYSTEM SODIUM 140 136 - 145 mEq/L INTERFACE SYSTEM POTASSIUM 4.3 3.5 - 5.0 mEq/L INTERFACE SYSTEM CHLORIDE 105 95 - 110 mEq/L INTERFACE SYSTEM CO2 24 22 - 32 mmol/l INTERFACE SYSTEM ANION GAP 15 9 - 20 mEq/L INTERFACE SYSTEM OSMOLALITY, CALCULATED 297(H) 275 - 295 mOsm/Kg INTERFACE SYSTEM CALCIUM 8.1(L) 8.4 - 10.5 mg/dL INTERFACE SYSTEM 01/21/2005 2:27 AM SLP us Hemant Perston MD CHEMISTRY ORDERABLES Final Result Performing Organization Address [facility] Co de Phone Number INTERFACE SYSTEM Refer to clinic/hospital department * (ABNORMAL) POC ISTAT EG 7+ (01/20/2005 11:39 AM SLP) SPECIMEN TYPE Arterial INTERF MAUREEN SYSTEM Comment: PEEP: 05 Pulse OX: 99 FIO2 40 INTERFACE SYSTEM PH 7.38 7.35 - 7.45 Unit INTERFACE SYSTEM PH TEMP CORRECT 7.38 7.35 - 7.45 Unit INTERFACE SYSTEM PCO2 POC 46(H) 35 - 45 mmHg INTERFACE SYSTEM PCO2 TEMP CORRECT 46(H) 35 - 45 mmHg INTERFACE SYSTEM PO2 116(H) 80 - 105 mmHg INTERFACE SYSTEM PO2 TEMP CORRECT 116(H) 80 - 105 mmHg INTERFACE SYSTEM HCO3 (CALC) POC 26.8(H) 22.0 - 26.0 mmol/l INTERFACE SYSTEM BASE EXCESS 2 -2 - 3 mmol/l INTERFACE SYSTEM HEMOGLOBIN POC 12.6(L) 13.5 - 18.0 g/dL INTERFACE SYSTEM HEMATOCRIT ABG 37(L) 38 - 51 % INTER FACE SYSTEM O2 SATURATION 98 95 - 98 % INTERF MAUREEN SYSTEM TCO2 (CALC) POC 28(H) 23 - 27 mmol/l INTERFACE SYSTEM SODIUM 136(L) 138 - 146 mEq/L INTERFACE SYSTEM POTASSIUM 4.1 3.5 - 4.9 mEq/L INTERFACE SYSTEM CALCIUM IONIZED 1.09(L) 1.12 - 1.32 mmol/l INTERFACE SYSTEM 01/20/2005 11:3 9 AM SLP us Physician Sj Ed POINT OF CARE TESTING COM Final Result INTERFACE SYSTEM Refer to clinic/hospital department * (ABNORMAL) BASIC METABOLIC PANEL (01/20/2005 5:15 AM SLP) GLUCOSE 345(H) 70 - 110 mg/dL INTERFACE SYSTEM BUN 11 9 - 20 mg/dL INTERFACE SYSTEM CREATININE 0.8 0.7 - 1.5 mg/dL INTERFACE SYSTEM SODIUM 139 136 - 145 mEq/L INTERFACE SYSTEM POTASSIUM 4.3 3.5 - 5.0 mEq/L INTERFACE SYSTEM CHLORIDE 105 95 - 110 mEq/L INTERFACE SYSTEM CO2 24 22 - 32 mmol/l INTERFACE SYSTEM ANION GAP 14 9 - 20 mEq/L INTERFACE SYSTEM OSMOLALITY, CALCULATED 300(H) 275 - 295 mOsm/Kg INTERFACE SYSTEM CALCIUM 8.1(L) 8.4 - 10.5 mg/dL INTERFACE SYSTEM 01/20/2005 5:15 AM SLP Hemant Preston MD CHEMISTRY ORDERABLES Final Result INTERFACE SYSTEM Refer to clinic/hospital department * (ABNORMAL) CBC WITH DIFFERENTIAL (01/20/2005 5:15 AM SLP) WBC 16.6(H) 4.5 - 11.0 K/ul INTERFACE SYSTEM RBC 4.67 4.60 - 6.20 Mil/ul INTERFACE SYSTEM HEMOGLOBIN 13.6(L) 14.0 - 18.0 g/dL INTERFACE SYSTEM HEMATOCRIT 39.3(L) 41.0 - 53.0 % INTERFACE SYSTEM MCV 84.2 84.0 - 103.0 Fl INTERFACE SYSTEM MCH 29.1 27.0 - 34.0 pg INTERFACE SYSTEM MCHC 34.6 30.0 - 35.0 g/dL INTERFACE SYSTEM RDW 12.6 11.0 - 14.5 % INTERFACE SYSTEM PLATELETS 231 140 - 440 K/ul INTERFACE SYSTEM MPV 9.8 8.9 - 12.8 Fl INTERFACE SYSTEM NEUTROPHILS 81.4(H) 42.2 - 75.2 % INTERFACE SYSTEM LYMPHOCYTES 6.3(L) 24.0 - 44.0 % INTERFACE SYSTEM MONOCYTES 12.1(H) 2.0 - 10.0 % INTERFACE SYSTEM EOSINOPHILS 0.1 0.0 - 7.0 % INTERFACE SYSTEM BASOPHILS 0.1 0.0 - 1.0 % INTERFACE SYSTEM NEUTROPHIL ABSOLUTE 13.5(H) 2.0 - 8.0 K/uL INTERFACE SYSTEM LYMPHOCYTE ABSOLUTE 1.1(L) 1.2 - 4.0 K/ul INTERFACE SYSTEM MONOCYTE ABSOLUTE 2.0(H) 0.1 - 0.6 K/ul INTERFACE SYSTEM EOSINOPHIL ABSOLUTE 0.0 0.0 - 0.7 K/ul INTERFACE SYSTEM BASOPHILS ABSOLUTE 0.0 0.0 - 0.2 K/ul INTERFACE SYSTEM PERIPHERAL BLOOD SMEAR REVIEW Automated Diff INTERFACE SYSTEM 01/20/2005 5:15 AM SLP Hemant Preston MD HEMATOLOGY ORDERABLES Final Result INTERFACE SYSTEM Refer to clinic/hospital department * (ABNORMAL) POC ISTAT EG 7+ (01/20/2005 3:35 AM SLP) SPECIMEN TYPE Arterial INTERF MAUREEN SYSTEM Comment: Tidal volume: 800 PEEP: 05 Rate: 12 Pulse OX: 100 FIO2 60 INTERFACE SYSTEM PH 7.38 7.35 - 7.45 Unit INTERFACE SYSTEM PH TEMP CORRECT 7.38 7.35 - 7.45 Unit INTERFACE SYSTEM PCO2 POC 43 35 - 45 mmHg INTERFACE SYSTEM PCO2 TEMP CORRECT 43 35 - 45 mmHg INTERFACE SYSTEM PO2 221(H) 80 - 105 mmHg INTERFACE SYSTEM PO2 TEMP CORRECT 221(H) 80 - 105 mmHg INTERFACE SYSTEM HCO3 (CALC) POC 25.3 22.0 - 26.0 mmol/l INTERFACE SYSTEM BASE EXCESS 0 -2 - 3 mmol/l INTERFACE SYSTEM HEMOGLOBIN POC 13.6 13.5 - 18.0 g/dL INTERFACE SYSTEM HEMATOCRIT ABG 40 38 - 51 % INTER FACE SYSTEM O2 SATURATION 100(H) 95 - 98 % INTERF MAUREEN SYSTEM TCO2 (CALC) POC 27 23 - 27 mmol/l INTERFACE SYSTEM SODIUM 137(L) 138 - 146 mEq/L INTERFACE SYSTEM POTASSIUM 4.5 3.5 - 4.9 mEq/L INTERFACE SYSTEM CALCIUM IONIZED 1.09(L) 1.12 - 1.32 mmol/l INTERFACE SYSTEM 01/20/2005 3:35 AM SLP us Physician Sj Ed POINT OF CARE TESTING COM Final Result INTERFACE SYSTEM Refer to clinic/hospital department * (ABNORMAL) POC ISTAT EG 7+ (01/19/2005 8:37 PM SLP) SPECIMEN TYPE Arterial INTERF MAUREEN SYSTEM Comment: Tidal volume: 700 PEEP: 05 Rate: 12 Pulse OX: 100 FIO2 100 INTERFACE SYSTEM PH 7.25(L) 7.35 - 7.45 Unit INTERFACE SYSTEM PH TEMP CORRECT 7.25(L) 7.35 - 7.45 Unit INTERFACE SYSTEM PCO2 POC 55(H) 35 - 45 mmHg INTERFACE SYSTEM PCO2 TEMP CORRECT 55(H) 35 - 45 mmHg INTERFACE SYSTEM PO2 346(H) 80 - 105 mmHg INTERFACE SYSTEM PO2 TEMP CORRECT 346(H) 80 - 105 mmHg INTERFACE SYSTEM HCO3 (CALC) POC 24.0 22.0 - 26.0 mmol/l INTERFACE SYSTEM BASE EXCESS -3(L) -2 - 3 mmol/l INTERFACE SYSTEM HEMOGLOBIN POC 15.0 13.5 - 18.0 g/dL INTERFACE SYSTEM HEMATOCRIT ABG 44 38 - 51 % INTER FACE SYSTEM O2 SATURATION 100(H) 95 - 98 % INTERF MAUREEN SYSTEM TCO2 (CALC) POC 26 23 - 27 mmol/l INTERFACE SYSTEM SODIUM 139 138 - 146 mEq/L INTERFACE SYSTEM POTASSIUM 3.7 3.5 - 4.9 mEq/L INTERFACE SYSTEM CALCIUM IONIZED 1.11(L) 1.12 - 1.32 mmol/l INTERFACE SYSTEM 01/19/2005 8:37 PM SLP Physician Sj Ed POINT OF CARE TESTING COM Final Result Performing Organization Address [facility] de Phone Number INTERFACE SYSTEM Refer to clinic/hospital department * PROTIME-INR (01/19/2005 8:30 PM SLP) PROTIME 13.9 12.6 - 14.9 Secs INTERFACE SYSTEM Comment: As of 04 note change in normal range. INR 1.0 INTERFACE SYSTEM Comment: Expected Values for INR: DVT/PE Goal INR 2.5; range 2.0 - 3.0 Valve Replacement Tissue Goal INR 2.5; range 2.0 - 3.0 Mechanical Goal INR 3.0; range 2.5 - 3.5 POST-IN Goal INR 2.5; range 2.0 - 3.0 or Goal 3.0; range 2.5 - 3.5 Atrial Fibrillation Goal INR 2.5; range 2.0 - 3.0 Ischemic Stroke Goal INR 2.5; range 2.0 - 3.0 For additional information see Guidelines for Anticoagulation available from the pharmacy Joyce Iniguez Pharm D. 01/19/2005 8:30 PM SLP Physician Ed HEMATOLOGY ORDERABLES Final Resu lt Performing Organization Address [facility] Co de Phone Number INTERFACE SYSTEM Refer to clinic/hospital department * ETHANOL LEVEL (01/19/2005 8:30 PM SLP) ETHANOL <10 <=10 mg/dL INTERFACE SYSTEM Comment:Moderate to gross he molysis 01/19/2005 8:30 PM SLP Physician Sj Ed CHEMISTRY ORDERABLES Final Resul t INTERFACE SYSTEM Refer to clinic/hospital department * (ABNORMAL) CBC WITH DIFFERENTIAL (01/19/2005 8:30 PM SLP) WBC 19.2(H) 4.5 - 11.0 K/ul INTERFACE SYSTEM RBC 5.21 4.60 - 6.20 Mil/ul INTERFACE SYSTEM HEMOGLOBIN 15.4 14.0 - 18.0 g/dL INTERFACE SYSTEM HEMATOCRIT 43.8 41.0 - 53.0 % INTERFACE SYSTEM MCV 84.1 84.0 - 103.0 Fl INTERFACE SYSTEM MCH 29.6 27.0 - 34.0 pg INTERFACE SYSTEM MCHC 35.2(H) 30.0 - 35.0 g/dL INTERFACE SYSTEM RDW 12.4 11.0 - 14.5 % INTERFACE SYSTEM PLATELETS 238 140 - 440 K/ul INTERFACE SYSTEM MPV 10.2 8.9 - 12.8 Fl INTERFACE SYSTEM NEUTROPHILS 77.4(H) 42.2 - 75.2 % INTERFACE SYSTEM LYMPHOCYTES 14.2(L) 24.0 - 44.0 % INTERFACE SYSTEM MONOCYTES 7.9 2.0 - 10.0 % INTERFA CE SYSTEM EOSINOPHILS 0.3 0.0 - 7.0 % INTERF MAUREEN SYSTEM BASOPHILS 0.2 0.0 - 1.0 % INTERFAC E SYSTEM NEUTROPHIL ABSOLUTE 14.8(H) 2.0 - 8.0 K/uL INTERFACE SYSTEM LYMPHOCYTE ABSOLUTE 2.7 1.2 - 4.0 K/ul INTERFACE SYSTEM MONOCYTE ABSOLUTE 1.5(H) 0.1 - 0.6 K/ul INTERFACE SYSTEM EOSINOPHIL ABSOLUTE 0.1 0.0 - 0.7 K/ul INTERFACE SYSTEM BASOPHILS ABSOLUTE 0.0 0.0 - 0.2 K/ul INTERFACE SYSTEM HEM COMMENT Automated Diff Automated Diff INTERFACE SYSTEM 01/19/2005 8:30 PM SLP Physician Ed HEMATOLOGY ORDERABLES Final Resu lt INTERFACE SYSTEM Refer to clinic/hospital department * (ABNORMAL) BASIC METABOLIC PANEL (01/19/2005 8:30 PM SLP) GLUCOSE 376(H) 70 - 110 mg/dL INTERFACE SYSTEM BUN 14 9 - 20 mg/dL INTERFACE SYSTEM CREATININE 0.8 0.7 - 1.5 mg/dL INTERFACE SYSTEM SODIUM 137 136 - 145 mEq/L INTERFACE SYSTEM POTASSIUM 4.8 3.5 - 5.0 mEq/L INTERFACE SYSTEM Comment:Moderate to gross he molysis CHLORIDE 102 95 - 110 mEq/L INTERFACE SYSTEM CO2 23 22 - 32 mmol/l INTERFACE SYSTEM ANION GAP 17 9 - 20 mEq/L INTERFACE SYSTEM OSMOLALITY, CALCULATED 300(H) 275 - 295 mOsm/Kg INTERFACE SYSTEM CALCIUM 8.3(L) 8.4 - 10.5 mg/dL INTERFACE SYSTEM 01/19/2005 8:30 PM SLP us Physician Sj Ed CHEMISTRY ORDERABLES Final Resul t INTERFACE SYSTEM Refer to clinic/hospital department documented in this encounter Visit Diagnoses Diagnosis Ocular laceration without prolapse of intraocular tissue- Primary documented in this encounter
--- OUTSIDE RECORDS SUMMARY | 2024-11-09 10:12 | XMS_ITS | Encounter Summary ---
Author Organization [facility] Address [address] [place] [address] Care Team Providers Care Picker Machine Operator Name Role Phone Unavailable Primary Care Provider Unavailabl e Encounter Details Date Type Department Care Team (Latest Contact Info) Description 01/30/2005 Outpatient Historical [facility] Operating Room [address] [place] [address] Magen Moreno MD NO ADDRESS ON FILE FX ORBITAL FLOOR-CLOSED (CMS/HCC) (Primary Dx) Social History Tobacco Use Types Packs/Day Years Used Date Smoking Tobacco: Never Assessed Sex and Gender Information Value Date Recorded Sex Assigned at Not on file Legal Sex Male 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
--- OUTSIDE RECORDS SUMMARY | 2024-11-09 10:12 | XMS_ITS | Encounter Summary ---
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
--- OUTSIDE RECORDS SUMMARY | 2024-11-09 10:12 | XMS_ITS | Encounter Summary ---
Author Organization [facility] Address [address] [place] [address] Care Team Providers Care Optometric Aide Name Role Phone Unavailable Primary Care Provider Unavailabl e Encounter Details Date Type Department Care Team (Late st Contact Info) Description 04/18/2005 Outpatient Historical [facility] Orthopedics- 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
--- OUTSIDE RECORDS SUMMARY | 2024-11-09 10:12 | XMS_ITS | Encounter Summary ---
Author Organization [facility] Address [address] [place] [address] Care Team Providers Care Pick Up And Delivery Driver Name Role Phone Unavailable Primary Care Provider Unavailabl e Encounter Details Date Type Department Care Team (Late st Contact Info) Description 02/05/[address] [facility] Orthopedics- 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
--- OUTSIDE RECORDS SUMMARY | 2024-11-09 10:12 | XMS_ITS | Encounter Summary ---
Author Organization [facility] Address [address] [place] [address] Care Team Providers Care Public Health Program Manager Name Role Phone Unavailable Primary Care Provider Unavailabl e Encounter Details Date Type Department Care Team (Late st Contact Info) Description 03/02/2005 Outpatient Historical [facility] Ophthalmology 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
--- OUTSIDE RECORDS SUMMARY | 2024-11-09 10:12 | XMS_ITS | Encounter Summary ---
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
--- OUTSIDE RECORDS SUMMARY | 2024-11-09 10:12 | XMS_ITS | Encounter Summary ---
Author Organization [facility] Address [address] [place] [address] Care Team Providers Care Fishing Gear Mechanic Name Role Phone Unavailable Primary Care Provider Unavailabl e Encounter Details Date Type Department Care Team (Latest Contact Info) Description 01/29/2005 Outpatient Historical [facility] Th[facility] 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
--- OUTSIDE RECORDS SUMMARY | 2024-11-09 10:12 | XMS_ITS | Encounter Summary ---
Author Organization [facility] Address [address] [place] [address] Care Team Providers Care Frozen Food Department Manager Name Role Phone Unavailable Primary Care Provider Unavailabl e Encounter Details Date Type Department Care Team (Latest Contact Info) Description 04/08/2001 Outpatient Historical [facility] Family Medicine [address] [phone] Edilberto England, DO NO ADDRESS ON FILE EXAM-MEDICOLEGAL REASONS (Primary Dx) Social History Tobacco Use Types Packs/Day Years Used Date Smoking Tobacco: Never Assessed Sex and Gender Information Value Date Recorded Sex Assigned at Not on file 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
--- OUTSIDE RECORDS SUMMARY | 2024-11-09 10:12 | XMS_ITS | Encounter Summary ---
Author Organization [facility] Address [address] [place] [address] Care Team Providers Care Principal Solutions Architect Name Role Phone Unavailable Primary Care Provider Unavailabl e Encounter Details Date Type Department Care Team (Latest Contact Info) Description 02/13/2005 Outpatient Historical [facility] Ophthalmology 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
--- OUTSIDE RECORDS SUMMARY | 2024-11-09 10:12 | XMS_ITS | Encounter Summary ---
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
[2024-11-09 10:25] VITALS: BP 156/104; PULSE 92; RESP 18; TEMP 37; O2SAT 96
--- NOTE | 2024-11-09 10:29 | XRR_ITS ---
PROCEDURE INFORMATION: Exam: XR Left Toe(s) Exam date and time: 11/09/2024 10:33 AM Age: 64 years old Clinical indication: Pain; Toes; Left; Prior surgery; Surgery date: 6+ months; Surgery type: Great toe amputation; Additional info: Infected TECHNIQUE: Imaging protocol: Radiologic exam of the left toes. Views: Minimum 2 views. COMPARISON: CT foot LT w con [id number] 11/04/2021 10:55 AM FINDINGS: Bones/joints: Postoperative change from remote great toe amputation at the level of the proximal diaphysis of the 1st proximal phalanx. Normal alignment. No definite acute fracture. Tiny osseous fragment along the dorsal aspect of the 3rd D IP joint, possibly related to remote fracture. No osseous destruction to suggest osteomyelitis. Soft tissues: Second and 3rd digit soft tissue swelling. XR/XR toe LT min 2V [id number] IMPRESSION: 1. Postoperative change from remote great toe amputation at the level of the proximal diaphysis of the 1st proximal phalanx. 2. No osseous destruction to suggest osteomyelitis.
--- NOTE | 2024-11-09 10:30 | W.ED.EXTPRO ---
HPI - Extremity Problem General: Chief complaint: Extremity Injury, Lower Stated complaint: lt foot toe inj Time Seen by Provider: 11/09/24 10:08 Source: patient Mode of arrival: ambulatory Limitations: no limitations History of Present Illness: Patient is a 64-year-old male who presents to ED today due to a concern that he lost his toenail to his left third digit. He states he just noticed it this morning. Upon examining the toe, it is necrotic. Patient was reportedly unaware of this. He has his great toe already amputated from previous diabetic infection. Patient reports he has diabetic neuropathy and cannot feel much to his feet. He denies fevers or other systemic symptoms. No redness or streaking on his foot. MD Complaint: other (concern regarding toenail) Onset (ago): day(s) Location: left and toe Radiation: none Relieving factors: nothing Exacerbating factors: nothing Associated symptoms: Deny fever(s) or rash Related Data Home Medications ?Medication ?Instructions ?Recorded ?Confirmed No Known Home Medications 11/09/24 11/09/24 Allergies Allergy/AdvReac Type Severity Reaction Status Date / Time No Known Allergies Allergy Verified 05/20/24 09:46 Review of Systems Const: Denies: fever(s), chills, body aches, fatigue or malaise Musc: Denies: extremity pain, extremity swelling, joint pain or joint swelling Skin/Breast: Denies: rash or erythema Neuro: Reports: numbness in extremities (chronic peripheral neuropathy) [facility] ED PFSH: Medical History Peripheral neuropathy Amputation toe Right toe 2016 through level of [place] tarsal phalangeal joint Diabetic foot ulcer Type 2 diabetes mellitus Hx of medication noncompliance Surgical History History of amputation H/O hand surgery H/O knee surgery H/O neck surgery Family History Other Diabetes Hypertension Social History Smoking and tobacco/nicotine status: never used tobacco/nicotine Alcohol intake: former Substance/Drug Use: never Adopted: No Lives independently: Yes Housing: House Current occupational status: retired Current gender identity: Male Physical Exam Const: COMMON NORMALS: no acute distress, average body habitus, patient oriented x3, no limitations, healthy appearing, alert and well nourished GENERAL APPEARANCE: cooperative Resp: COMMON NORMALS: normal respiratory effort and clear to auscultation bilaterally AUSCULTATION: clear to auscultation bilaterally Cardio: COMMON NORMALS: regular rate and regular rhythm RATE: regular rate RHYTHM: regular rhythm Extremity: GENERAL: Yes normal exam except as noted LEFT LOWER EXTREMITY: Yes foot & digits Left foot and digits: Yes neurovascular exam (normal) OTHER: L great toe previous amputation; 3rd toe appears necrotic with no obvious odor or discharge; no streaking to dorsal foot; no surrounding cellulitis; patient with peripheral neuropathy and altered sensation Neuro: COMMON NORMALS: patient oriented x3 SENSORIUM/ORIENTATION: Yes alert Skin: NARRATIVE SKIN EXAM: see above Course Consultations: Consultation #1: Dr. Roberts-recommends IV abx and will consult on patient; plan to admit to hospitalist with toe amputation tomorrow Consultation #2: Dr. Ferguson-recommending serum ketones/VBG, will admit to [facility] Vital Signs: Vital signs: Vital Signs Temperature 98.6 F 11/09/24 10:25 Pulse Rate 92 11/09/24 10:25 Respiratory Rate 18 11/09/24 10:25 Blood Pressure 156/104 11/09/24 10:25 Pulse Oximetry 96 11/09/24 10:25 Oxygen Delivery Me thod Room Air 11/09/24 10:25 MDM - Extremity (Nontraumatic) Medical Decision Making Patient is a 64-year-old male who presented to the ED today with a concern that he had lost his toenail to his left third digit. He apparently had not realized that the toe was necrotic. He is a diabetic with significant diabetic neuropathy. He states he does not check his blood sugars at home nor is on any medications for his diabetes. Spoke to Dr. Roberts who will plan for toe amputation tomorrow. Patient will be admitted to hospitalist, Dr. Ferguson. Medical Records I reviewed the patient's medical records. Lab Data I reviewed the patient's lab results. 11/09/24 10:43 11/09/24 10:43 Radiology Impressions Toe X-Ray 11/09/24 10:29 IMPRESSION: 1. Postoperative change from remote great toe amputation at the level of the proximal diaphysis of the 1st proximal phalanx. 2. No osseous destruction to suggest osteomyelitis. Laboratory Results WBC 6.51 10^3/uL (3.29-11.43) 11/09/24 10:43 RBC 5.04 10^6/uL (3.85-5.65) 11/09/24 10:43 Hgb 14.20 g/dL (11.27-16.99) 11/09/24 10:43 Hct 42.5 % (37-53) 11/09/24 10:43 MCV 84.3 fl (82-101) 11/09/24 10:43 MCH 28.2 pg (27-33) 11/09/24 10:43 MCHC 33.4 g/dL (30-55) 11/09/24 10:43 RDW 11.8 % (12.1-15.1) L 11/09/24 10:43 Plt Count 237 10^3/cmm (157-399) 11/09/24 10:43 MPV 8.8 fL (7.4-10.4) 11/09/24 10:43 Neut % (Auto) 69.7 % 11/09/24 10:43 Lymph % (Auto) 16.9 % 11/09/24 10:43 Howell % (Auto) 11.7 % 11/09/24 10:43 Eos % (Auto) 0.6 % 11/09/24 10:43 Baso % (Auto) 0.3 % 11/09/24 10:43 Neut # (Auto) 4.54 10^3/uL (1.8-7.7) 11/09/24 10:43 Lymph # (Auto) 1.1 10^3/uL (0.8-4.8) 11/09/24 10:43 Howell # (Auto) 0.8 10^3/uL (0.2-0.9) 11/09/24 10:43 Eos # (Auto) 0.0 10^3/uL (0.0-0.8) 11/09/24 10:43 Baso # (Auto) 0.0 10^3/uL (0.0-0.1) 11/09/24 10:43 Nucleated RBC % (auto) 0 % 11/09/24 10:43 Nucleated RBCs # 0.0 /100WBC 11/09/24 10:43 Sodium 130 mmol/L (136-145) L 11/09/24 10:43 Potassium 4.8 mmol/L (3.5-5.1) 11/09/24 10:43 Chloride 91 mmol/L (98-107) L 11/09/24 10:43 Carbon Dioxide 25 mmol/L (22-29) 11/09/24 10:43 Anion Gap 18.8 (5-19) 11/09/24 10:43 BUN 19 mg/dL (8-23) 11/09/24 10:43 Creatinine 1.1 mg/dL (0.7-1.2) 11/09/24 10:43 GFR Calculation 67.0 mL/min (90-130) L 11/09/24 10:43 Glucose 538 mg/dL (65-115) H* 11/09/24 10:43 Calculated Osmolality 297 mOsm/kg (285-295) H 11/09/24 10:43 Lactic Acid 1.2 mmol/L (0.5-2.2) 11/09/24 10:43 Calcium 9.4 mg/dL (8.5-10.5) 11/09/24 10:43 Total Bilirubin 0.5 mg/dL (0.15-1.2) 11/09/24 10:43 AST 12 U/L (0-40) 11/09/24 10:43 ALT 15 U/L (0-41) 11/09/24 10:43 Alkaline Phosphatase 91 U/L (40-130) 11/09/24 10:43 C-Reactive Protein 54.6 mg/L (0.0-4.9) H 11/09/24 10:43 Total Protein 7.2 g/dL (6.6-8.7) 11/09/24 10:43 Albumin 3.9 g/dL (3.5-5.2) 11/09/24 10:43 Globulin 3.3 g/dL (1.3-4.6) 11/09/24 10:43 All radiology interpretation(s) finalized by discharge Discharge Plan Discharge Patient Disposition: Admitted As Inpatient Clinical Impression: Osteomyelitis of third toe of left foot, Uncontrolled diabetes mellitus, Noncompliance with medications Condition: Stable Coding Level of Care Code ED Tile Shader for Marva Orr
[2024-11-09 10:48] LABS: Hematocrit 42.5 % (37-53); Hemoglobin 14.20 g/dL (11.27-16.99); Mean Corpuscular HGB Conc 33.4 g/dL (30-55); Mean Corpuscular Hemoglobin 28.2 pg (27-33); Mean Corpuscular Volume 84.3 fl (82-101); Nucleated Red Blood Cells % 0 %; Platelet Count 237 10^3/cmm (157-399); Red Blood Count 5.04 10^6/uL (3.85-5.65); White Blood Count 6.51 10^3/uL (3.29-11.43)
[2024-11-09 11:08] LABS: Lactic Sepsis W/Reflex 1.2 mmol/L (0.5-2.2)
[2024-11-09 11:09] LABS: Alanine Aminotransferase 15 U/L (0-41); Albumin Level 3.9 g/dL (3.5-5.2); Alkaline Phosphatase 91 U/L (40-130); Anion Gap 18.8 (5-19); Aspartate Amino Transferase 12 U/L (0-40); Blood Urea Nitrogen 19 mg/dL (8-23); Calcium 9.4 mg/dL (8.5-10.5); Carbon Dioxide 25 mmol/L (22-29); Chloride 91 mmol/L (98-107); Creatinine Clr Calc Pharmacy 86.2952; Globulin 3.3 g/dL (1.3-4.6); Osmolality Calculated 297 mOsm/kg (285-295); Potassium 4.8 mmol/L (3.5-5.1); Sodium 130 mmol/L (136-145); Total Protein 7.2 g/dL (6.6-8.7)
[2024-11-09 11:12] LABS: Glucose 538 mg/dL (65-115)
[2024-11-09 11:33] LABS: Ketone (Acetest) Serum Positive (Negative)
[2024-11-09] MEDS: insulin regular-human 100 units/1 mL 10 UNIT IVP (11:35)
[2024-11-09] MEDS: piperacillin-tazobactam 3.375 GM in sodium chloride 0.9% (plus) 50 ML IV ×2 (11:37→18:06)
[2024-11-09 11:45] VITALS: BP 143/88; PULSE 85; O2SAT 96
[2024-11-09 11:46] LABS: Base Excess VBG -4.4 mmol/L (-3.0-3.0); Blood Gas Operator Identificat GL; Blood Gas Sample Site Not specified; Blood Gas Sample Type Arterial; HCO3 VBG 21.3 mmol/L (24-28); PCO2 VBG 40.3 mmHg (41-51); PO2 VBG 20.5 mmHg (25-40); Venous Blood Gas Hematocrit 37.4 % (42-52); pH VBG 7.33 (7.32-7.42)
--- NOTE | 2024-11-09 11:53 | P.HP_ITS ---
Providers/Chief Complaint 2 Chief Complaint: lt foot toe inj History of Present Illness Evan Iverson Jr is a 64 year old gentleman with history of type 2 diabetes mellitus, previously on insulin glargine (Lantus) 22 units in 2021, presents after noticing his left third toenail came off on Saturday; toe found to be necrotic in the emergency department today. Last documented hemoglobin A1c was 7% in 2021. He had stopped all diabetes medications sometime since 2021 after previously declining a statin and reporting plans to see someone in [place] regarding a ?diabetes cure.? Diabetes history is complicated by peripheral neuropathy and a prior amputation in 2021 following a diabetic foot ulcer. Reports chronic diarrhea that is not new. Denies fever, chills, sore throat, rhinorrhea, sneezing, cough, nausea, vomiting, new rashes, hematochezia, melena, hematuria, or dysuria. Denies exertional chest pain, dyspnea on exertion, or calf pain with walking. States he is not taking any medications currently and only takes vinegar shots. A primary care visit in May 2024 reportedly started escitalopram for anxiety, and he declined glucose-lowering medications. In the ED: BP 156/104, HR 92, RR 18, Temp 98.6?F, SpO2 96% on room air. Labs: white count normal, hemoglobin/platelets normal, sodium 130, potassium 4.8, chloride 91, glucose 538, bicarbonate 25, anion gap 18.8, BUN 19, creatinine 1.1, lactic acid 1.2, liver tests normal, C-reactive protein 54.6, albumin 3.9. Serum ketones positive. Arterial blood gas: pH 7.33, pCO2 40.3, pO2 20.5. Toe X-ray: no bony destruction to suggest osteomyelitis; prior postoperative changes of remote left grade 2 amputation. Exam comments include difficulty palpating a strong dorsalis pedis pulse on the left; the foot is warm, not mottled or cyanotic; signs of reduced arterial perfusion such as hair loss and smooth skin were noted. Left third toe shows swelling with thickened cornified tissue, minimal surrounding erythema of the distal foot, ulceration with tissue loss at the distal third phalanx, and apparent bone exposure. Code status discussed; patient agrees to full resuscitative efforts. Health care decision-maker identified as daughter, Elke Pichardo. Review of Systems 2 Const: Denies: fever(s), chills, body aches or malaise ENMT: Denies: throat pain Card: Denies: chest pain, edema, pre-syncope or dyspnea on exertion Resp: Denies: dyspnea, productive cough, change in phlegm color or hemoptysis GI: Reports: diarrhea (chronic intermittent); Denies: abdominal pain, nausea, vomiting, constipation, hematochezia or melena : Denies: flank pain, difficulty urinating, urinary frequency or hematuria Musc: Reports: other (3rd L toe toenail loss); Denies: back pain, joint swelling or joint redness Skin/Breast: Reports: other (Redness, swelling, tissue loss L 3rd toe); Denies: rash or new lesions Neuro: Denies: headache(s) or confusion Medications/Allergies Home Medications ?Medication ?Instructions ?Recorded ?Confirmed ?Last Taken ?Type No Known Home Medications 11/09/24 090 04/04 Unknown History Allergies Allergy/AdvReac Type Severity Reaction Status Date / Time No Known Allergies Allergy Verified 05/20/24 09:46 PFSH Acute 2 PFSH: Medical History Peripheral neuropathy Amputation toe Right toe 2016 through level of [place] tarsal phalangeal joint Diabetic foot ulcer Type 2 diabetes mellitus Hx of medication noncompliance Surgical History History of amputation H/O hand surgery H/O knee surgery H/O neck surgery Family History Other Diabetes Hypertension Social History Smoking and tobacco/nicotine status: never used tobacco/nicotine Alcohol intake: former Substance/Drug Use: never Adopted: No Lives independently: Yes Housing: House Current occupational status: retired Current gender identity: Male Vitals/I&O/Wt Last Vital Signs Temp 98.6 F 11/09/24 10:25 Pulse 85 11/09/24 11:45 Resp 18 11/09/24 10:25 BP 143/88 11/09/24 11:45 Pulse Ox 96 11/09/24 11:45 O2 Del Method Room Air 11/09/24 11:45 Weight last 48 hrs Weight 100.698 kg Physical Exam 2 Const: COMMON NORMALS: patient oriented x3 and alert GENERAL APPEARANCE: c ooperative ORIENTATION/CONSCIOUSNESS: Yes awake HENMT: COMMON NORMALS: oropharynx normal Neck/C-Spine: COMMON NORMALS: no JVD Resp: COMMON NORMALS: normal respiratory effort and clear to auscultation bilaterally AUSCULTATION: clear to auscultation bilaterally Cardio: COMMON NORMALS: no JVD, regular rhythm, S1 normal heart sound present, S2 normal heart sound present and No murmurs present (Cardio) RHYTHM: regular rhythm HEART SOUNDS: S1 normal heart sound present and S2 normal heart sound present GI: COMMON NORMALS: Normal to inspection, nondistended, normoactive bowel sounds present, Soft to palpation and non-tender PALPATION: Yes Soft to palpation Extremity: NARRATIVE EXTREMITY EXAM: Loss of hair and smooth skin over anterior lower extremity suggestive of reduced arterial perfusion OTHER: Left third toe with swelling and thickened cornified tissue; minimal erythema of distal foot around the toe; ulceration and loss of tissue at distal left third phalanx with apparent bone exposure; dorsalis pedis pulse not strongly palpable; foot warm, not mottled or cyanotic Neuro: COMMON NORMALS: patient oriented x3 and moves all extremities S ENSORIUM/ORIENTATION: Yes alert Data 11/09/24 10:43 11/09/24 10:43 Micro: Microbiology 11/09/24 11:39 Blood Culture - Preliminary Blood SPECIMEN COLLECTED 11/09/24 11:30 Blood Culture - Preliminary Blood SPECIMEN COLLECTED A&P Assessment and plan 1. Gangrene of toe of left foot: Left third toe necrosis with ulceration and bone exposure : Left third toe necrotic with ulceration and apparent bone exposure; toe X-ray without bony destruction; prior remote left grade 2 amputation. Also reports prior amputations on the right. Reviewed vitals, CBC, CMP, CRP noted elevated. Reviewed toe x-ray, ED provider note, discussed with ED provider. Discussed with him diabetic foot infection but also possible PAD. - Podiatry consultation (Dr. Vincent) for evaluation; likely need for toe amputation discussed He denies any respiratory or chest pain or pressure limiting activity. Denies prior respiratory illness or sleep apnea. No signs of CHF. Will obtain baseline EKG. With mild proximal cellulitis, will continue to biotics, so far received vancomycin and Zosyn. Continue gram-negative and MRSA coverage. Obtain wound culture, MRSA PCR. Possible peripheral artery disease (PAD) : Concern for reduced arterial perfusion based on not palpable dorsalis pedis pulse, hair loss, and smooth skin; foot remains warm without mottling or cyanosis. Reviewed arterial duplex from 2021 at that time no significant stenosis. - Request arterial duplex ultrasound of the left lower extremity to assess arterial perfusion. Discussed with him in case of significant stenosis/loss of perfusion, may also require cardiovascular assessment and potential intervention to restore perfusion to allow for healing after amputation, otherwise if untreated PAD may have a risk of poor healing, recurrent/more proximal infection/necrosis. 2. Uncontrolled diabetes mellitus: Hyperglycemia in type 2 diabetes mellitus : Marked hyperglycemia (glucose 538 mg/dL) in the setting of known type 2 diabetes mellitus and medication nonuse; A1c pending. - Start insulin while hospitalized with sliding scale insulin and Lantus 10 units daily starting now. Monitor for risk of hypoglycemia. Hypoglycemia protocol. - Monitor [id number] glucose - Ordered hemoglobin A1c - Initiate consistent carbohydrate, cardiac diet Positive serum ketones : Serum ketones positive with ABG pH 7.33. - ABG obtained 3. Hyperglycemia: Severe hyperglycemia, with positive serum ketones, anion gap 18.8 bicarb 25 ABG pH minimally decreased 7.33. Normal lactic acid. 4. Ketonemia: As above, possible mild ketoacidosis pH coming back at 7.33 positive serum ketones. Received 10 units IV regular insulin in ED. Requesting POC glucose checks, sliding scale insulin subcutaneous and will add Lantus 10 units daily to start now. Reassess blood glucose. Reassess chemistry. Check magnesium. IV hydration, LR 75 mL/h. Monitor for risk of fluid overload. 5. Elevated blood pressure reading: Blood pressure 156/104 mmHg in ED; patient reports readings are often elevated in medical settings. Discussed with him additional monitoring and monitoring at home for possible hypertension. - Monitor blood pressures - Cardiac diet Plan: Elevated C-reactive protein : CRP 54.6 mg/L. Hospitalization bundle : Admission for management of hyperglycemia and left third toe necrosis with workup for possible PAD; code status and surrogate established. - Admit to inpatient service - Obtain baseline electrocardiogram (EKG) due to cardiovascular risk - Full code status confirmed - Identify daughter Elke Pichardo as health care decision-maker PDMP PDMP Reviewed: Not Reviewed Attestations 2 Medical Necessity Statement*: Admission over 2 midnights anticipated for assessment of management of gangrenous left third toe with severe hyperglycemia with uncontrolled diabetes possible underlying PAD and High MDM includes amount and/or complexity of data reviewed/ordered [ previous or external records, resulted lab(s)/test(s), ordered lab(s)/test(s) and other healthcare professional discussion] and described risk of complication, morbidity or mortality of management as documented Diagnoses Gangrene of toe of left foot I96 Uncontrolled diabetes mellitus Hyperglycemia R73.9 Ketonemia R79.89 Elevated blood pressure reading R03.0
--- NOTE | 2024-11-09 12:05 | PM.CONSULT ---
Providers/Reason For Consult Consulting Physician/Specialty*: Joann RoqueP.MBruce/podiatry Reason for Consult*: Left foot third toe gangrene History of Present Illness History of Present Illness Patient is a 64-year-old male who presented to the emergency department today over concerns of the left foot third digit nail. He states that he just noticed it this morning. Denies any specific injury to the area. He has a history of left hallux amputation. Patient has seen podiatry in the past although it has been many years. Podiatry was consulted to evaluate and provide further treatment recommendations. In the emergency department his blood sugars were found to be in excess of 500 mg/dL. Review of Systems General: Reports: 10 or more systems reviewed and unremarkable except in HPI and below Const: Denies: fever(s), chills, body aches or change in appetite Eyes: Denies: change in vision or blurry vision Card: Denies: chest pain, palpitations or irregular heart rhythm Resp: Denies: dyspnea GI: Denies: abdominal pain, nausea, vomiting or diarrhea Musc: Reports: joint stiffness Skin/Breast: Reports: non-healing lesions and lesions Neuro: Reports: numbness in extremities Medications/Allergies Home Medications ?Medication ?Instructions ?Recorded ?Confirmed ?Last Taken ?Type No Known Home Medications 11/09/24 11/09/24 Unknown History Allergies Allergy/AdvReac Type Severity Reaction Status Date / Time No Known Allergies Allergy Verified 05/20/24 09:46 Current Medications Generic Name Dose Route Start Last Admin Trade Name Freq PRN Reason Stop Dose Admin Sodium Chloride 1,000 mls @ 999 mls/hr 11/09/24 11:16 11/09/24 11:38 Sodium Chloride 0.9% IV 11/09/24 12:16 999 mls/hr .Q1H1M ONE Administration PFSH Acute PFSH: Medical History (Updated 11/09/24 @ 12:12 by Leonardo Ferguson MD) Peripheral neuropathy Amputation toe Right toe 2016 through level of [place] tarsal phalangeal joint Diabetic foot ulcer Type 2 diabetes mellitus Hx of medication noncompliance Surgical History History of amputation H/O hand surgery H/O knee surgery H/O neck surgery Family History Other Diabetes Hypertension Social History Smoking and tobacco/nicotine status: never used tobacco/nicotine Alcohol intake: former Substance/Drug Use: never Adopted: No Lives independently: Yes Housing: House Current occupational status: retired Current gender identity: Male Vitals/I&O/Wt Last Vital Signs Temp 98.6 F 11/09/24 10:25 Pulse 85 11/09/24 11:45 Resp 18 11/09/24 10:25 BP 143/88 11/09/24 11:45 Pulse Ox 96 11/09/24 11:45 O2 Del Method Room Air 11/09/24 11:45 Weight last 48 hrs Weight 222 lb Physical Exam Narrative: BELOW IS A FOCUSED LOWER EXTREMITY EXAM GENERAL: A&O x 3 VASCULAR: DP/PT pulses palpable +1/4 left foot, CFT intact <3 seconds to distal digits DERMATOLOGICAL: Left foot third digit with wet gangrene, necrosis, and mild active serous drainage. Positive [id number] to distal phalanx. Full-thickness ulceration dorsal aspect of left foot third digit measures 0.6 x 0.6 x 0.3 cm. Surrounding erythema extending to the level of the metatarsophalangeal joint. MUSCULOSKELETAL: Left hallux amputation noted. No gross musculoskeletal deformities otherwise. NEUROLOGICAL: Neurological sensation diminished to the affected foot and ankle consistent with peripheral neuropathy. IMAGIN-view x-rays of the left toe were taken in the emergency department and independently interpreted by me. These show soft tissue defect overlying the distal interphalangeal joint with erosive changes to the base of the distal phalanx dorsally. No subcutaneous emphysema noted. Findings are consistent with osteomyelitis. Data 11/09/24 10:43 11/09/24 10:43 Micro: Microbiology 11/09/24 11:39 Blood Culture - Preliminary Blood SPECIMEN COLLECTED 11/09/24 11:30 Blood Culture - Preliminary Blood SPECIMEN COLLECTED A&P Assessment and plan 1. Osteomyelitis: 2. Cellulitis: 3. Wet gangrene: 4. Hyperglycemia: Plan: Osteomyelitis -Plan for surgical intervention tomorrow 11/10/24 for incision bone cortex left foot third digit versus third toe amputation -Continue to trend inflammatory markers -Monitor wound for progression Wet Gangrene -Left foot third toe -Surgical intervention tomorrow 11/10/2024 -Close monitoring for systemic signs of infection -Will order arterial duplex while inpatient to assess for underlying PAD Cellulitis -Continue IV antibiotic therapy -Monitor erythema and drainage for progression Hyperglycemia -Management per primary team -Monitor perioperative glucose levels for surgical optimization SEPSIS workup: -WBC 6.51 -HR 92 -RR 18 -Tmax 98.6 -CRP 54.6 -ESR N/A Podiatry Surgical Plan: -NPO at midnight in preparation for surgery tomorrow 11/10/24 -Plan for incision bone cortex left foot third digit versus third toe amputation Podiatry Discharge Plan: -To be determined based on intraoperative findings and postoperative recovery PDMP PDMP Reviewed: Not Reviewed Coding Level of Care Code Acute Code for [facility] Fwd Diagnoses Osteomyelitis M86.9 Cellulitis L03.90 Wet gangrene I96 Hyperglycemia R73.9
--- NOTE | 2024-11-09 12:06 | USR_ITS ---
PROCEDURE INFORMATION: Exam: US Left Noninvasive Physiologic Study of the Lower Extremity Arteries, Limited Exam date and time: 11/09/2024 12:28 PM Age: 64 years old Clinical indication: Other: Left third toe necrosis; Additional info: With toe pressures TECHNIQUE: Imaging protocol: Left Limited bilateral noninvasive physiologic studies of lower extremity arteries. Waveforms were obtained and evaluated. Images were documented and archived. Exam is limited. COMPARISON: CT foot LT w con [id number] 11/04/2021 10:55 AM FINDINGS: Left: SANJAY 0.97. TBI 1.03. US/[place] segpressure [place] [id number] IMPRESSION: No evidence of stenosis or occlusion in the lower extremity.
--- NOTE | 2024-11-09 12:06 | USR_ITS ---
PROCEDURE INFORMATION: Exam: US Duplex Left Lower Extremity Arteries Or Arterial Bypass Grafts Exam date and time: 11/09/2024 1:13 PM Age: 64 years old Clinical indication: Other: Left third toe necrosis; Additional info: L 3rd toe necrosis TECHNIQUE: Imaging protocol: Left Real-time duplex scan of the arteries or arterial bypass grafts of the left lower extremity with 2-D mcclure scale, color Doppler flow and spectral waveform analysis. Images documented and saved. COMPARISON: US Lower Arterial 11/09/2024 12:28 PM FINDINGS: Left common femoral artery: No occlusion or significant stenosis. Normal waveform. Left superficial femoral artery: No occlusion or significant stenosis. Normal waveform. Left popliteal artery: Moderate to severe stenosis likely in the distal popliteal artery or tibioperoneal trunk. Normal waveform. Left calf/foot arteries: Monophasic waveforms. Dorsalis pedis artery is patent. Other findings: Ankle-brachial index of 0.96. US/[place] [id number] IMPRESSION: 1. Moderate to severe stenosis likely in the distal popliteal artery. No evidence of arterial occlusion. 2. Ankle-brachial index of 0.96.
[2024-11-09 12:09] VITALS: BMI 27.0
[2024-11-09 12:19] LABS: Estmated Average Glucose 332; Hemoglobin A1C 13.2 % (4.0-6.0)
[2024-11-09] MEDS: insulin glargine 100 units/1 mL 10 UNIT SUBCUT (12:33)
[2024-11-09 12:46] LABS: Magnesium 2.1 mg/dL (1.7-2.3)
--- NOTE | 2024-11-09 12:55 | PHA.VACGOAL ---
Vancomycin Goal - Goal Vancomycin Goal:: 15-20 mg/L Vancomycin Indication:: Osteo - Therapy Day of therpy:: Day []of [] . Actual body weight (kg): 222 lb - Data Labs: WBC 6.51 10^3/uL (3.29-11.43) 11/09/24 10:43 RBC 5.04 10^6/uL (3.85-5.65) 11/09/24 10:43 Hgb 14.20 g/dL (11.27-16.99) 11/09/24 10:43 Hct 42.5 % (37-53) 11/09/24 10:43 MCV 84.3 fl (82-101) 11/09/24 10:43 MCH 28.2 pg (27-33) 11/09/24 10:43 MCHC 33.4 g/dL (30-55) 11/09/24 10:43 RDW 11.8 % (12.1-15.1) L 11/09/24 10:43 Sodium 130 mmol/L (136-145) L 11/09/24 10:43 Potassium 4.8 mmol/L (3.5-5.1) 11/09/24 10:43 Chloride 91 mmol/L (98-107) L 11/09/24 10:43 Carbon Dioxide 25 mmol/L (22-29) 11/09/24 10:43 Anion Gap 18.8 (5-19) 11/09/24 10:43 BUN 19 mg/dL (8-23) 11/09/24 10:43 Creatinine 1.1 mg/dL (0.7-1.2) 11/09/24 10:43 GFR Calculation 67.0 mL/min (90-130) L 11/09/24 10:43 Treatment plan:: new consult Regimen:: LOAD WITH 3,000 MG AND CONTINUE MAINTENANCE DOSE OF 1500 MG Q12H PT WILL BE GETTING INFECTED TOE AMPUTATED TOMORROW <Himanshu Rodrigues - Last Filed: 11/09/24 12:55> - Therapy Day of therpy:: Day []of [] . - Data Labs: WBC 6.65 10^3/uL (3.29-11.43) 11/10/24 02:24 RBC 4.58 10^6/uL (3.85-5.65) 11/10/24 02:24 Hgb 12.80 g/dL (11.27-16.99) 11/10/24 02:24 Hct 38.6 % (37-53) 11/10/24 02:24 MCV 84.3 fl (82-101) 11/10/24 02:24 MCH 27.9 pg (27-33) 11/10/24 02:24 MCHC 33.2 g/dL (30-55) 11/10/24 02:24 RDW 11.9 % (12.1-15.1) L 11/10/24 02:24 Sodium 134 mmol/L (136-145) L 11/10/24 02:24 Potassium 4.1 mmol/L (3.5-5.1) 11/10/24 02:24 Chloride 100 mmol/L (98-107) 11/10/24 02:24 Carbon Dioxide 24 mmol/L (22-29) 11/10/24 02:24 Anion Gap 14.1 (5-19) 11/10/24 02:24 BUN 15 mg/dL (8-23) 11/10/24 02:24 Creatinine 0.8 mg/dL (0.7-1.2) 11/10/24 02:24 GFR Calculation 96.7 mL/min (90-130) 11/10/24 02:24 <Madhav Coronel - Last Filed: 11/10/24 07:14>
[2024-11-09] MEDS: vancomycin 1,750 MG/350 ML PIGGYBACK 175 MG IV (13:01)
--- NOTE | 2024-11-09 13:43 | ECG_ITS ---
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 Measurements Intervals [place] Rate: 71 P: 18 ME: 188 QRS: -14 QRSD: 84 T: 30 QT: 395 QTc: 431 Interpretive Statements SINUS RHYTHM NONSPECIFIC T-WAVE ABNORMALITY Compared to ECG 09/08/2015 14:29:09 T-wave abnormality now present Ventricular premature complex(es) no longer present Electronically Signed On 11-09-2024 13:45:25 CDT by Chele House M.D. [email or web address] [id number]
[2024-11-09 15:44] LABS: Blood Urea Nitrogen 19 mg/dL (8-23); Calcium 9.1 mg/dL (8.5-10.5); Carbon Dioxide 25 mmol/L (22-29); Chloride 95 mmol/L (98-107); Creatinine Clr Calc Pharmacy 105.4719; Glucose 287 mg/dL (65-115); Osmolality Calculated 285 mOsm/kg (285-295); Sodium 131 mmol/L (136-145)
[2024-11-09 15:52] VITALS: BP 153/82; PULSE 66; RESP 17; TEMP 36.8; O2SAT 96
[2024-11-09 15:57] LABS: MRSA PCR OZH (swab) NOT DETECTED (Negative)
[2024-11-09 16:05] LABS: Anion Gap 15.4 (5-19); Potassium 4.4 mmol/L (3.5-5.1)
--- NOTE | 2024-11-09 16:27 | USR_ITS ---
PROCEDURE INFORMATION: Exam: US Non-Invasive Physiologic Bilateral Lower Extremities Arteries, Complete Exam date and time: 11/09/2024 4:22 PM Age: 64 years old Clinical indication: Condition or disease; Peripheral vascular disease; Additional info: Pad--wound, perform abis TECHNIQUE: Imaging protocol: Complete bilateral noninvasive physiologic studies of lower extremity arteries, 3 or more levels or single level study with provocative functional maneuvers. Waveforms were obtained and evaluated. Images were documented and archived. Exam is complete. COMPARISON: [place] [id number] 11/09/2024 1:13 PM FINDINGS: Right femoral arteries: There is normal waveform morphology and amplitude. Right infrapopliteal arteries: There is normal waveform morphology and amplitude. Left femoral arteries: There is normal waveform morphology and amplitude. Left infrapopliteal arteries: There is normal waveform morphology and amplitude. Right Ankle-Brachial Index: 0.93 Left Ankle-Brachial Index: 0.93 Other findings: Toe brachial indices are 0.54 in the right and 1.02 on the left. US/CV segpressure LE [facility] [id number] IMPRESSION: 1. No evidence of stenosis or occlusion in the lower extremity. 2. Evidence of mild distal right disease with a toe brachial index of 0.54.
--- OUTSIDE RECORDS SUMMARY | 2024-11-09 16:35 | XMS_ITS | Clinical Summary ---
[facility] Organization [facility] Address [address] 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
--- OUTSIDE RECORDS SUMMARY | 2024-11-09 16:35 | XMS_ITS | Encounter Summary ---
Author Organization [facility] Address [address] [place] [address] Care Team Providers Care Residential Appliance Repair Technician Name Role Phone Unavailable Primary Care Provider Unavailabl e Encounter Details Date Type Department Care Team (Late st Contact Info) Description 04/18/2005 Outpatient Historical [facility] Orth[facility]- 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
--- OUTSIDE RECORDS SUMMARY | 2024-11-09 16:36 | XMS_ITS | Encounter Summary ---
Author Organization [facility] Address [address] [place] [address] Care Team Providers Care Shell Plater Name Role Phone Unavailable Primary Care Provider Unavailabl e Encounter Details Date Type Department Care Team (Latest Contact Info) Description 02/08/2003 Outpatient Historical [facility] Medicine- [address] [address] Clement Whitaker MD [address] [phone] ACUTE BRONCHITIS (Primary Dx) Social History Tobacco Use Types Packs/Day Years Used Date Smoking Tobacco: Never Assessed Sex and Gender Information Value Date Recorded Sex Assigned at Not on file 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
--- OUTSIDE RECORDS SUMMARY | 2024-11-09 16:36 | XMS_ITS | Encounter Summary ---
Author Organization [facility] Address [address] [place] [address] Care Team Providers Care Rear Load Truck Driver Name Role Phone Unavailable Primary Care Provider Unavailabl e Encounter Details Date Type Department Care Team (Latest Contact Info) Description 03/07/2005 Outpatient Historical [facility] Th[facility]at 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
--- OUTSIDE RECORDS SUMMARY | 2024-11-09 16:36 | XMS_ITS | Encounter Summary ---
Author Organization [facility] Address [address] [place] [address] Care Team Providers Care Project Engineer Name Role Phone Unavailable Primary Care Provider Unavailabl e Encounter Details Date Type Department Care Team (Latest Contact Info) Description 02/13/2005 Outpatient Historical [facility] Ophthalmology 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
--- OUTSIDE RECORDS SUMMARY | 2024-11-09 16:36 | XMS_ITS | Encounter Summary ---
Author Organization [facility] Address [address] [place] [address] Care Team Providers Care Emt/Paramedic Name Role Phone Unavailable Primary Care Provider Unavailabl e Encounter Details Date Type Department Care Team (Late st Contact Info) Description 03/02/2005 Outpatient Historical [facility] Ophthalmology 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
--- OUTSIDE RECORDS SUMMARY | 2024-11-09 16:36 | XMS_ITS | Encounter Summary ---
Author Organization [facility] Address [address] [place] [address] Care Team Providers Care Concert Or Lecture Hall Manager Name Role Phone Unavailable Primary Care Provider Unavailabl e Encounter Details Date Type Department Care Team (Latest Contact Info) Description 03/02/2005 Outpatient Historical [facility] Ophthalmology 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
--- OUTSIDE RECORDS SUMMARY | 2024-11-09 16:36 | XMS_ITS | Encounter Summary ---
Author Organization [facility] Address [address] [place] [address] Care Team Providers Care Diver'S Tender Name Role Phone Unavailable Primary Care Provider Unavailabl e Encounter Details Date Type Department Care Team (Late st Contact Info) Description 03/07/2005 Outpatient Historical [facility] Orthopedics- [address] [place] [address] Miguel Ángel Gusman MD [address] [place] [address] FX SHAFT RAD W ULNA-CLOSE (Primary Dx) Social History Tobacco Use Types Packs/Day Years Used Date Smoking Tobacco: Never Assessed Sex and Gender Information Value Date Recorded Sex Assigned at Not on file Legal Sex Male 3:26 AM PATIENT SERVICES SPECIALIST Gender Identity Not on file Sexual Orientation Not on file documented as of this encounter Plan of Treatment Not on file documented as of this encounter Visit Diagnoses Diagnosis Closed fracture of shaft of radius with ulna- Primary documented in this encounter
--- OUTSIDE RECORDS SUMMARY | 2024-11-09 16:37 | XMS_ITS | Encounter Summary ---
Author Organization [facility] Address [address] [place] [address] Care Team Providers Care Spring Floor Service Worker Name Role Phone Unavailable Primary Care Provider Unavailabl e Encounter Details Date Type Department Care Team (Latest Contact Info) Description 04/08/2001 Outpatient Historical [facility] Family Medicine [address] [phone] Edilberto England, DO NO ADDRESS ON FILE EXAM-MEDICOLEGAL REASONS (Primary Dx) Social History Tobacco Use Types Packs/Day Years Used Date Smoking Tobacco: Never Assessed Sex and Gender Information Value Date Recorded Sex Assigned at Not on file Legal Sex Male 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
--- OUTSIDE RECORDS SUMMARY | 2024-11-09 16:37 | XMS_ITS | Encounter Summary ---
Author Organization [facility] Address [address] [place] [address] Care Team Providers Care Bootmaker Name Role Phone Unavailable Primary Care Provider Unavailabl e Encounter Details Date Type Department Care Team (Latest Contact Info) Description 06/01/2002 Outpatient Historical [facility] Family Medicine- [place] [address] [place] [address] Yael Javier MD NO ADDRESS ON FILE ABN BLOOD CHEMISTRY NEC (Primary Dx) Social History Tobacco Use Types Packs/Day Years Used Date Smoking Tobacco: Never Assessed Sex and Gender Information Value Date Recorded Sex Assigned at Not on file Legal 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
--- OUTSIDE RECORDS SUMMARY | 2024-11-09 16:37 | XMS_ITS | Encounter Summary ---
Author Organization [facility] Address [address] [place] [address] Care Team Providers Care Safety Council Director Name Role Phone Unavailable Primary Care Provider Unavailabl e Encounter Details Date Type Department Care Team (Latest Contact Info) Description 07/06/2002 Outpatient Historical [facility] Family Medicine- [place] [address] [address] Yael Javier MD NO ADDRESS ON FILE HYPERLIPIDEMIA NEC/NOS (Primary Dx) Social History Tobacco Use Types Packs/Day Years Used Date Smoking Tobacco: Never Assessed Sex and Gender Information Value Date Recorded Sex Assigned at Not on file 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
--- OUTSIDE RECORDS SUMMARY | 2024-11-09 16:38 | XMS_ITS | Encounter Summary ---
Author Organization [facility] Address [address] [place] [address] Care Team Providers Care Woodwind Instruments Inspector Name Role Phone Unavailable Primary Care Provider Unavailabl e Encounter Details Date Type Department Care Team (Latest Contact Info) Description 02/05/2005 Outpatient Historical [facility] Ophthalmology [address] [place] [address] Vipul Brandt MD NO ADDRESS ON FILE Ischemic optic neuropthy (Primary Dx); SUPERFICIAL INJURY CORNEA; FX FACIAL BONE NEC-CLOSE ([facility]) Social History Tobacco Use Types Packs/Day Years Used Date Smoking Tobacco: Never Assessed Sex and Gender Information Value Date Recorded Sex Assigned at Not on file Legal Sex Male 3:26 AM ASSEMBLER CORNCOB PIPES Gender Identity Not on file Sexual Orientation Not on file documented as of this encounter Plan of Treatment Not on file documented as of this encounter Visit Diagnoses Diagnosis Ischemic optic neuropthy- Primary Ischemic optic neuropathy Superficial injury of cornea Other facial bones, closed fracture documented in this encounter
--- OUTSIDE RECORDS SUMMARY | 2024-11-09 16:38 | XMS_ITS | Encounter Summary ---
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
--- OUTSIDE RECORDS SUMMARY | 2024-11-09 16:38 | XMS_ITS | Encounter Summary ---
Author Organization [facility] Address [address] [place] [address] Care Team Providers Care Carver Hand Name Role Phone Unavailable Primary Care Provider Unavailabl e Encounter Details Date Type Department Care Team (Latest Contact Info) Description 01/30/2005 Outpatient Historical [facility] Operating Room [address] [place] [address] Magen Moreno MD NO ADDRESS ON FILE FX ORBITAL FLOOR-CLOSED (CMS/HCC) (Primary Dx) Social History Tobacco Use Types Packs/Day Years Used Date Smoking Tobacco: Never Assessed Sex and Gender Information Value Date Recorded Sex Assigned at Not on file Legal Sex Male 3:26 AM TOP CAGER Gender Identity Not on file Sexual Orientation Not on file documented as of this encounter Plan of Treatment Not on file documented as of this encounter Visit Diagnoses Diagnosis Orbital floor (blow-out), closed fracture (CMS/HCC)- Primary Orbital floor (blow-out), closed fracture documented in this encounter
--- OUTSIDE RECORDS SUMMARY | 2024-11-09 16:38 | XMS_ITS | Encounter Summary ---
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
--- OUTSIDE RECORDS SUMMARY | 2024-11-09 16:38 | XMS_ITS | Encounter Summary ---
Author Organization [facility] Address [address] [place] [address] Care Team Providers Care Machine Operator Hay Stacker Name Role Phone Unavailable Primary Care Provider Unavailabl e Encounter Details Date Type Department Care Team (Late st Contact Info) Description 02/05/2005 Outpatient Historical [facility] Orthopedics- 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
--- OUTSIDE RECORDS SUMMARY | 2024-11-09 16:38 | XMS_ITS | Encounter Summary ---
Author Organization [facility] Address [address] [place] [address] Care Team Providers Care Outdoor Recreation Specialist Name Role Phone Unavailable Primary Care Provider Unavailabl e Encounter Details Date Type Department Care Team (Latest Contact Info) Description 01/29/2005 Outpatient Historical [facility] Th[facility]at 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
--- OUTSIDE RECORDS SUMMARY | 2024-11-09 16:38 | XMS_ITS | Encounter Summary ---
Author Organization [facility] Address [address] [place] [address] Care Team Providers Care Cut Out Stitcher Name Role Phone Unavailable Primary Care Provider Unavailabl e Encounter Details Date Type Department Care Team (Latest Contact Info) Description 02/13/2005 Outpatient Historical [facility] [place] [address] [place] [address] Madhav Thayer MD [address] [place] [address] CLOSE SKULL FX NEC W/O COMA (CMS/HCC) (Primary Dx) Social History Tobacco Use Types Packs/Day Years Used Date Smoking Tobacco: Never Assessed Sex and Gender Information Value Date Recorded Sex Assigned at Not on file Legal Sex Male 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
--- OUTSIDE RECORDS SUMMARY | 2024-11-09 16:38 | XMS_ITS | Encounter Summary ---
Author Organization [facility] Address [address] [place] [address] Care Team Providers Care Glove Machine Operator Name Role Phone Unavailable Primary Care Provider Unavailabl e Encounter Details Date Type Department Care Team (Latest Contact Info) Description 04/08/2001 Outpatient Historical [facility] General Surgery [address] [address] [place] [address] [place] [address] [facility] [address] [place] [address] OPEN WOUND OF FINGER (Primary Dx) Social History Tobacco Use Types Packs/Day Years Used Date Smoking Tobacco: Never Assessed Sex and Gender Information Value Date Recorded Sex Assigned at Not on file Legal Sex Male 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
--- OUTSIDE RECORDS SUMMARY | 2024-11-09 16:38 | XMS_ITS | Encounter Summary ---
Author Organization [facility] Address [address] [place] [address] Care Team Providers Care Carpenter Supervisor Wooden Ship Name Role Phone Unavailable Primary Care Provider Unavailabl e Encounter Details Date Type Department Care Team (Late st Contact Info) Description 09/30/2000 Outpatient Historical [facility] Social History Tobacco Use Types Packs/Day Years Used Date Smoking Tobacco: Never Assessed Sex and Gender Information Value Date Recorded Sex Assigned at Not on file Legal Sex Male 3:26 AM SUPERVISOR CARTON [employer] CAN SUPPLY Gender Identity Not on file Sexual Orientation Not on file documented as of this encounter Plan of Treatment Not on file documented as of this encounter Visit Diagnoses Not on filedocumented in this encounter
--- OUTSIDE RECORDS SUMMARY | 2024-11-09 16:39 | XMS_ITS | Encounter Summary ---
Author Organization [facility] Address [address] [place] [address] Care Team Providers Care Assessment Consultant Name Role Phone Unavailable Primary Care Provider Unavailabl e Encounter Details Date Type Department Care Team (Latest Contact Info) Description 01/20/2005 Inpatient Historical [facility] Operating Room [address] [place] [address] Hemant Preston MD [address] [place] [phone] OCULAR LAC W/O PROLAPSE (Primary Dx) Social History Tobacco Use Types Packs/Day Years Used Date Smoking Tobacco: Never Assessed Sex and Gender Information Value Date Recorded Sex Assigned at Not on file Legal Sex Male 3:26 AM [employer] [employer] Gender Identity Not on file Sexual Orientation Not on file documented as of this encounter Plan of Treatment Not on file documented as of this encounter Procedures Procedure Name Priority Date/Time Associated Diagnosis Comments CBC WITH DIFFERENTIAL Routine 01/23/2005 3:29 AM [facility] [employer] [facility] BASIC METABOLIC PANEL Routine 01/23/2005 3:29 AM [facility] [employer] [facility] CBC WITH DIFFERENTIAL Routine 01/21/2005 2:27 AM [employer] [employer] [facility] BASIC METABOLIC PANEL Routine 01/21/2005 2:27 AM [facility] [employer] [facility] POC BLOOD GAS, LYTES AND H+H Routine 01/20/2005 11:39 AM [employer] [employer] [facility] CBC WITH DIFFERENTIAL Routine 01/20/2005 5:15 AM [facility] [employer] [facility] BASIC METABOLIC PANEL Routine 01/20/2005 5:15 AM [facility] [employer] [facility] POC BLOOD GAS, LYTES AND H+H Routine 01/20/2005 3:35 AM [employer] [employer] [facility] POC BLOOD GAS, LYTES AND H+H Routine 01/19/2005 8:37 PM [facility] [employer] [facility] CBC WITH DIFFERENTIAL Routine 01/19/2005 8:30 PM [facility] [employer] [facility] PROTIME-INR Routine 01/19/2005 8:30 PM [facility] [employer] [facility] ETHANOL LEVEL Routine 01/19/2005 8:30 PM [facility] [employer] [facility] BASIC METABOLIC PANEL Routine 01/19/2005 8:30 PM [facility] [employer] [facility] documented in this encounter Results * (ABNORMAL) CBC WITH DIFFERENTIAL (01/23/2005 3:29 AM [facility] [employer] [facility]) WBC 10.9 4.5 - 11.0 K/ul INTERFACE [...] 0.2 K/ul INTERFACE SYSTEM 01/23/2005 3:29 AM [facility] [employer] [facility] Hemant Preston MD HEMATOLOGY ORDERABLES Final Result Performing Organization Address [facility] Phone Number INTERFACE SYSTEM Refer to clinic/hospital department * (ABNORMAL) BASIC METABOLIC PANEL (01/23/2005 3:29 AM [facility] [employer] [facility]) GLUCOSE 223(H) 70 - 110 mg/dL INTERFACE [...] 10.5 mg/dL INTERFACE SYSTEM 01/23/2005 3:29 AM [facility] [employer] [facility] Hemant Preston MD CHEMISTRY ORDERABLES Final Result Performing Organization Address [facility] Phone Number INTERFACE SYSTEM Refer to clinic/hospital department * (ABNORMAL) CBC WITH DIFFERENTIAL (01/21/2005 2:27 AM [facility] [employer] [facility]) WBC 15.1(H) 4.5 - 11.0 K/ul INTERFACE [...] Smear Reviewed INTERFACE SYSTEM 01/21/2005 2:27 AM [facility] [employer] [facility] us Hemant Preston MD HEMATOLOGY ORDERABLES Final Result Performing Organization Address [facility] Co de Phone Number INTERFACE SYSTEM Refer to clinic/hospital department * (ABNORMAL) BASIC METABOLIC PANEL (01/21/2005 2:27 AM [facility] [employer] [facility]) GLUCOSE 262(H) 70 - 110 mg/dL INTERFACE [...] 10.5 mg/dL INTERFACE SYSTEM 01/21/2005 2:27 AM [employer] [employer] [facility] us Hemant Preston MD CHEMISTRY ORDERABLES Final Result Performing Organization Address [place]/[facility] Co de Phone Number INTERFACE SYSTEM Refer to clinic/hospital department * (ABNORMAL) POC ISTAT EG 7+ (01/20/2005 11:39 AM [facility] [employer] [facility]) SPECIMEN TYPE Arterial INTERF MAUREEN SYSTEM Comment: [...] mmol/l INTERFACE SYSTEM 01/20/2005 11:3 9 AM [employer] [employer] [facility] us Physician Sj Ed POINT OF CARE TESTING COM Final Result INTERFACE SYSTEM Refer to clinic/hospital department * (ABNORMAL) BASIC METABOLIC PANEL (01/20/2005 5:15 AM [employer] [employer] [facility]) GLUCOSE 345(H) 70 - 110 mg/dL INTERFACE [...] 10.5 mg/dL INTERFACE SYSTEM 01/20/2005 5:15 AM [employer] [employer] [facility] Hemant Preston MD CHEMISTRY ORDERABLES Final Result INTERFACE SYSTEM Refer to clinic/hospital department * (ABNORMAL) CBC WITH DIFFERENTIAL (01/20/2005 5:15 AM [facility] [employer] [facility]) WBC 16.6(H) 4.5 - 11.0 K/ul INTERFACE [...] Automated Diff INTERFACE SYSTEM 01/20/2005 5:15 AM [employer] [employer] [facility] Hemant Preston MD HEMATOLOGY ORDERABLES Final Result INTERFACE SYSTEM Refer to clinic/hospital department * (ABNORMAL) POC ISTAT EG 7+ (01/20/2005 3:35 AM [employer] [employer] [facility]) SPECIMEN TYPE Arterial INTERF MAUREEN SYSTEM Comment: [...] 1.32 mmol/l INTERFACE SYSTEM 01/20/2005 3:35 AM [employer] [employer] us Physician Sj Ed POINT OF CARE TESTING COM Final Result INTERFACE SYSTEM Refer to clinic/hospital department * (ABNORMAL) POC ISTAT EG 7+ (01/19/2005 8:37 PM [employer] [employer] [facility]) SPECIMEN TYPE Arterial INTERF MAUREEN SYSTEM Comment: [...] 1.32 mmol/l INTERFACE SYSTEM 01/19/2005 8:37 PM [employer] [employer] [facility] Physician Sj Ed POINT OF CARE TESTING COM Final Result Performing Organization Address [facility] de Phone Number INTERFACE SYSTEM Refer to clinic/hospital department * PROTIME-INR (01/19/2005 8:30 PM [facility] [employer] [facility]) PROTIME 13.9 12.6 - 14.9 Secs INTERFACE SYSTEM Comment: As of 04 note change in normal range. INR 1.0 INTERFACE SYSTEM Comment: Expected Values for INR: DVT/PE Goal INR 2.5; range 2.0 - 3.0 Valve Replacement Tissue Goal INR 2.5; range 2.0 - 3.0 Mechanical Goal INR 3.0; range 2.5 - 3.5 POST-WA Goal INR 2.5; range 2.0 - 3.0 or Goal 3.0; range 2.5 - 3.5 Atrial Fibrillation Goal INR 2.5; range 2.0 - 3.0 Ischemic Stroke Goal INR 2.5; range 2.0 - 3.0 For additional information see Guidelines for Anticoagulation available from the pharmacy Joyce Iniguez Pharm D. 01/19/2005 8:30 PM [facility] [employer] [facility] Physician Ed HEMATOLOGY ORDERABLES Final Resu lt Performing Organization Address [place]/[facility] Co de Phone Number INTERFACE SYSTEM Refer to clinic/hospital department * ETHANOL LEVEL (01/19/2005 8:30 PM [facility] [employer] [facility]) ETHANOL <10 <=10 mg/dL INTERFACE SYSTEM Comment:Moderate to gross he molysis 01/19/2005 8:30 PM [employer] [employer] Physician Sj Ed CHEMISTRY ORDERABLES Final Resul t INTERFACE SYSTEM Refer to clinic/hospital department * (ABNORMAL) CBC WITH DIFFERENTIAL (01/19/2005 8:30 PM [facility] [employer] [facility]) WBC 19.2(H) 4.5 - 11.0 K/ul INTERFACE [...] Automated Diff INTERFACE SYSTEM 01/19/2005 8:30 PM [employer] [employer] Physician Ed HEMATOLOGY ORDERABLES Final Resu lt INTERFACE SYSTEM Refer to clinic/hospital department * (ABNORMAL) BASIC METABOLIC PANEL (01/19/2005 8:30 PM [employer] [employer] [facility]) GLUCOSE 376(H) 70 - 110 mg/dL INTERFACE [...] 10.5 mg/dL INTERFACE SYSTEM 01/19/2005 8:30 PM [employer] us Physician Sj Ed CHEMISTRY ORDERABLES Final Resul t INTERFACE SYSTEM Refer to clinic/hospital department documented in this encounter Visit Diagnoses Diagnosis Ocular laceration without prolapse of intraocular tissue- Primary documented in this encounter
[2024-11-09 20:00] VITALS: BP 154/80; PULSE 64; RESP 16; TEMP 36.9; O2SAT 93
[2024-11-10] VITALS (11 sets, daily range): BP systolic 128–166; BP diastolic 69–82; PULSE 57–69; RESP 15–17; TEMP 36.1–36.8; O2SAT 93–98
[2024-11-10 03:21] LABS: Hematocrit 38.6 % (37-53); Hemoglobin 12.80 g/dL (11.27-16.99); Mean Corpuscular HGB Conc 33.2 g/dL (30-55); Mean Corpuscular Hemoglobin 27.9 pg (27-33); Mean Corpuscular Volume 84.3 fl (82-101); Nucleated Red Blood Cells % 0 %; Platelet Count 238 10^3/cmm (157-399); Red Blood Count 4.58 10^6/uL (3.85-5.65); White Blood Count 6.65 10^3/uL (3.29-11.43)
[2024-11-10 03:57] LABS: Anion Gap 14.1 (5-19); Blood Urea Nitrogen 15 mg/dL (8-23); Calcium 8.7 mg/dL (8.5-10.5); Carbon Dioxide 24 mmol/L (22-29); Chloride 100 mmol/L (98-107); Creatinine Clr Calc Pharmacy 118.6559; Glucose 206 mg/dL (65-115); Osmolality Calculated 285 mOsm/kg (285-295); Potassium 4.1 mmol/L (3.5-5.1); Sodium 134 mmol/L (136-145)
[2024-11-10] MEDS: piperacillin-tazobactam 3.375 GM in sodium chloride 0.9% (plus) 50 ML IV ×3 (04:29→20:37)
[2024-11-10] MEDS: insulin regular-human 100 units/1 mL 10 UNIT SUBCUT (07:32)
--- NOTE | 2024-11-10 08:03 | P.HPUD_ITS ---
Surgery/Procedure H&P Update DATE OF PROCEDURE: November 10, 2024 DATE H&P PERFORMED: 11/09/24 H&P UPDATE INFORMATION: I have reviewed H&P completed within last 30 days, I have examined patient prior to procedure, No changes to prior documentation, H&P is in [facility] EMR on date indicated and Risks and benefits of the procedure reviewed PLANNED PROCEDURE: Operation Date: 11/10/24 09:05 Proposed Procedures p Amputation Toe/s-3rd toe(Left) - Florencio Roberts DPM
--- NOTE | 2024-11-10 08:09 | P.PN_ITS ---
Subjective 2 Subjective: He reports he is doing all right this morning. No trouble breathing. No complaints. He is awaiting surgery on his toe. Vitals/I&O/Wt Last Vital Signs Temp 98.3 F 11/10/24 04:00 Pulse 69 11/10/24 04:00 Resp 16 11/10/24 04:00 BP 148/72 11/10/24 04:00 Pulse Ox 98 11/10/24 04:00 O2 Del Method Room Air 11/10/24 04:00 11/09/24 11/10/24 11/10/24 22:59 06:59 14:59 Intake Total 640 / 0539.130 5886 / 3056.668 Output Total 200 / 200 300 / 500 Balance 440 / 9455.306 8564 / 2556.668 Weight last 48 hrs Weight 98.43 kg Weight 100.698 kg Weight 100.698 kg Physical Exam 2 Const: COMMON NORMALS: patient oriented x3 and alert GENERAL APPEARANCE: c ooperative ORIENTATION/CONSCIOUSNESS: Yes awake HENMT: COMMON NORMALS: oropharynx normal Neck/C-Spine: COMMON NORMALS: no JVD Resp: COMMON NORMALS: normal respiratory effort and clear to auscultation bilaterally AUSCULTATION: clear to auscultation bilaterally Cardio: COMMON NORMALS: no JVD, regular rhythm, S1 normal heart sound present, S2 normal heart sound present and No murmurs present (Cardio) RHYTHM: regular rhythm HEART SOUNDS: S1 normal heart sound present and S2 normal heart sound present GI: COMMON NORMALS: Normal to inspection, nondistended, normoactive bowel sounds present, Soft to palpation and non-tender PALPATION: Yes Soft to palpation Extremity: NARRATIVE EXTREMITY EXAM: Loss of hair and smooth skin over anterior lower extremity suggestive of reduced arterial perfusion OTHER: Left third toe with swelling and thickened cornified tissue; minimal erythema of distal foot around the toe; ulceration and loss of tissue at distal left third phalanx with apparent bone exposure; dorsalis pedis pulse not strongly palpable; foot warm, not mottled or cyanotic Neuro: COMMON NORMALS: patient oriented x3 and moves all extremities S ENSORIUM/ORIENTATION: Yes alert Data 11/10/24 02:24 11/10/24 02:24 Micro: Microbiology 11/09/24 11:39 Blood Culture - Preliminary Blood SPECIMEN COLLECTED 11/09/24 11:30 Blood Culture - Preliminary Blood SPECIMEN COLLECTED A&P Assessment and plan 1. Gangrene of toe of left foot: Awaiting surgical intervention. Doing well this morning. Reviewed arterial duplex ultrasound and segmental pressures ultrasound, discussed with him results, noted likely mild PAD. Discussed continued optimization of blood glucose control with noted uncontrolled diabetes A1c reviewed, discussed with him noted 13.2. Also discussed with him possible hypertension and need for further blood pressure monitoring and long-term optimization. Reviewed vitals, CBC, reviewed MRSA PCR. Continues with empiric antibiotic coverage with Zosyn, vancomycin currently. After Completed surgical intervention likely can discontinue vancomycin. Monitor for risk of YVETTE with kidney injury, reviewed chemistry. Reviewed podiatry note. Discussed with nursing, case packer. Possible peripheral artery disease (PAD) : Likely presence of mild PAD discussed with him. Long-term if he will be willing consider antiplatelet medication and statin. Discussed with him need for continued optimization of risk factors. Will need to follow-up with PCP. 2. Uncontrolled diabetes mellitus: Hyperglycemia in type 2 diabetes mellitus : Reviewed glucose, anion gap improved 14.1 bicarb 24. Mild ketoacidosis resolved. Blood glucose with improvement this morning down to 206. Currently on 10 units Lantus, awaiting surgery. Previously 22 units Lantus. Discussed with him we will need to resume insulin after discharge. He is concerned about coverage by his insurance. E-prescribed insulin sent to [facility] pharmacy to see that it gets approved, discussed with case packer. - Start insulin while hospitalized with sliding scale insulin and Lantus 10 units daily starting now. Monitor for risk of hypoglycemia. Hypoglycemia protocol. - Monitor ovqcm-jw-lipo glucose - consistent carbohydrate, cardiac diet Positive serum ketones : On presentation likely mild ketoacidosis with serum ketones positive with ABG pH 7.33. Will stop IV fluid. 3. Hyperglycemia: Severe hyperglycemia, with positive serum ketones, anion gap 18.8 bicarb 25 ABG pH minimally decreased 7.33. Normal lactic acid. 4. Ketonemia: As above, possible mild ketoacidosis pH coming back at 7.33 positive serum ketones. Resolved. Continue insulin. Stop IV fluid. Reviewed chemistry. Reviewed magnesium. 5. Elevated blood pressure reading: With improvement, but still fluctuating, blood pressure this morning 148/72 preoperatively. Continue to monitor. Discussed with him need for continued monitoring and follow-up as he likely may have underlying hypertension which will need long-term optimization. - Monitor blood pressures - Cardiac consistent carb diet once resumed Plan: Elevated C-reactive protein : CRP 54.6 mg/L. Hospitalization bundle : Admission for management of hyperglycemia and left third toe necrosis with workup for possible PAD; code status and surrogate established. - Admit to inpatient service - Obtain baseline electrocardiogram (EKG) due to cardiovascular risk - Full code status confirmed - Identify daughter Elke Pichardo as health care decision-maker PDMP PDMP Reviewed: Not Reviewed Attestations 2 Medical Necessity Statement*: Continue admission for assessment management of necrosis with diabetic infection and surrounding cellulitis of third left toe and proximal foot and gentleman with untreated diabetes, bone exposure with likely osteomyelitis. and High MDM includes amount and/or complexity of data reviewed/ordered [ previous or external records, resulted lab(s)/test(s), ordered lab(s)/test(s) and other healthcare professional discussion] and described risk of complication, morbidity or mortality of management as documented Diagnoses Gangrene of toe of left foot I96 Uncontrolled diabetes mellitus E11.65 Diabetes mellitus type: type 2 Glycemic state: with hyperglycemia Hyperglycemia R73.9 Ketonemia R79.89 Elevated blood pressure reading R03.0
[2024-11-10] MEDS: BUPivacaine 0.5% INJ 30 mL INJECTION (09:08)
--- NOTE | 2024-11-10 09:12 | PC.CHAP ---
Pastoral Care Encounter/Spiritual Assessment Type of Contact [] Declined information resource consultant visit [] Patient/Family/Request visit [] Outpatient visit [] Follow-up visit [] Physician referral [] Code/Alert [] Routine visit [] Staff referral [] Actively dying [] Patient sleeping [] Family support [] [x] Out of room [] Palliative care [] [] Receiving care in room [] Pre-surgical visit [] Trauma [] Long length of stay [] ICU visit [] Other: Relational/Emotional Strength [] Patient feels connected with others/family/visitors/staff [] Distress [] Loneliness/isolation [] Abandonment Spirituality of Patient [] Person of [place] [] Attends Mormon of their [place] [] Believes in Prayer [] Reads Bible or Taoism materials [] There are Spiritual issues to be addressed Histologist Technologist Interventions [] Prayer [] Active listening [] Non-anxious presence [] Spiritual/emotional support [] Crisis/trauma care [] Spiritual counseling [] Bereavement support [] Provided bereavement packet [] Provided Bible/devotional materials [] Provided toy/stuffed animal, coloring book to patient or family member [] Provided Communion [] Anointing/[place] [] Salvation [] Completed spiritual assessment [] Other: Impact on Illness or Injury [] Angry [] Fearful [] Anxious [] Often cries [] Exhaustion [] Unable to work [] Unable to attend adventist [] Unable to walk/stand [] Unable to read [] Unable to drive [] Unable to eat/drink [] Unable to sleep [] Unable to be with family [] Patient intubated [] Other: Summary Time spent with patient Pastoral Care Encounter/Spiritual Assessment Type of Contact [] Declined information resource consultant visit [] Patient/Family/Request visit [] Outpatient visit [] Follow-up visit [] Physician referral [] Code/Alert [] Routine visit [] Staff referral [] Actively dying [] Patient sleeping [] Family support [] [] Out of room [] Palliative care [] [] Receiving care in room [] Pre-surgical visit [] Trauma [] Long length of stay [] ICU visit [] Other: Relational/Emotional Strength [] Patient feels connected with others/family/visitors/staff [] Distress [] Loneliness/isolation [] Abandonment Spirituality of Patient [] Person of [place] [] Attends Mormon of their [place] [] Believes in Prayer [] Reads Bible or Taoism materials [] There are Spiritual issues to be addressed Histologist Technologist Interventions [] Prayer [] Active listening [] Non-anxious presence [] Spiritual/emotional support [] Crisis/trauma care [] Spiritual counseling [] Bereavement support [] Provided bereavement packet [] Provided Bible/devotional materials [] Provided toy/stuffed animal, coloring book to patient or family member [] Provided Communion [] Anointing/[place] [] Salvation [] Completed spiritual assessment [] Other: Impact on Illness or Injury [] Angry [] Fearful [] Anxious [] Often cries [] Exhaustion [] Unable to work [] Unable to attend adventist [] Unable to walk/stand [] Unable to read [] Unable to drive [] Unable to eat/drink [] Unable to sleep [] Unable to be with family [] Patient intubated [] Other: Summary Time spent with patient
--- NOTE | 2024-11-10 09:48 | PM.OP ---
Operative Report Date of procedure: November 10, 2024 Surgeon: Florencio Roberts DPM Procedure: Date of procedure: 11-10-24 Pre-op diagnosis: Left foot third digit Post-op diagnosis: Same Post-op findings: Abscess left third digit distally with gangrenous changes Procedure done: Left foot third digit amputation CPT 43891 Implants: None Specimens removed: Left foot third digit toe Surgeon: Dr. Florencio Roberts DPM Stripper Machine Operator: Yovany Estimated blood loss: 3 cc Tourniquet time: 13 minutes Complications: None The patient presents with a severe foot infection involving left foot third digit, characterized by erythema, swelling, and drainage. The infection is complicated by underlying conditions, including diabetes, PVD, which have contributed to the progression of the infection despite conservative management. Preoperative imaging and laboratory results indicate osteomyelitis, abscess formation, necessitating surgical intervention. The planned procedure is intended to address the infection, debride necrotic tissue, and, if necessary, assess the viability of surrounding structures to prevent further complications. The patient has been NPO since midnight. The history has been reviewed and the history and physical is current. The signed consent was confirmed and placed in the patient chart. Patient imaging has been reviewed and is consistent with the diagnosis. Under mild sedation, the patient was brought into the operating room and placed on the table in the supine position. Patient is receiving antibiotics around the clock on the floor, Therefore, additional antibiotic prophylaxix was not administered. MAC sedation was then performed by the anesthesiateam. A pneumatic tourniquet was then placed about the left ankle. A local field block was performed using 0.5% Marcaine plain the operative extremity was then prepped and draped in the usual fashion. After prep, the following procedure was then performed. Attention was directed to the left foot third digit where an abscess was noted to distal aspect of the third digit. Cultures aerobic and anaerobic were taken at this point sent to micro for ID and sensitivity. Penetrating towel clamp was used to dress the distal aspect of the digit before #15 blade was used to make a circumferential incision around the third digit at the base of the digit. Dissection was carried down to the level of the metatarsophalangeal joint. The digit was dissected free from attachments and passed from the operative field be sent a specimen. Remaining tissue appeared healthy and viable in nature. Site was irrigated with copious amounts of sterile saline. Tissue was reapproximated for closure using 3-0 nylon in simple interrupted fashion. Tourniquet was let down and good hyperemic response was noted to all remaining digits of the left foot. Incision was dressed with Xeroform, 4 x 4 gauze, Kerlix, Nasir. The patient tolerated the procedure and anesthesia well and without complication. The patient was transported from the operating room to the recovery room with vital signs stable and vascular status intact to all digits of the left foot. Thepatient was instructed to remain minimal weightbearing to the operative extremity, to keep surgical dressing clean, dry and intact. The patient will be transferred back to the floor once anesthesia criteria is met. I will continue to round on and follow the patient in the inpatientsetting and provide recommendations to stabilize the patient for discharge.
--- NOTE | 2024-11-10 10:00 | ANE.PACU2 ---
Inpatient post-anesthesia follow up: Airway intact: Yes Vital signs: Temperature 97.8 F Pulse Rate 59 Respiratory Rate 16 Blood Pressure 159/82 Pulse Oximetry 96 Oxygen Delivery Me thod Room Air Oxygen Flow Rate Fraction of Inspir ed Oxygen Hydration adequate: Yes Nausea and vomiting: No Pain level: 1 Mental status: Baseline
[2024-11-11] VITALS: BP 130/62; PULSE 70; RESP 16; TEMP 36.7; O2SAT 97
[2024-11-11 04:00] VITALS: BP 140/69; PULSE 64; RESP 16; TEMP 36.8; O2SAT 94
[2024-11-11] MEDS: piperacillin-tazobactam 3.375 GM in sodium chloride 0.9% (plus) 50 ML IV (04:17)
[2024-11-11 05:37] LABS: Hematocrit 39.3 % (37-53); Hemoglobin 13.10 g/dL (11.27-16.99); Mean Corpuscular HGB Conc 33.3 g/dL (30-55); Mean Corpuscular Hemoglobin 27.9 pg (27-33); Mean Corpuscular Volume 83.6 fl (82-101); Nucleated Red Blood Cells % 0 %; Platelet Count 226 10^3/cmm (157-399); Red Blood Count 4.70 10^6/uL (3.85-5.65); White Blood Count 6.70 10^3/uL (3.29-11.43)
[2024-11-11 06:00] LABS: Anion Gap 15.7 (5-19); Blood Urea Nitrogen 13 mg/dL (8-23); Calcium 8.8 mg/dL (8.5-10.5); Carbon Dioxide 24 mmol/L (22-29); Chloride 99 mmol/L (98-107); Creatinine Clr Calc Pharmacy 115.8583; Glucose 310 mg/dL (65-115); Osmolality Calculated 290 mOsm/kg (285-295); Potassium 4.7 mmol/L (3.5-5.1); Sodium 134 mmol/L (136-145)
--- NOTE | 2024-11-11 07:06 | PM.PN ---
Subjective Subjective: Day 1 status post left foot third digit amputation. No overnight events. Doing well. Vitals/I&O/Wt Last Vital Signs Temp 98.2 F 11/11/24 04:00 Pulse 64 11/11/24 04:00 Resp 16 11/11/24 04:00 BP 140/69 11/11/24 04:00 Pulse Ox 94 11/11/24 04:00 O2 Del Method Room Air 11/11/24 00:00 11/10/24 11/11/24 11/11/24 22:59 06:59 14:59 Intake Total 1585 / 1875 550 / 2425 Output Total 450 / 453 Balance 1585 / 1872 100 / 1972 Weight last 48 hrs Weight 210 lb Weight 217 lb Weight 222 lb Weight 222 lb Physical Exam Narrative: BELOW IS A FOCUSED LOWER EXTREMITY EXAM GENERAL: A&O x 3 VASCULAR: DP/PT pulses palpable +1/4 left foot, CFT intact <3 seconds to distal digits DERMATOLOGICAL: Surgical dressing clean, dry, intact to left foot. No strikethrough noted MUSCULOSKELETAL: Left hallux amputation noted. No gross musculoskeletal deformities otherwise. NEUROLOGICAL: Neurological sensation diminished to the affected foot and ankle consistent with peripheral neuropathy. IMAGIN-view x-rays of the left toe were taken in the emergency department and independently interpreted by me. These show soft tissue defect overlying the distal interphalangeal joint with erosive changes to the base of the distal phalanx dorsally. No subcutaneous emphysema noted. Findings are consistent with osteomyelitis. Data 11/11/24 05:13 11/11/24 05:13 Micro: Microbiology 11/09/24 11:39 Blood Culture - Preliminary Blood NEGATIVE TO DATE 11/09/24 11:30 Blood Culture - Preliminary Blood NEGATIVE TO DATE A&P Assessment and plan 1. Osteomyelitis: 2. Cellulitis: 3. Wet gangrene: 4. Hyperglycemia: Plan: Osteomyelitis - Status post left foot third digit amputation. No residual necrosis visualized intraoperatively Wet Gangrene - Resolved Cellulitis -Continue IV antibiotic therapy -Monitor erythema - Follow-up on intraoperative cultures Hyperglycemia -Management per primary team -Monitor perioperative glucose levels for surgical optimization SEPSIS workup: -WBC 6.51 -HR 92 -RR 18 -Tmax 98.6 -CRP 54.6 -ESR N/A Podiatry Surgical Plan: - No further surgical intervention by podiatry during this admission Podiatry Discharge Plan: - Okay to discharge home from podiatry standpoint on broad-spectrum oral antibiotics. These can be tailored in the outpatient setting once culture and sensitivity results -Weightbearing as tolerated in postop shoe - Recommend follow-up with podiatry within 1 week of discharge from hospital PDMP PDMP Reviewed: Not Reviewed Attestations Medical Necessity Statement*: See hospital's note Coding Level of Care Code Acute Code for [facility] Fwd Diagnoses Osteomyelitis M86.9 Cellulitis L03.90 Wet gangrene I96 Hyperglycemia R73.9
[2024-11-11 07:48] VITALS: BP 163/92; PULSE 86; RESP 16; TEMP 36.5; O2SAT 96
--- NOTE | 2024-11-11 07:56 | PC.SOCIAL ---
IMM Update pg 2 of IMM Updated and reviewed w/ patient. Copy provided and copy dated, initialed and placed in chart.
--- NOTE | 2024-11-11 07:57 | PC.SOCIAL ---
IMM Update pg 2 of IMM Updated and reviewed w/ patient. Copy provided and copy dated, initialed and placed in chart.
--- NOTE | 2024-11-11 08:30 | PM.DCS ---
Discharge Providers Date of Admission: 11/09/24 12:08 Date of Discharge: November 11, 2024 Attending Provider at Admission: Leonardo Ferguson Attending Provider at Discharge: Leonardo Ferguson Diagnoses at Discharge Discharge Diagnosis 1. Osteomyelitis: 2. Cellulitis: 3. Wet gangrene: 4. Hyperglycemia: Reason for Visit Reason for Visit: lt foot toe inj Brief History: Evan Iverson Jr is a 64 year old gentleman with history of type 2 diabetes mellitus, previously on insulin glargine (Lantus) 22 units in 2021, presents after noticing his left third toenail came off on Saturday; toe found to be necrotic in the emergency department today. Last documented hemoglobin A1c was 7% in 2021. He had stopped all diabetes medications sometime since 2021 after previously declining a statin and reporting plans to see someone in [place] regarding a ?diabetes cure.? Diabetes history is complicated by peripheral neuropathy and a prior amputation in 2021 following a diabetic foot ulcer. Reports chronic diarrhea that is not new. Denies fever, chills, sore throat, rhinorrhea, sneezing, cough, nausea, vomiting, new rashes, hematochezia, melena, hematuria, or dysuria. Denies exertional chest pain, dyspnea on exertion, or calf pain with walking. States he is not taking any medications currently and only takes vinegar shots. A primary care visit in May 2024 reportedly started escitalopram for anxiety, and he declined glucose-lowering medications. In the ED: BP 156/104, HR 92, RR 18, Temp 98.6?F, SpO2 96% on room air. Labs: white count normal, hemoglobin/platelets normal, sodium 130, potassium 4.8, chloride 91, glucose 538, bicarbonate 25, anion gap 18.8, BUN 19, creatinine 1.1, lactic acid 1.2, liver tests normal, C-reactive protein 54.6, albumin 3.9. Serum ketones positive. Arterial blood gas: pH 7.33, pCO2 40.3, pO2 20.5. Toe X-ray: no bony destruction to suggest osteomyelitis; prior postoperative changes of remote left grade 2 amputation. Exam comments include difficulty palpating a strong dorsalis pedis pulse on the left; the foot is warm, not mottled or cyanotic; signs of reduced arterial perfusion such as hair loss and smooth skin were noted. Left third toe shows swelling with thickened cornified tissue, minimal surrounding erythema of the distal foot, ulceration with tissue loss at the distal third phalanx, and apparent bone exposure. Code status discussed; patient agrees to full resuscitative efforts. Health care decision-maker identified as daughter, Elke Pichardo. Hospital Course Hospital Course He was admitted and assessed by podiatry started on IV antibiotic broad-spectrum coverage with Zosyn and vancomycin, with finding of A1c of 13 as discussed with him resumed on insulin for uncontrolled diabetes and will need follow-up for continued optimization. Duplex ultrasound was obtained as DP pulse could not be palpated, although the foot was otherwise perfused. Noted possible mild PAD. He underwent amputation of the left third toe and will complete antibiotic course with Augmentin for residual cellulitis with follow-up for reassessment with podiatry and primary provider in office. As discussed with him he started on insulin Lantus, sliding scale insulin. He is comfortable with checking his blood sugars and giving insulin injections. Additionally as discussed with him with recommendation for statin he is initiated on atorvastatin with discussion of watching out for any concerning symptoms for adverse effects with statin. He is also started on low-dose aspirin due to noted PAD. He is also started on lisinopril for management of hypertension with noted recurrently elevated blood pressures while in the hospital as discussed with him. Please reassess renal function and liver function. Continue optimization of control of diabetes. Follow-up cellulitis of lower extremity for resolution and continued healing after amputation. Physical Exam Const: COMMON NORMALS: patient oriented x3 and alert GENERAL APPEARANCE: cooperative ORIENTATION/CONSCIOUSNESS: Yes awake HENMT: COMMON NORMALS: oropharynx normal Neck/C-Spine: COMMON NORMALS: no JVD Resp: COMMON NORMALS: normal respiratory effort and clear to auscultation bilaterally AUSCULTATION: clear to auscultation bilaterally Cardio: COMMON NORMALS: no JVD, regular rhythm, S1 normal heart sound present, S2 normal heart sound present and No murmurs present (Cardio) RHYTHM: regular rhythm HEART SOUNDS: S1 normal heart sound present and S2 normal heart sound present GI: COMMON NORMALS: Normal to inspection, nondistended, normoactive bowel sounds present, Soft to palpation and non-tender PALPATION: Yes Soft to palpation Extremity: COMMON NORMALS: no joint enlargement and no pedal edema NARRATIVE EXTREMITY EXAM: Postsurgical dressing of left lower extremity. Foot is perfused. No worsening erythema. No drainage. Neuro: COMMON NORMALS: patient oriented x3 and moves all extremities SENSORIUM/ORIENTATION: Yes alert Skin: COMMON NORMALS: no rashes or lesions noted GENERAL SKIN EXAM: no rashes or lesions noted Discharge Data Studies Completed and Pending Completed Studies During Hospitalization Category Date Time Status XR toe LT min 2V [id number] Stat Exams 11/09/24 10:29 [place] [id number] Stat Ultrasound 11/09/24 12:06 Completed US arterial doppler lower extremity bila [CV Ultrasound 11/09/24 16:27 [place] [id number]] Routine US segmental pressure lower extremity LT [CV Ultrasound 11/09/24 12:06 [place] segpressure [place]gl [id number]] Stat Pending at discharge Category Date Time Status Basic Metabolic Panel AM LABS Lab 11/12/24 04:00 Ordered Blood Culture Stat Lab 11/09/24 11:39 Results Complete Blood Count w/Auto AM LABS Lab 11/12/24 04:00 Ordered Vancomycin Trough Timed Lab 11/11/24 12:00 Ordered Wound Culture Routine Lab 11/10/24 11:43 Received Pathology: Surgical [PTH] Routine Pth 11/10/24 09:50 Received Radiology Impressions Toe X-Ray 11/09/24 10:29 IMPRESSION: 1. Postoperative change from remote great toe amputation at the level of the proximal diaphysis of the 1st proximal phalanx. 2. No osseous destruction to suggest osteomyelitis. Duplex Scan Lower Extremity Artery 11/09/24 12:06 IMPRESSION: 1. Moderate to severe stenosis likely in the distal popliteal artery. No evidence of arterial occlusion. 2. Ankle-brachial index of 0.96. Doppler Study Ultrasound 11/09/24 16:27 IMPRESSION: 1. No evidence of stenosis or occlusion in the lower extremity. 2. Evidence of mild distal right disease with a toe brachial index of 0.54. Laboratory Results WBC 6.70 10^3/uL (3.29-11.43) 11/11/24 05:13 RBC 4.70 10^6/uL (3.85-5.65) 11/11/24 05:13 Hgb 13.10 g/dL (11.27-16.99) 11/11/24 05:13 Hct 39.3 % (37-53) 11/11/24 05:13 MCV 83.6 fl (82-101) 11/11/24 05:13 MCH 27.9 pg (27-33) 11/11/24 05:13 MCHC 33.3 g/dL (30-55) 11/11/24 05:13 RDW 11.8 % (12.1-15.1) L 11/11/24 05:13 Plt Count 226 10^3/cmm (157-399) 11/11/24 05:13 MPV 9.0 fL (7.4-10.4) 11/11/24 05:13 Neut % (Auto) 64.0 % 11/11/24 05:13 Lymph % (Auto) 20.0 % 11/11/24 05:13 Cannon % (Auto) 13.9 % 11/11/24 05:13 Eos % (Auto) 1.0 % 11/11/24 05:13 Baso % (Auto) 0.4 % 11/11/24 05:13 Neut # (Auto) 4.28 10^3/uL (1.8-7.7) 11/11/24 05:13 Lymph # (Auto) 1.3 10^3/uL (0.8-4.8) 11/11/24 05:13 Cannon # (Auto) 0.9 10^3/uL (0.2-0.9) 11/11/24 05:13 Eos # (Auto) 0.1 10^3/uL (0.0-0.8) 11/11/24 05:13 Baso # (Auto) 0.0 10^3/uL (0.0-0.1) 11/11/24 05:13 Nucleated RBC % (auto) 0 % 11/11/24 05:13 Nucleated RBCs # 0.0 /100WBC 11/11/24 05:13 Specimen Type Arterial 11/09/24 11:39 Sample Site Not specified 11/09/24 11:39 Jonny Test N/a 11/09/24 11:39 VBG pH 7.33 (7.32-7.42) 11/09/24 11:39 VBG pCO2 40.3 mmHg (41-51) L 11/09/24 11:39 VBG pO2 20.5 mmHg (25-40) L 11/09/24 11:39 VBG HCO3 21.3 mmol/L (24-28) L 11/09/24 11:39 VBG Base Excess -4.4 mmol/L (-3.0-3.0) L 11/09/24 11:39 VBG Hematocrit 37.4 % (42-52) L 11/09/24 11:39 O2 Delivery Device Not Reportable 11/09/24 11:39 Resizer Operator ID Gl 11/09/24 11:39 Sodium 134 mmol/L (136-145) L 11/11/24 05:13 Potassium 4.7 mmol/L (3.5-5.1) 11/11/24 05:13 Chloride 99 mmol/L (98-107) 11/11/24 05:13 Carbon Dioxide 24 mmol/L (22-29) 11/11/24 05:13 Anion Gap 15.7 (5-19) 11/11/24 05:13 BUN 13 mg/dL (8-23) 11/11/24 05:13 Creatinine 0.8 mg/dL (0.7-1.2) 11/11/24 05:13 GFR Calculation 96.7 mL/min (90-130) 11/11/24 05:13 Glucose 310 mg/dL (65-115) H 11/11/24 05:13 POC Glucose 341 mg/dL (70-110) H 11/11/24 06:21 Estimat Average Glucose 332 11/09/24 10:43 Hemoglobin A1c 13.2 % (4.0-6.0) H 11/09/24 10:43 Calculated Osmolality 290 mOsm/kg (285-295) 11/11/24 05:13 Lactic Acid 1.2 mmol/L (0.5-2.2) 11/09/24 10:43 Calcium 8.8 mg/dL (8.5-10.5) 11/11/24 05:13 Magnesium 2.1 mg/dL (1.7-2.3) 11/09/24 12:24 Total Bilirubin 0.5 mg/dL (0.15-1.2) 11/09/24 10:43 AST 12 U/L (0-40) 11/09/24 10:43 ALT 15 U/L (0-41) 11/09/24 10:43 Alkaline Phosphatase 91 U/L (40-130) 11/09/24 10:43 C-Reactive Protein 54.6 mg/L (0.0-4.9) H 11/09/24 10:43 Total Protein 7.2 g/dL (6.6-8.7) 11/09/24 10:43 Albumin 3.9 g/dL (3.5-5.2) 11/09/24 10:43 Globulin 3.3 g/dL (1.3-4.6) 11/09/24 10:43 Nasal MRSA (PCR) Not detected (Negative) 11/09/24 14:40 Serum Ketones Positive (Negative) H 11/09/24 10:43 Vitals Last Vital Signs Temp 97.7 F 11/11/24 07:48 Pulse 86 11/11/24 07:48 Resp 16 11/11/24 07:48 BP 163/92 11/11/24 07:48 Pulse Ox 96 11/11/24 07:48 O2 Del Method Room Air 11/11/24 07:48 Discharge Plan Discharge Patient Disposition: Home Condition: Stable Prescriptions: New insulin glargine [Lantus Solostar U-100 Insulin] 100 unit/mL (3 mL) insulin pen 20 unit SUBCUT DAILY Qty: 15 3RF amoxicillin-pot clavulanate [Augmentin] 500-125 mg tablet 1 tab PO BID 10 Days Qty: 20 0RF aspirin 81 mg tablet 81 mg PO DAILY Qty: 90 0RF atorvastatin [Lipitor] 40 mg tablet 40 mg PO QPM Qty: 90 0RF lisinopril 2.5 mg tablet 2.5 mg PO DAILY Qty: 30 0RF insulin lispro [Humalog U-100 Insulin] 100 unit/mL Solution See Rx Instructions .ROUTE .COMPLEX Qty: 10 3RF Rx Instructions: Three times daily before meals Glucose: 141-180 - 2 units 181-220 - 3 221-260 - 4 261-300 - 5 301-350 - 6 351-400 - 7 >400 - 8 units acetaminophen 325 mg Tablet 650 mg PO Q6H PRN (Reason: Mild/Mod Pain Or Temp >/= 101) Qty: 30 0RF Discharge Order = DC NOW: Discharge Order (Routine); Ordered 11/11/24 Ordered By: Leonardo Ferguson Referrals: Sreekanth Balbuena FNP-C [Nurse Practitioner, Family Practice] - 11/18/24 11:40 am Referral Note: Florencio Roberts DPM [Physician, Podiatry] - 11/16/24 3:00 pm Referral Note: Ender Rosales MD [Physician, Endocrinology] - 2 weeks Referral Note: We have notified your physician's clinic of the need for a follow-up appointment to be scheduled. If you have not heard from them within the next 2 business days, please call them directly. Discharge Diet: Cardiac and Diabetic Discharge Activity: Limit activity as instructed Patient Instructions: Diabetes and Diet, Lisinopril (By mouth), Acetaminophen (By mouth), Aspirin (By mouth), Amoxicillin/Clavulanate Potassium (By mouth), Atorvastatin (By mouth), Insulin Glargine (By injection), Insulin Lispro (By injection) (Humalog, Humalog Pen, Lispro-PFC,..., Acute Wound Care (DC), Diabetes and Your Skin (GEN), Type 2 Diabetes Management for Adults (GEN), Toe Amputation (DC), Opioid Safety, Post Anesthesia Care, Pain Management, Patient Portal & Gerardo Instructions Activity Restrictions/Additional Instructions: Continue to monitor glucose at home 3 times daily Target blood glucose 100-140. Resume insulin Lantus and use short acting insulin during the day to help correct blood glucose. Avoid low blood sugars. Hold insulin if your blood sugars less than 100. If your blood sugars less than 70 take sugary snacks and we recheck in 10 to 15 minutes. Seek medical attention if sugars are not improving. Monitor your blood pressures at least twice daily due to noted elevated blood pressures in the hospital with finding of hypertension. You are started on lisinopril to both help manage your blood pressures as well as to reduce the risk of kidney damage with diabetes. Follow-up with your primary doctor and endocrinology for continued optimization of blood glucose control with diabetes and hypertension. Seek medical attention in case of any worsening or new concerning symptoms. Discharge Attestations Time Spent in Discharge Care*: greater than 30 min Status at Discharge: Cognitive status at discharge: cognitively intact, Behavioral status at discharge: cooperative, Quality Metrics Clinical Quality Measures [ No reported AMI, CVA or VTE this stay] Coding Level of Care Code 24347 Total time (in minutes) for Discharge: 45 Diagnoses Osteomyelitis M86.9 Cellulitis L03.032 Laterality: left Site of cellulitis: extremity Site of cellulitis of extremity: toe Wet gangrene I96 Hyperglycemia R73.9
--- NOTE | 2024-11-11 09:56 | PC.CHAP ---
Pastoral Care Encounter/Spiritual Assessment Type of Contact [] Declined motor vehicle emissions inspector visit [] Patient/Family/Request visit [] Outpatient visit [] Follow-up visit [] Physician referral [] Code/Alert [x] Routine visit [] Staff referral [] Actively dying [] Patient sleeping [] Family support [] [] Out of room [] Palliative care [] [] Receiving care in room [] Pre-surgical visit [] Trauma [] Long length of stay [] ICU visit [] Other: Relational/Emotional Strength [x] Patient feels connected with others/family/visitors/staff [] Distress [] Loneliness/isolation [] Abandonment Spirituality of Patient [x] Person of [place] [] Attends [employer] of their [place] [x] Believes in Prayer [] Reads Bible or Anglican materials [] There are Spiritual issues to be addressed Mut[employer] Puncher Interventions [x] Prayer [x] Active listening [] Non-anxious presence [x] Spiritual/emotional support [] Crisis/trauma care [] Spiritual counseling [] Bereavement support [] Provided bereavement packet [] Provided Bible/devotional materials [] Provided toy/stuffed animal, coloring book to patient or family member [] Provided Communion [] Anointing/[place] [] Salvation [x] Completed spiritual assessment [] Other: Impact on Illness or Injury [] Angry [] Fearful [] Anxious [] Often cries [] Exhaustion [] Unable to work [] Unable to attend mandaen [] Unable to walk/stand [] Unable to read [] Unable to drive [] Unable to eat/drink [] Unable to sleep [] Unable to be with family [] Patient intubated [] Other: Summary Time spent with patient 5 min
--- NOTE | 2024-11-11 10:43 | PC.NURSE ---
Patient educated on diabetes management, how to check blood sugars, given a subcutaneous injection, blood pressure and blood sugar logs and when to seek medical attention. He was informed of all his follow up appointments, understanding was verbalized and family was in the room during the conversation who also understood. Patient was discharged.
== END 2024-11-11 10:45 | disposition home or self-care (01) | DRG 617 ==
LOC: ER 11:27 → MEDSURG 16:33
PROVIDERS: Podiatrist Foot & Ankle Surgery; Admitting Provider Internal Medicine; Emergency Provider Physician Assistant; Visit Provider Internal Medicine
PROC: 0Y6U0Z0 Detachment at Left 3rd Toe, Complete, Open Approach (ICD-10-PCS; principal; 2024-11-10 08:55)
DX: E11.69 Type 2 diabetes mellitus with other specified complication (principal); E11.52 Type 2 diabetes mellitus with diabetic peripheral angiopathy with gangrene; I96 Gangrene, not elsewhere classified; M86.9 Osteomyelitis, unspecified; L03.116 Cellulitis of left lower limb; L02.612 Cutaneous abscess of left foot; E11.65 Type 2 diabetes mellitus with hyperglycemia; E11.42 Type 2 diabetes mellitus with diabetic polyneuropathy; T38.3X6A Underdosing of insulin and oral hypoglycemic [antidiabetic] drugs, initial encounter; K52.9 Noninfective gastroenteritis and colitis, unspecified; F41.9 Anxiety disorder, unspecified; I10 Essential (primary) hypertension; Z91.128 Patient's intentional underdosing of medication regimen for other reason; Z79.82 Long term (current) use of aspirin; Z89.412 Acquired absence of left great toe
CPT/HCPCS: 36415; 36416; 73660; 80048; 80053; 82009; 82803; 82962; 83036; 83605; 83735; 85025; 86140; 87040; 87070; 87077; 87186; 88305; 88311; 93005; 93922; 93923; 93926; 96365; 96367; 96372; 96375; 99285; J1650; J1815; J2543; J2704; J3010; J3372; J3373; J3490; J7030; J7120

== ENCOUNTER → 2024-11-16 14:41 | Outpatient (BNVA) | payer MEDICARE, SELFPAY | PROVIDERS: PCP Nurse Practitioner; Visit Provider Podiatrist Foot & Ankle Surgery | DX: L03.116 Cellulitis of left lower limb (principal); M86.672 Other chronic osteomyelitis, left ankle and foot | CPT/HCPCS: 99213 ==